=== PATIENT | male | born 1950 | race Caucasian/White ===

== ENCOUNTER 2020-05-20 09:00 | Emergency (ER) | payer MEDICARE, OTHER, SELFPAY ==
[2020-05-20 09:05] VITALS: BP 158/104; PULSE 72; RESP 18; TEMP 36.3; O2SAT 95; BMI 23.7
--- NOTE | 2020-05-20 09:24 | CT_ITS ---
WS: [id number] CT HEAD TECHNIQUE: Noncontrast CT of the head obtained from the skullbase to the vertex. CLINICAL INFORMATION: difficulty walking COMPARISON: MRI and CT DLP: 904.[address] scans at [facility] use at least one of these dose optimization techniques: automat ed exposure control; mA and/or kV adjustment per patient size (includes targeted exams where dose is matched to clinical indication); or iterative reconstruction. FINDINGS: No evidence of intracranial hemorrhage or mass effect. Ventricular system and basal cisterns are coles nt. Mild small vessel changes with moderate parenchymal volume loss. No extra-axial fluid collections . No evidence of mass or mass effect. Normal fam-white differentiation. Mild mucosal thickening ethmoid air cells. Mastoid air cells are well aerated. CT/CT head wo con* [id number] IMPRESSION: 1. No evidence of intracranial hemorrhage or mass effect. 2. Mild small vessel changes. Moderate parenchymal volume loss. 3. No acute intracranial findings. Notified Tyree Francis DO at 05/20/2020 9:55 AM.
--- NOTE | 2020-05-20 09:26 | ED_ITS ---
HPI - Neuro Symptoms/Deficit General: Chief Complaint: Neuro Symptoms/Deficit Stated Complaint: excessive drooling/stumbling/shakes Time Seen by Provider: 05/20/20 09:01 History of Present Illness: HPI Narrative: 61-year-old male with a previous history of stroke with difficulties walking and occasional difficulty with drooling from the right side of his mouth. He said this is been a residual effect of his previous stroke. He was on going to physical therapy today and he mentioned to them that he was still having difficulty with this they referred him to the emergency room. In addition to this he has had some tremor as well. At the time he presents here he has no significant deficits. Onset (ago): minute(s) Location: right face and right leg History of same: Yes Severity: mild Quality: weak Relieving factors: none Exacerbating factors: none Context: gradual onset Associated symptoms: Deny chest pain, malaise, nausea or vomiting Treatments Prior to Arrival: none Review of Systems Const: Denies: fever(s), chills, body aches, change in appetite, fatigue or malaise ENMT: Denies: throat pain, ear or mastoid pain, nasal discharge or nasal congestion Card: Denies: chest pain, edema, dyspnea on exertion or orthopnea Resp: Denies: dyspnea, productive cough or non-productive cough GI: Denies: abdominal pain, nausea, vomiting, hematemesis, coffee ground emesis, diarrhea, constipation, bloating, hematochezia or melena : Denies: flank pain, dysuria, urinary frequency or urinary urgency Skin/Breast: Denies: rash or pruritus PFS ED PFSH: Medical History (Updated 05/21/20 @ 05:31 by Tyree Francis DO) CVA (cerebral vascular accident) NIH stroke score NIHSS: Level Of Consciousness - 1a: 0 Level Of Consciousness Questions - 1b: Both Correct Level Of Consciousness Commands - 1c: Both Correct Best Gaze - 2: Normal Visual Delong - 3: No Visual Loss Facial Palsy - 4: Normal Motor Arm Right - 5: No Drift Motor Arm Left - 5: No Drift Motor Leg Right - 6: No Drift Motor Leg Left - 6: No Drift Limb Ataxia - 7: Absent Sensory - 8: Normal Best Language - 9: No Aphasia Dysarthia - 10: Normal Extinction And Inattention - 11: 0 Score: Total Score: 0 Physical Exam Const: COMMON NORMALS: no acute distress GENERAL APPEARANCE: cooperative and comfortable ORIENTATION/CONSCIOUSNESS: Yes awake, Yes oriented to person, Yes oriented to place and Yes oriented to time HENMT: COMMON NORMALS: normocephalic, atraumatic and hearing grossly normal bilaterally HEAD & SCALP: normocephalic and atraumatic Eye: COMMON NORMALS: Equal, round and reactive pupils present, EOMs intact bilaterally, conjunctivae normal and no scleral icterus CONJUNCTIVA: Yes conjunctivae normal PUPIL: Yes Equal, round and reactive pupils present Neck/C-Spine: COMMON NORMALS: full ROM, no lymphadenopathy, supple and no JVD Lymph: LYMPHATIC: no lymphadenopathy noted and no lymphedema noted Resp: COMMON NORMALS: normal respiratory effort, No retractions, No use of accessory muscles and clear to auscultation bilaterally AUSCULTATION: clear to auscultation bilaterally Cardio: COMMON NORMALS: no JVD, regular rate, regular rhythm and No murmurs present (Cardio) RATE: regular rate RHYTHM: regular rhythm GI: COMMON NORMALS: Soft to palpation and No hepatosplenomegaly present AUSCULTATION: Yes normoactive bowel sounds PALPATION: Yes Soft to palpation, No Tenderness to palpation present (GI), No Guarding due to palpation present (GI) and Yes No hepatosplenomegaly present Extremity: COMMON NORMALS: normal to inspection, capillary refill normal, no clubbing, cyanosis or edema, no calf tenderness and no pedal edema Neuro: SENSORIUM/ORIENTATION: Yes oriented to person, Yes oriented to place and Yes oriented to time Skin: COMMON NORMALS: no rashes or lesions noted GENERAL SKIN EXAM: no rashes or lesions noted Course Vital Signs: Vital signs: Vital Signs Temperature 97.3 F L 05/20/20 09:05 Pulse Rate 50 L 05/20/20 12:43 Respiratory Rate 18 05/20/20 12:43 Blood Pressure 132/88 05/20/20 12:43 Pulse Oximetry 98 05/20/20 12:43 MDM - Neuro Symptoms/Deficit MDM Narrative: Medical decision making narrative: No focal neurologic deficits at this time other than very mild right-sided deficits. Stroke score [address] is negative. His blood pressure is elevated somewhat and could be good for him to start on something else. He cannot take aspirin due to GI intolerance. We will start him on Plavix and amlodipine have him follow-up with his primary care doctor within the next week return if has further problems. Lab Data: Labs: Lab Results 05/20/20 05/20/20 Range/Units 11:35 11:35 WBC 8.3 (4.0-10.0) 10^3/ uL RBC 4.27 (4.1-5.3) 10^6/u L Hgb 13.6 (11.7-16.6) g/dL Hct 41.2 L (42.0-52.0) % MCV 96.5 H (80-94) fL MCH 31.9 (28.0-34.0) pg MCHC 33.0 (30.0-36.0) g/dL RDW 12.7 (12.1-15.1) % Plt Count 282 (130-400) 10^3/c mm MPV 9.3 (7.4-10.4) fL Neut % (Auto) 64.4 % Lymph % (Auto) 24.5 % [place] % (Auto) 7.7 % Eos % (Auto) 2.7 % Baso % (Auto) 0.5 % Neut # (Auto) 5.34 (1.8-7.7) 10^3/u L Lymph # (Auto) 2.0 (0.8-4.8) 10^3/u L [place] # (Auto) 0.6 (0.2-0.9) 10^3/u L Eos # (Auto) 0.2 (0.0-0.8) 10^3/u L Baso # (Auto) 0.0 (0.0-0.1) 10^3/u L Nucleated RBC % (a uto) 0 % Nucleated RBCs # 0.0 /100WBC Sodium 140 (136-145) mmol/L Potassium 4.5 (3.5-5.1) mmol/L Chloride 106 (98-107) mmol/L Carbon Dioxide 28 (22-29) mmol/L Anion Gap 10.5 (5-19) BUN 14 (8-23) mg/dL Creatinine 0.7 (0.7-1.2) mg/dL GFR Calculation 112.1 (90-130) mL/min Glucose 89 (65-115) mg/dL Calculated Osmolal ity 290 (285-295) mOsm/k g Calcium 9.1 (8.5-10.5) mg/dL Total Bilirubin 0.3 (0.15-1.2) mg/dL AST 19 (0-40) U/L ALT 19 (0-41) U/L Alkaline Phosphata se 64 (40-130) IU/L Total Protein 7.0 (6.6-8.7) g/dL Albumin 4.1 (3.5-5.2) g/dL Globulin 2.9 (1.3-4.6) g/dL Discharge Plan Discharge Patient Disposition: Home Clinical Impression: Transient cerebral ischemia, Benign essential HTN Condition: Stable Prescriptions: New Plavix 75 mg tablet 75 mg PO DAILY Qty: 30 RF: 0 amlodipine 2.5 mg tablet 2.5 mg PO DAILY Qty: 30 RF: 0 No Action metoprolol tartrate 50 mg Tablet 50 mg PO BID RF: 0 Discharge Orders: Discharge Order (Routine); Ordered 05/20/20 Ordered By: Tyree Francis Referrals: Loki Wells DO [Primary Care Provider] - Discharge Diet: Usual diet Discharge Activity: Increase activity as tolerated Activity Restrictions/Additional Instructions: Follow-up with your primary care doctor within a week to recheck blood pressure and review use of Plavix. Return immediately if you have any problems. Coding Level of Care Code ED Designated Broker for Khushi Fwd Exam Comprehensive
[2020-05-20 11:39] VITALS: BP 177/91; PULSE 55; RESP 14; O2SAT 95
[2020-05-20 11:43] LABS: Basophils % 0.5 %; Eosinophils # 0.2 10^3/uL (0.0-0.8); Eosinophils % 2.7 %; Hematocrit 41.2 % (42.0-52.0); Hemoglobin 13.6 g/dL (11.7-16.6); Lymphocytes % 24.5 %; Mean Corpuscular Hemoglobin 31.9 pg (28.0-34.0); Mean Corpuscular Volume 96.5 fL (80-94); Mean Platelet Volume 9.3 fL (7.4-10.4); Monocytes # 0.6 10^3/uL (0.2-0.9); Monocytes % 7.7 %; Neutrophils # 5.34 10^3/uL (1.8-7.7); Neutrophils % 64.4 %; Nucleated Red Blood Cells % 0 %; Platelet Count 282 10^3/cmm (130-400); Red Blood Count 4.27 10^6/uL (4.1-5.3); Red Cell Distribution Width 12.7 % (12.1-15.1); White Blood Count 8.3 10^3/uL (4.0-10.0)
[2020-05-20 12:00] LABS: Alanine Aminotransferase 19 U/L (0-41); Albumin Level 4.1 g/dL (3.5-5.2); Alkaline Phosphatase 64 IU/L (40-130); Anion Gap 10.5 (5-19); Aspartate Amino Transferase 19 U/L (0-40); Blood Urea Nitrogen 14 mg/dL (8-23); Calcium 9.1 mg/dL (8.5-10.5); Carbon Dioxide 28 mmol/L (22-29); Chloride 106 mmol/L (98-107); Globulin 2.9 g/dL (1.3-4.6); Glomerular Filtration Rate 112.1 mL/min (90-130); Glucose 89 mg/dL (65-115); Osmolality Calculated 290 mOsm/kg (285-295); Potassium 4.5 mmol/L (3.5-5.1); Sodium 140 mmol/L (136-145); Total Bilirubin 0.3 mg/dL (0.15-1.2)
[2020-05-20 12:43] VITALS: BP 132/88; PULSE 50; RESP 18; O2SAT 98
== END 2020-05-20 12:43 | disposition home or self-care (01) ==
PROVIDERS: Emergency Provider Family Medicine; PCP Electrodiagnostic Medicine
DX: G45.9 Transient cerebral ischemic attack, unspecified (principal); I10 Essential (primary) hypertension; Z86.73 Personal history of transient ischemic attack (TIA), and cerebral infarction without residual deficits
CPT/HCPCS: 12345; 70450; 80053; 85025; 99282; 99283

== ENCOUNTER 2020-06-18 13:59 | Outpatient (CLI) | payer MEDICARE, OTHER, SELFPAY ==
--- NOTE | 2020-06-18 14:12 | USCV_ITS ---
Lyndsay Perea Age: 70 Gender: M : 1950 Exam Date: 06/18/2020 14:26 Ordering Phys: Loki Wells DO Technologist: Moises Bajwa Exam Location: [facility] [place]_ Indication: DYSURTHRIA. HYPERTENSION Risk Factors: Previous Vascular Surgery: Right Brachial BP: / Left Brachial BP: / Right Left Velocity (cm/s) Spectral Plaque Velocity (cm/s) Spectral Plaque Syst/Diast Broadening Syst/Diast Broadening 104.70/24.30 Prox CCA 130.10/ 28.70 82.80/ 22.30 Mid CCA 93.70 / 27.60 65.80/ 17.90 Distal CCA 76.10 / 25.40 71.50/ 13.20 Prox ICA 86.20 / 12.40 50.00/ 17.90 Mid ICA 93.20 / 34.20 114.50/43.60 Distal ICA 93.20 / 37.30 101.80 ECA 137.80 0.60 ICA/CCA 0.99 Antegrade Vertebral Antegrade 36.30/ 11.20 cm/s 67.60/ 21.00 cm/s Tri Subclavian Tri 144.4 93.10 0 FINDINGS Comparison: none available. No significant elevation of systolic or diastolic velocities. Waveforms are normal. Minimal bilateral, intimal thickening with no elevation of velocity. CONCLUSIONS Bilateral ICA stenosis less than 50%. Minimal carotid atherosclerosis. Dr. Ariadna Camarena DO (Electronically Signed) Final Date: 18 June 2020 16:03 S
== END 2020-06-18 14:00 | disposition home or self-care (01) ==
PROVIDERS: PCP Electrodiagnostic Medicine; Visit Provider Electrodiagnostic Medicine
DX: R47.1 Dysarthria and anarthria (principal); I10 Essential (primary) hypertension; G60.9 Hereditary and idiopathic neuropathy, unspecified; F17.210 Nicotine dependence, cigarettes, uncomplicated; E78.5 Hyperlipidemia, unspecified; I63.50 Cerebral infarction due to unspecified occlusion or stenosis of unspecified cerebral artery; I65.23 Occlusion and stenosis of bilateral carotid arteries
CPT/HCPCS: 93880

== ENCOUNTER 2020-07-16 20:00 | Outpatient (CLI) | payer MEDICARE, OTHER, SELFPAY | END 2020-07-16 20:01 | disposition home or self-care (01) | LOC: SLEEP 07-17 09:57 | PROVIDERS: PCP Electrodiagnostic Medicine; Visit Provider Electrodiagnostic Medicine | DX: G47.33 Obstructive sleep apnea (adult) (pediatric) (principal); J44.1 Chronic obstructive pulmonary disease with (acute) exacerbation | CPT/HCPCS: 95810 ==

== ENCOUNTER 2020-07-23 09:52 | Outpatient (CLI) | payer MEDICARE, OTHER, SELFPAY ==
--- NOTE | 2020-07-23 10:03 | CT_ITS ---
WS: [id number] CTA OF THE CHEST WITH PULMONARY EMBOLISM PROTOCOL TECHNIQUE: High-resolution contrast enhanced CTA of the chest with coronal and sagittal reformatted i mages with pulmonary embolism protocol. MIP images are also reviewed. CLINICAL INFORMATION: COPD/CHEST PAIN/DYSPNEA ON EXERTION/HTN COMPARISON: CT chest November 30, 2017 DLP: 548.[address] scans at [facility] use at least one of these dose optimization techniques: automat ed exposure control; mA and/or kV adjustment per patient size (includes targeted exams where dose is matched to clinical indication); or iterative reconstruction. FINDINGS: Proximal main pulmonary arteries are normal. Normal segmental and subsegmental pulmonary arteries. No evidence of pulmonary embolus. Normal caliber thoracic aorta. No mediastinal or hilar lymphadenopath y. No axillary lymphadenopathy. Moderate chronic emphysematous changes. No acute pulmonary infiltrates. A few small hazy groundglass pulmonary nodules in the right upper lobe measuring 5 mm, left lower lobe measuring 5 mm, right lower lobe laterally measuring 6 mm with subsegmental atelectasis in the lower lobes. Additional fibrotic nodule right upper lobe measuring 4 mm. Pleural thickening and fibrosis in the right middle lobe. Adrenal glands are normal. Small esophageal hiatal hernia. CT/CT angio chest PE protcl [id number] IMPRESSION: 1. No evidence of pulmonary embolus. 2. No mediastinal or hilar lymphadenopathy. 3. Moderate chronic emphysematous changes. No acute pulmonary infiltrates. 4. A few noncalcified groundglass pulmonary nodules measuring 5 to 6 mm descri bed above. A few of these are slightly more prominent compared to 2018. Recomm end 6 month follow-up. 5. Subsegmental atelectasis in the lung bases.
--- NOTE | 2020-07-23 10:03 | USCV_ITS ---
Lyndsay Perea Age: 70 Gender: M : 1950 Exam Date: 07/23/2020 10:13 Ordering Phys: Loki Wells DO Technologist: Paula Thomas [place] [facility] [place]ication: copd, chest pain BP: 121 / 66 HR: 127 Rhythm: Sinus Technical Quality: Technically difficult study MEASUREMENTS (Male / Female) Normal Values 2D ECHO LV Diastolic Diameter PLAX 2.5 cm 4.2 - 5.9 / 3.9 - 5.3 cm LV Systolic Diameter PLAX 1.7 cm LV Chamber Size 3.6 cm IVS Diastolic Thickness 1.7 cm 0.6 - 1.0 / 0.6 - 0.9 cm IVS Systolic Thickness 2.1 cm LVPW Diastolic Thickness 2.2 cm 0.6 - 1.0 / 0.6 - 0.9 cm LVPW Systolic Thickness 1.9 cm RV Chamber Size 3.2 cm LVOT Diameter 2.0 cm LV Ejection Fraction 2D Teich 62.4 % LV Ejection Fraction MOD 2C 62.6 % LV Ejection Fraction 2C AL 61.2 % LA Width 2.9 cm LA Height 4.2 cm RA Width 4.2 cm RA Height 2.6 cm DOPPLER AV Peak Velocity 124.0 cm/s LVOT Peak Velocity 92.0 cm/s AV Area Cont Eq vti 2.3 cm squared AV Area Cont Eq pk 2.4 cm squared MV Area PHT 3.3 cm squared Mitral E to A Ratio 1.0 MV E' Velocity 42.0 cm/s Mitral E to MV E' Ratio 4.5 Mitral E to LV E' Lateral Ratio 4.3 Mitral E to LV E' Septal Ratio 4.8 TR Peak Velocity 220.0 cm/s TR Peak Gradient 19.4 mmHg TV Peak E Velocity 82.0 cm/s Right Atrial Pressure 3.0 mmHg Pulmonary Artery Systolic Pressu 22.4 mmHg PV Peak Velocity 39.0 cm/s RV Acceleration Time 0.1 s RV Ejection Time 0.3 s RV AcT/ET 0.4 FINDINGS Left Ventricle Normal left ventricular cavity size. Normal left ventricular systolic function. Left ventricular ejection fraction is estimated at 60 %. Although no diagnostic regional wall motion abnormality could be identified, this possibilty cannot be completely excluded. Normal diastolic function. Right Ventricle Normal right ventricular size and systolic function. Right ventricular systolic pressure 22.4 mmHg. Right Atrium Right atrium not well visualized. Mildly increased right atrial size. Left Atrium Normal left atrial size. Mitral Valve Structurally normal mitral valve. No mitral valve stenosis. Trace mitral valve regurgitation. Aortic Valve Aortic valve not well visualized. No aortic valve stenosis. No aortic valve regurgitation. Tricuspid Valve Structurally normal tricuspid valve. Mild tricuspid valve regurgitation. Pulmonic Valve Pulmonic valve not well visualized. Pericardium No pericardial effusion. Aorta Aorta not well visualized. CONCLUSIONS 1. This is a technically difficult study. 2. Normal left ventricular cavity size and systolic function. Left ventricular ejection fraction is estimated at 60 %. Although no diagnostic regional wall motion abnormality could be identified, this possibilty cannot be completely excluded. Normal diastolic function. 3. No significant valvular abnormality. 4. No prior similar studies to compare. Jessica Mo MD (Electronically Signed) Final Date: 27 July 2020 07:29 S
[2020-07-23 11:02] LABS: Blood Urea Nitrogen 20 mg/dL (8-23); Glomerular Filtration Rate 95.8 mL/min (90-130)
[2020-07-23] MEDS: iohexol 350 mg/mL 100 mL Btl IV (11:43)
== END 2020-07-23 09:53 | disposition home or self-care (01) ==
LOC: CT 09:53
PROVIDERS: PCP Electrodiagnostic Medicine; Visit Provider Electrodiagnostic Medicine
DX: J44.9 Chronic obstructive pulmonary disease, unspecified (principal); R07.9 Chest pain, unspecified; R06.00 Dyspnea, unspecified; I10 Essential (primary) hypertension; R91.8 Other nonspecific abnormal finding of lung field
CPT/HCPCS: 71275; 82565; 84520; 93306

== ENCOUNTER 2020-12-18 10:58 | Outpatient (CLI) | payer MEDICARE, OTHER, SELFPAY ==
--- NOTE | 2020-12-18 11:18 | FL_ITS ---
WS: [id number] Modified barium swallow, 12/18/2020 Clinical Data: Other dysphagia Comparison: None. Fluoroscopy time: 2.6 minutes. Findings: The patient had mild residue after swallowing did clear with double swallowing. There is premature sp illage with multiple consistencies. With thin barium there was aspiration. However with a chin tuck t here was only a trace of penetration. With food items there was moderate residue in the vallecula. It was occasional piriform is residue. FL/FL barium swallow modifd [id number] Impression: 1. Premature spillage with multiple consistencies. 2. Aspiration with liquids which improved with the chin tuck. 3. Mild residue in the vallecula and piriform sinus which cleared with swallowi ng.
== END 2020-12-18 10:59 | disposition home or self-care (01) ==
LOC: RAD 11:04
PROVIDERS: PCP Electrodiagnostic Medicine; Visit Provider Electrodiagnostic Medicine
DX: R13.10 Dysphagia, unspecified (principal); I63.9 Cerebral infarction, unspecified
CPT/HCPCS: 74230; 92611

== ENCOUNTER 2020-12-30 14:11 | Outpatient (RCR) | payer MEDICARE, OTHER, SELFPAY | END 2021-01-08 23:59 | disposition home or self-care (01) | LOC: SST 14:11 | PROVIDERS: PCP Electrodiagnostic Medicine; Referring Provider Electrodiagnostic Medicine; Visit Provider Electrodiagnostic Medicine | DX: I69.391 Dysphagia following cerebral infarction (principal) | CPT/HCPCS: 92526; 92610 ==

== ENCOUNTER → 2021-01-07 13:16 | Outpatient (BNVA) | payer MEDICARE, OTHER, SELFPAY | PROVIDERS: Family Provider Electrodiagnostic Medicine; PCP Electrodiagnostic Medicine; Visit Provider Electrodiagnostic Medicine | DX: Z01.812 Encounter for preprocedural laboratory examination (principal); Z20.822 Contact with and (suspected) exposure to COVID-19 | CPT/HCPCS: 87635 ==

== ENCOUNTER → 2021-01-07 13:16 | Outpatient (BNVA) | payer MEDICARE, OTHER, SELFPAY | PROVIDERS: Family Provider Electrodiagnostic Medicine; PCP Electrodiagnostic Medicine; Visit Provider Electrodiagnostic Medicine | DX: Z01.812 Encounter for preprocedural laboratory examination (principal); Z20.822 Contact with and (suspected) exposure to COVID-19 | CPT/HCPCS: 87635 ==

== ENCOUNTER 2021-01-09 06:00 | Outpatient (RCR) | payer MEDICARE, OTHER, SELFPAY | END 2021-02-08 23:59 | disposition home or self-care (01) | LOC: SST 06:00 | PROVIDERS: Family Provider Electrodiagnostic Medicine; PCP Electrodiagnostic Medicine; Referring Provider Electrodiagnostic Medicine; Visit Provider Electrodiagnostic Medicine | DX: I69.391 Dysphagia following cerebral infarction (principal) | CPT/HCPCS: 92507 ==

== ENCOUNTER 2021-01-13 07:47 | Outpatient (CLI) | payer MEDICARE, OTHER, SELFPAY ==
--- NOTE | 2021-01-13 12:36 | PFTS_ITS ---
Date of Study:01/13/21 Date of Dictation: 01/17/2021 MECHANICS: Forced vital capacity (FVC) is normal. Forced expiratory volume in one second (FEV1) is moderately reduced 56%. FEV1/FVC is reduced. Postbronchodilator study not performed.. FLOW VOLUME LOOP: Sloping of expiratory limb suggestive of airway obstruction . LUNG VOLUMES: Total lung capacity (TLC) is mildly increased. Residual volume (RV) is increased suggestive of moderate air trapping. DIFFUSING CAPACITY FOR CARBON MONOXIDE: Moderately reduced 50% . INTERPRETATION: The pulmonary function tests are consistent with moderate obstructive ventilatory defect with moderate air trapping. Prebronchodilator FVC is 3.77 L and 100%, prebronchodilator FEV1 1.61 L and 50% of predicted. Postbronchodilator study not performed. There is moderate gas transfer defect 50%. Overall study for history of COPD more likely emphysema. Clinical correlation is recommended. MTDD
== END 2021-01-13 07:48 | disposition home or self-care (01) ==
PROVIDERS: PCP Electrodiagnostic Medicine; Visit Provider Electrodiagnostic Medicine
DX: J44.9 Chronic obstructive pulmonary disease, unspecified (principal); R07.9 Chest pain, unspecified; R06.09 Other forms of dyspnea; I10 Essential (primary) hypertension
CPT/HCPCS: 94010; 94618; 94726; 94729

== ENCOUNTER 2021-02-12 06:58 | Outpatient (CLI) | payer MEDICARE, OTHER, SELFPAY ==
[2021-02-12 07:22] VITALS: BMI 23.7
--- NOTE | 2021-02-12 07:26 | ECG_ITS ---
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 Interpretive Statements NAME OF STUDY: LEXISCAN SESTAMIBI STRESS TEST INDICATION: Chest Pain PROCEDURE: At the baseline, the blood pressure was 125/86 mmHg, oxygen saturation 94% with a heart rate of 47 bpm. The electrocardiogram showed sinus bradycardia, normal axis with nonspecific ST depression. The Lexiscan was infused over a period of 20 seconds. A total of 0.4 milligrams of Lexiscan was infused. The stress phase was continued for a total of 5 minutes. Heart rate at the end of the stress phase was 65 bpm, oxygen saturation 95% with a blood pressure of 111/69 mmHg. The EKG at the peak infusion revealed sinus rhythm with no significant ST-T wave changes. The study was terminated due to protocol completion. Sestamibi was injected 20 seconds after the Lexiscan infusion. Blood pressure at the end of the recovery phase was 115/73 mmHg, oxygen saturation 93% with a heart rate of 64 beats per minute. CONCLUSION: 1. No significant EKG changes with the LexiScan infusion. 2. No LexiScan induced chest pain or cardiac arrhythmia. 3. Normal blood pressure and heart rate response. 4. Sestamibi/sestamibi perfusion scan pending; see separate report. Electronically Signed On 02-18-2021 12:49:38 CDT by Jessica Mo M.D. [id number]
--- NOTE | 2021-02-12 07:27 | NMCV_ITS ---
NM kimberly perf SPECT r/s* [id number] Lyndsay Perea Age: 70 Gender: M : 1950 Exam Date: 02/12/2021 08:19 Ordering Phys: Jessica Mo MD ([email or web address]) Technologist: PEDRO LUIS Lindquist Exam Location: [facility] Indications: CHEST PAIN STRESS TEST Please see separate stress test report in [facility] for full findings IMAGE PROTOCOL Rest/Stress 1 Lexiscan Day Radiopharmaceutical Dose (mCi) Administration Site Administered by Rest: Tc-99m 11.0 IV PEDRO LUIS Lindquist Sestamibi Stress:Tc-99m 32.7 IV PEDRO LUIS Lindquist Sestamibi Rest: 12-Feb-2021 60 Discovery 630 Stress: 12-Feb-2021 30 Discovery 630 0.4mg Lexiscan. Images obtained in supine and prone position. SPECT RESULTS Technical Quality: Excellent Raw Data Analysis: Normal, Subdiaphragmatic activity (Small hiatal hernia) Image Corrections: No attenuation or motion correction applied Summed Stress Score: 2 Summed Rest Score: 4 Summed Difference Score: 0 PERFUSION FINDINGS Small sized perfusion abnormality of mild severity of mid inferoseptal, apical septal and mid to apical inferior trujillo on rest images with improved tracer uptake in inferior wall on stress images. FUNCTIONAL RESULTS (calculated via Gated SPECT) Stress Image LV EF (%): 63 Stress EDV (mL):115 TID: 0.91 Stress ESV (mL):42 FUNCTIONAL FINDINGS: The left ventricle is normal in size. Transient Ischemia Dilatation of 0.91. There is normal left ventricular systolic function. The left ventricular ejection fraction is normal with a value of 63%. There is normal left ventricular wall thickening. IMPRESSIONS 1. Small sized perfusion abnormality of mild severity of mid inferoseptal, apical septal and mid to apical inferior trujillo with somewhat improved tracer uptake in stress images. 2. This may represent old myocardial infarction in right coronary artery territory or attenuation artifact. 3. Overall left ventricular systolic function is normal without regional wall motion abnormalities, LVEF=63%. 4. No coronary ischemia based on the study. Jessica Mo MD (Electronically Signed) Final Date: 13 February 2021 17:31 S
[2021-02-12] MEDS: regadenoson 0.4 Mg/5 ml Syringe IVP (08:58)
[2021-02-12 09:09] VITALS: BP 115/73; PULSE 61
== END 2021-02-12 06:59 | disposition home or self-care (01) ==
LOC: CDL 07:00
PROVIDERS: PCP Electrodiagnostic Medicine; Visit Provider Internal Medicine Cardiovascular Disease
DX: R07.9 Chest pain, unspecified (principal); I25.2 Old myocardial infarction
CPT/HCPCS: 78452; 93017; A9500; J2785

== ENCOUNTER 2021-06-19 08:54 | Outpatient (RCR) | payer MEDICARE, OTHER, SELFPAY | END 2021-07-11 23:59 | disposition home or self-care (01) | LOC: PULRHB 08:54 | PROVIDERS: PCP Electrodiagnostic Medicine; Visit Provider Internal Medicine Pulmonary Disease | DX: J44.9 Chronic obstructive pulmonary disease, unspecified (principal) | CPT/HCPCS: 94618 ==

== ENCOUNTER 2021-07-12 06:00 | Outpatient (RCR) | payer MEDICARE, OTHER, SELFPAY | END 2021-08-11 23:59 | disposition home or self-care (01) | LOC: PULRHB 06:00 | PROVIDERS: PCP Electrodiagnostic Medicine; Visit Provider Internal Medicine Pulmonary Disease | DX: J44.9 Chronic obstructive pulmonary disease, unspecified (principal) | CPT/HCPCS: 94626; G0424 ==

== ENCOUNTER 2021-08-12 06:00 | Outpatient (RCR) | payer MEDICARE, OTHER, SELFPAY | END 2021-09-08 23:59 | disposition home or self-care (01) | LOC: PULRHB 06:00 | PROVIDERS: PCP Electrodiagnostic Medicine; Visit Provider Internal Medicine Pulmonary Disease | DX: J44.9 Chronic obstructive pulmonary disease, unspecified (principal) | CPT/HCPCS: 94626; G0424 ==

== ENCOUNTER 2021-09-09 06:00 | Outpatient (RCR) | payer MEDICARE, OTHER, SELFPAY | END 2021-10-09 23:59 | disposition home or self-care (01) | LOC: PULRHB 06:00 | PROVIDERS: PCP Electrodiagnostic Medicine; Visit Provider Internal Medicine Pulmonary Disease | DX: J44.9 Chronic obstructive pulmonary disease, unspecified (principal) | CPT/HCPCS: 94626 ==

== ENCOUNTER 2022-01-07 12:16 | Outpatient (CLI) | payer MEDICARE, OTHER, SELFPAY ==
--- NOTE | 2022-01-07 12:25 | CT_ITS ---
WS: [id number] CT HEAD TECHNIQUE: Noncontrast CT of the head obtained from the skullbase to the vertex. CLINICAL INFORMATION: DYSEQUILIBRIUM COMPARISON: CT May 20, 2020 and MRI DLP: 1155.[address] scans at [facility] use at least one of these dose optimization techniques: automated e xposure control; mA and/or kV adjustment per patient size (includes targeted exams where dose is matc hed to clinical indication); or iterative reconstruction. FINDINGS: No evidence of intracranial hemorrhage or mass effect. Ventricular system and basal cisterns are coles nt. Mild small vessel changes with moderate parenchymal volume loss. No extra-axial fluid collections . No evidence of mass or mass effect. Paranasal sinuses and mastoid air cells are well aerated. Mild mucosal thickening ethmoid air cells. Normal posterior nasopharynx.Small LEFT parietal scalp lipoma unchanged CT/CT head wo con* [id number] IMPRESSION: 1. No evidence of intracranial hemorrhage or mass effect. 2. Mild small vessel changes. Moderate parenchymal volume loss. 3. No significant change compared to May 20, 2020 and 4. No acute intracranial findings.
== END 2022-01-07 12:17 | disposition home or self-care (01) ==
LOC: RAD 12:16
PROVIDERS: PCP Electrodiagnostic Medicine; Visit Provider Electrodiagnostic Medicine
DX: R42 Dizziness and giddiness (principal)
CPT/HCPCS: 70450

== ENCOUNTER → 2022-04-30 08:18 | Outpatient (BNVA) | payer MEDICARE, OTHER, SELFPAY | PROVIDERS: PCP Electrodiagnostic Medicine; Visit Provider Internal Medicine Pulmonary Disease | DX: R06.00 Dyspnea, unspecified (principal); R91.8 Other nonspecific abnormal finding of lung field; J44.9 Chronic obstructive pulmonary disease, unspecified; I10 Essential (primary) hypertension; Z87.891 Personal history of nicotine dependence; G47.33 Obstructive sleep apnea (adult) (pediatric) | CPT/HCPCS: 99214 ==

== ENCOUNTER 2022-05-05 06:13 | Outpatient (CLI) | payer MEDICARE, OTHER, SELFPAY ==
--- NOTE | 2022-05-05 06:30 | CT_ITS ---
WS: [id number] CT CHEST TECHNIQUE: Noncontrast CT of the chest with coronal and sagittal reformatted images. CLINICAL INFORMATION: f/u lung nodules COMPARISON: CT 07/23/20 DLP: 742.[address] scans at [facility] use at least one of these dose optimization techniques: automated e xposure control; mA and/or kV adjustment per patient size (includes targeted exams where dose is matc hed to clinical indication); or iterative reconstruction. FINDINGS: No significant change in the several scattered subcentimeter pulmonary nodules recently micah cribed. No new or progressive nodules or opacities. Subsegmental atelectasis in the lung bases. 12 mo nth follow-up. No mediastinal or hilar lymphadenopathy. Moderate chronic emphysematous changes. No acute pulmonary infiltrates. Subsegmental atelectasis in t he lung bases. No focal pneumonia or pleural fluid. Irregular calcification. Coronary calcification. No axillary lymphadenopathy. Postoperative changes GE junction. Adrenal glands are normal. RIGHT uppe r pole renal cyst measuring 2.[address]/CT chest con [id number] IMPRESSION: 1. No significant changes in the several scattered subcentimeter pulmonary nod ules since July 23, 2020. Recommend 12 month follow-up.
== END 2022-05-05 06:14 | disposition home or self-care (01) ==
LOC: RAD 06:14
PROVIDERS: PCP Electrodiagnostic Medicine; Visit Provider Internal Medicine Pulmonary Disease
DX: R91.8 Other nonspecific abnormal finding of lung field (principal)
CPT/HCPCS: 71250

== ENCOUNTER 2022-05-30 20:24 | Emergency (ER) | payer MEDICARE, OTHER, SELFPAY ==
[2022-05-30 20:34] VITALS: BP 148/89; PULSE 69; RESP 18; TEMP 36.5; O2SAT 95; BMI 23.7
[2022-05-30 20:38] VITALS: BP 146/81; PULSE 52; RESP 17; TEMP 36.5; O2SAT 96
--- NOTE | 2022-05-30 20:43 | ECG_ITS ---
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 Measurements Intervals [place] Rate: 65 P: 30 VA: 219 QRS: 43 QRSD: 97 T: 75 QT: 397 QTc: 414 Interpretive Statements SINUS RHYTHM WITH FIRST DEGREE AV BLOCK MODERATE ST DEPRESSION [0.05+ mV ST DEPRESSION] Compared to ECG 11/02/2018 19:33:37 First degree AV block now present ST (T wave) deviation now present Myocardial infarct finding no longer present Electronically Signed On 06-01-2022 18:20:02 FOOD BROKER by Darwin Carrera M.D. [id number]
--- NOTE | 2022-05-30 21:42 | PC.NURSE ---
EKG completed and reviewed by Dr. Clifford @ 2505. No acute changes noted at this time.
[2022-05-30 22:48] VITALS: PULSE 54; RESP 17; O2SAT 97
[2022-05-30 23:00] VITALS: BP 137/64; PULSE 52; RESP 22; O2SAT 93
--- NOTE | 2022-05-30 23:29 | CTR_ITS ---
PROCEDURE INFORMATION: Exam: CT Head Without Contrast Exam date and time: 05/31/2022 12:49 AM Age: 72 years old Clinical indication: Dizziness; Additional info: Dizzy TECHNIQUE: Imaging protocol: Computed tomography of the head without contrast. Radiation optimization: All CT scans at this facility use at least one of these dose optimization techniques: automated exposure control; mA and/or kV adjustment per patient size (includes targeted exams where dose is matched to clinical indication); or iterative reconstruction. COMPARISON: CT head wo con* [id number] 01/07/2022 12:32 PM RADIATION DOSE METRICS: Total DLP (mGy-cm): 1348.08 FINDINGS: Brain: Age related parenchymal volume loss noted. There is decreased attenuation of the periventricular white matter, consistent with mild chronic microangiopathic white matter disease. No parenchymal edema identified. No intracranial hemorrhage noted. Cerebral ventricles: No ventriculomegaly. Paranasal sinuses: Visualized sinuses are unremarkable. No air fluid levels. Mastoid air cells: Unremarkable as visualized. No mastoid effusion. Bones/joints: Unremarkable. No acute fracture. Soft tissues: Unremarkable. CT/CT head wo con* [id number] IMPRESSION: 1. No acute intracranial abnormality demonstrated. 2. There is no interval change from the prior CT head examination of 01/07/2022.
--- NOTE | 2022-05-30 23:29 | XRR_ITS ---
PROCEDURE INFORMATION: Exam: XR Chest Exam date and time: 05/31/2022 1:08 AM Age: 72 years old Clinical indication: Other: Dizziness TECHNIQUE: Imaging protocol: Radiologic exam of the chest. Views: 1 view. COMPARISON: CT chest con [id number] 05/05/2022 6:22 AM FINDINGS: Lungs: The lungs are hyperinflated, consistent with COPD. Mild fibrosis at the lung bases. No consolidative pulmonary infiltrates are noted. Pleural spaces: No pleural effusion. No pneumothorax. Heart/Mediastinum: No cardiomegaly. Bones/joints: Unremarkable. XR/XR chest 1V portable [id number] IMPRESSION: 1. The lungs are hyperinflated, consistent with COPD. 2. No acute abnormality demonstrated.
--- NOTE | 2022-05-30 23:29 | CTR_ITS ---
PROCEDURE INFORMATION: Exam: CTA Head With Contrast, Arteriography Exam date and time: 05/31/2022 12:52 AM Age: 72 years old Clinical indication: Dizziness and giddiness; Additional info: Dizzy TECHNIQUE: Imaging protocol: Computed tomographic angiography of the head with contrast. Exam focused on the arteries. 3D rendering (Not supervised by radiologist): MIP and/or 3D reconstructed images were created by the technologist. Radiation optimization: All CT scans at this facility use at least one of these dose optimization techniques: automated exposure control; mA and/or kV adjustment per patient size (includes targeted exams where dose is matched to clinical indication); or iterative reconstruction. Contrast material: OMNIPAQUE 350; Contrast volume: 100 ml; Contrast route: INTRAVENOUS (IV); COMPARISON: CT head wo con* [id number] 05/31/2022 12:49 AM RADIATION DOSE METRICS: Total DLP (mGy-cm): 598.53 FINDINGS: ANTERIOR CIRCULATION: Right internal carotid artery: Intracranial segment is patent with no significant stenosis. No aneurysm. Right middle cerebral artery: No occlusion or significant stenosis. No aneurysm. Right anterior cerebral artery: No occlusion or significant stenosis. No aneurysm. Left internal carotid artery: Intracranial segment is patent with no significant stenosis. No aneurysm. Left middle cerebral artery: No occlusion or significant stenosis. No aneurysm. Left anterior cerebral artery: No occlusion or significant stenosis. No aneurysm. POSTERIOR CIRCULATION: Right vertebral artery: No occlusion or significant stenosis. No aneurysm. Left vertebral artery: No occlusion or significant stenosis. No aneurysm. Basilar artery: No occlusion or significant stenosis. No aneurysm. Right posterior cerebral artery: No occlusion or significant stenosis. No aneurysm. Left posterior cerebral artery: No occlusion or significant stenosis. No aneurysm. Brain: No evidence of acute intracranial hemorrhage. The fam-white matter differentiation is maintained although evaluation is limited due to the presence of contrast. No significant mass effect or midline shift. Cerebral ventricles: Mild cerebral volume loss and ex vacuo dilation of the ventricles. Paranasal sinuses: Mild paranasal sinus disease with mild mucosal thickening of the ethmoid air cells. There is a johanna bullosa of the right middle turbinate. The nasal septum is deviated to the left with a septal spur in contact with the left inferior turbinate. There is mild hypertrophy of the right inferior turbinate Dental: The patient is edentulous. Bones/joints: Unremarkable. No acute fracture. Soft tissues: Unremarkable. PROCEDURE INFORMATION: Exam: CTA Neck With Contrast Exam date and time: 05/31/2022 12:52 AM Age: 72 years old Clinical indication: Dizziness and giddiness; Additional info: Dizzy TECHNIQUE: Imaging protocol: Computed tomographic angiography of the neck with contrast. 3D rendering (Not supervised by radiologist): MIP and/or 3D reconstructed images were created by the technologist. Radiation optimization: All CT scans at this facility use at least one of these dose optimization techniques: automated exposure control; mA and/or kV adjustment per patient size (includes targeted exams where dose is matched to clinical indication); or iterative reconstruction. Contrast material: OMNIPAQUE 350; Contrast volume: 100 ml; Contrast route: INTRAVENOUS (IV); COMPARISON: CT angio chest PE protcl [id number] 07/23/2020 11:25 AM RADIATION DOSE METRICS: Total DLP (mGy-cm): 598.53 FINDINGS: Right common carotid artery: There are atherosclerotic calcifications of the right carotid bifurcation with no significant stenosis by NASCET criteria. The right common carotid artery is patent. Right internal carotid artery: The remaining right internal carotid artery is patent. Right external carotid artery: No occlusion or stenosis of the origin. Left common carotid artery: The left common carotid artery is patent. Left internal carotid artery: There are atherosclerotic calcifications of the left carotid siphon with no significant stenosis by NASCET criteria. The remaining left internal carotid artery is patent. There are atherosclerotic calcifications of the left carotid siphon without high-grade stenosis. There are atherosclerotic calcifications of the left carotid siphon without high-grade stenosis. Left external carotid artery: No occlusion or stenosis of the origin. Right vertebral artery: No stenosis. No dissection or occlusion. Left vertebral artery: No stenosis. No dissection or occlusion. Basilar artery: Mild atherosclerotic disease of the basilar artery without significant stenosis. Brachiocephalic artery: There are atherosclerotic calcifications of the brachiocephalic trunk without significant stenosis. There are atherosclerotic calcifications of the left common carotid artery without significant stenosis. Left subclavian artery: There are atherosclerotic calcifications of the left subclavian artery without significant stenosis. Aorta: There are atherosclerotic calcifications of the aortic arch. The bifurcation of the aortic arch vessels is typical. Soft tissues: Normal. No significant soft tissue swelling. Bones/joints: No acute fracture. Lungs: Diffuse centrilobular and mild paraseptal emphysema. There is a 7 x 4 mm indeterminate nodule in the right upper lobe of the lung, (series 4, image 21). There are calcific densities in the left axilla, likely calcified lymph nodes. There are small mediastinal lymph nodes. There are nonspecific small cervical lymph nodes. Other findings: The bilateral middle cerebral arteries are patent. The bilateral anterior cerebral arteries are patent. Mild atherosclerotic disease of the vertebral arteries without significant stenosis. Mild atherosclerotic disease of the V4 segments of the vertebral arteries without significant stenosis. The posterior cerebral arteries are patent. CT/CT angio headneck* [id number] IMPRESSION: No evidence of acute intracranial hemorrhage, mass effect, or midline shift. IMPRESSION: 1. No large vessel occlusion or hemodynamically significant stenosis in the head or the neck. 2. Emphysema. 3. Indeterminate 7 mm nodule in the right upper lobe. A short-term CT of the chest within 6 -12 months is recommended for further evaluation according to Fleischner criteria. REFERENCES: NASCET CRITERIA. The degree of stenosis in the cervical segment of the internal carotid artery is based on NASCET criteria. Normal is no stenosis. Mild is less than 50% stenosis. Moderate is 50-69% stenosis. Severe is 70% to 99% stenosis. Total occlusion is no detectable patent lumen.
[2022-05-30] MEDS: sodium chloride 0.9% 500 ML IV (23:50)
[2022-05-31 00:04] LABS: Basophils % 0.3 %; Eosinophils # 0.1 10^3/uL (0.0-0.8); Eosinophils % 0.9 %; Hematocrit 42.4 % (42.0-52.0); Lymphocytes # 2.2 10^3/uL (0.8-4.8); Lymphocytes % 24.3 %; Mean Corpuscular Hemoglobin 32.2 pg (28.0-34.0); Mean Corpuscular Volume 97.5 fl (80-94); Monocytes # 0.8 10^3/uL (0.2-0.9); Monocytes % 9.1 %; Neutrophils # 5.93 10^3/uL (1.8-7.7); Neutrophils % 64.9 %; Nucleated Red Blood Cells % 0 %; Platelet Count 313 10^3/cmm (130-400); Red Blood Count 4.35 10^6/uL (4.1-5.3); Red Cell Distribution Width 12.8 % (12.1-15.1); White Blood Count 9.1 10^3/uL (4.0-10.0)
[2022-05-31 00:07] VITALS: BP 171/90; PULSE 56; RESP 23; O2SAT 97
[2022-05-31 00:21] LABS: Alanine Aminotransferase 21 U/L (0-41); Albumin Level 4.1 g/dL (3.5-5.2); Alkaline Phosphatase 54 U/L (40-130); Anion Gap 11.5 (5-19); Aspartate Amino Transferase 18 U/L (0-40); Blood Urea Nitrogen 19 mg/dL (8-23); Calcium 9.2 mg/dL (8.5-10.5); Carbon Dioxide 29 mmol/L (22-29); Chloride 103 mmol/L (98-107); Creatine Phosphokinase 67 U/L (39-308); Globulin 2.8 g/dL (1.3-4.6); Glucose 134 mg/dL (65-115); Magnesium 2.1 mg/dL (1.7-2.3); Osmolality Calculated 294 mOsm/kg (285-295); Potassium 3.5 mmol/L (3.5-5.1); Sodium 140 mmol/L (136-145); Total Bilirubin 0.4 mg/dL (0.15-1.2); Total Protein 6.9 g/dL (6.6-8.7)
[2022-05-31] MEDS: iohexol 350 mg/mL 500 mL Btl (per mL) IV (00:49)
[2022-05-31 01:00] VITALS: BP 158/91; PULSE 65; RESP 20; O2SAT 95
[2022-05-31 01:26] LABS: Add Urine Microscopic? NO; Charge for UA Resulting for Rev
--- NOTE | 2022-05-31 01:30 | ED_ITS ---
HPI - Dizziness General: Chief Complaint: Dizziness Stated Complaint: high bp Time Seen by Provider: 05/30/22 23:08 Source: patient and family History of Present Illness: HPI Narrative: 72-year-old male with a history of peripheral arterial disease. He presents after a sudden onset of dizziness tonight when getting up to walk from the living room to the kitchen to get dinner. His dizziness is improved currently. It seemed to worsen when he looks down. His blood pressure was high at home as well. He denies significant headache. He denies chest pain. MD elicited complaint: dizziness and difficulty walking Pertinent past history: other Onset (ago): hour(s) Timing: sudden onset Severity: moderate Description: room spinning , off-balance and difficulty walking Context: other History of similar symptoms: Yes Exacerbating factors: movement/ambulation and change in body position Relieving factors: remaining still Associated symptoms: Reports nausea; Denies change in hearing, chest pain, chills, cough, diaphoresis, fevers/chills, short of breath, vomiting or weakness Associated neuro symptoms: Reports gait changes; Deny confusion, difficulty speaking, dysphagia, extremity weakness, facial numbness, facial weakness, numbness in extremities or visual changes Review of Systems Const: Denies: fever(s), chills or diaphoresis Eyes: Denies: change in vision ENMT: Denies: change in hearing Card: Denies: chest pain Resp: Denies: dyspnea, productive cough or non-productive cough GI: Reports: nausea; Denies: vomiting or dysphagia Neuro: Reports: difficulty walking, dizziness and vertigo; Denies: numbness in extremities, weakness in extremities, frequent falls, confusion, behavioral changes, Slurred speech present or difficulty communicating thoughts PFS ED PFSH: Medical History CVA (cerebral vascular accident) HTN (hypertension) Hyperlipidemia PAD (peripheral artery disease) TIA (transient ischemic attack) Family History Mother Diabetes Stroke Brother Diabetes Cancer Sister Diabetes Cancer Denies family history of CAD (coronary artery disease) Clotting disorder Dementia Chronic kidney disease (CKD) Suicide Anesthesia complication Bleeding disorder Lung disease Social History Smoking and tobacco status: former smoker Quit status (tobacco): has quit using tobacco Year quit tobacco: 06/11/21 Former quit date comment: [id number] years Second hand smoke exposure: Yes Smoking risk assessment/counseling performed?: Yes Alcohol intake: never Lives independently: Yes Household members: spouse Marital status: service: No Current occupational status: employed Pets and animals: Yes History of recent travel: No Current gender identity: Male Physical Exam Const: COMMON NORMALS: no acute distress GENERAL APPEARANCE: cooperative; not ill appearing and not frail appearing HENMT: COMMON NORMALS: normocephalic, atraumatic and Normal external nose present HEAD & SCALP: normocephalic and atraumatic FACE & SINUS: normal facial exam and face symmetric NOSE: Normal external nose present Eye: COMMON NORMALS: Equal, round and reactive pupils present and EOMs intact bilaterally PUPIL: Yes Equal, round and reactive pupils present Neck/C-Spine: GENERAL: Yes trachea midline Chest: CHEST: Yes Symmetrical chest wall rise Resp: COMMON NORMALS: normal respiratory effort, No retractions, No use of accessory muscles and clear to auscultation bilaterally AUSCULTATION: clear to auscultation bilaterally Cardio: COMMON NORMALS: regular rate and regular rhythm RATE: regular rate RHYTHM: regular rhythm GI: COMMON NORMALS: Normal to inspection, nondistended, normoactive bowel sounds present Extremity: COMMON NORMALS: no pedal edema Neuro: RIMA COMA SCALE: document GCS findings Rima coma scale eye opening: Spontaneous [place] coma scale verbal response: Orientated Rima coma scale motor response: Obey commands [place] coma scale total score: 15 CRANIAL NERVES: Yes CN normal except as noted COORDINATION/BALANCE: [id number] test normal and [id number]-[id number] test normal SPEECH: speech normal GAIT: Yes Normal gait present SENSORY EXAM: Yes extremities (intact) MOTOR EXAM: Pronator motor function not present and Normal motor muscle tone present throughout COORDINATION: [id number] test normal and hayf-ei-[id number] test normal Psych: COMMON NORMALS: speech normal SPEECH: Yes normal speech Skin: COMMON NORMALS: no rashes or lesions noted GENERAL SKIN EXAM: no rashes or lesions noted Course Vital Signs: Vital signs: Vital Signs Temperature 97.7 F 05/30/22 20:38 Pulse Rate 53 L 05/31/22 02:21 Respiratory Rate 16 05/31/22 02:21 Blood Pressure 138/79 05/31/22 02:21 Pulse Oximetry 94 05/31/22 02:21 Oxygen Delivery Me thod 05/30/22 22:48 MDM - Dizziness Medical Decision Making Symptoms are resolved in the ER. The patient has walked without a problem here. His CT of the head is negative. CTA shows no significant stenosis particularly of the posterior circulation. He has been hypertensive here, but this has improved as well. His laboratory is benign. He'll be allowed home. He'll be given meclizine for symptom control period further outpatient testing may be warranted. His ekg shows sinus rhythm with only a 1st degree av block. Lab Data 05/30/22 23:50 05/30/22 23:50 Radiology Impressions Chest X-Ray 05/30/22 IMPRESSION: 1. The lungs are hyperinflated, consistent with COPD. 2. No acute abnormality demonstrated. Head CT 05/30/22 IMPRESSION: 1. No acute intracranial abnormality demonstrated. 2. There is no interval change from the prior CT head examination of 01/07/2022. Head/Neck CTA 05/30/22 IMPRESSION: No evidence of acute intracranial hemorrhage, mass effect, or midline shift. IMPRESSION: 1. No large vessel occlusion or hemodynamically significant stenosis in the head or the neck. 2. Emphysema. 3. Indeterminate 7 mm nodule in the right upper lobe. A short-term CT of the chest within 6 -12 months is recommended for further evaluation according to Fleischner criteria. REFERENCES: NASCET CRITERIA. The degree of stenosis in the cervical segment of the internal carotid artery is based on NASCET criteria. Normal is no stenosis. Mild is less than 50% stenosis. Moderate is 50-69% stenosis. Severe is 70% to 99% stenosis. Total occlusion is no detectable patent lumen. Laboratory Results WBC 9.1 10^3/uL (4.0-10.0) 05/30/22 23:50 RBC 4.35 10^6/uL (4.1-5.3) 05/30/22 23:50 Hgb 14.0 g/dL (11.7-16.6) 05/30/22 23:50 Hct 42.4 % (42.0-52.0) 05/30/22 23:50 MCV 97.5 fl (80-94) H 05/30/22 23:50 MCH 32.2 pg (28.0-34.0) 05/30/22 23:50 MCHC 33.0 g/dL (30.0-36.0) 05/30/22 23:50 RDW 12.8 % (12.1-15.1) 05/30/22 23:50 Plt Count 313 10^3/cmm (130-400) 05/30/22 23:50 MPV 9.0 fL (7.4-10.4) 05/30/22 23:50 Neut % (Auto) 64.9 % 05/30/22 23:50 Lymph % (Auto) 24.3 % 05/30/22 23:50 [place] % (Auto) 9.1 % 05/30/22 23:50 Eos % (Auto) 0.9 % 05/30/22 23:50 Baso % (Auto) 0.3 % 05/30/22 23:50 Neut # (Auto) 5.93 10^3/uL (1.8-7.7) 05/30/22 23:50 Lymph # (Auto) 2.2 10^3/uL (0.8-4.8) 05/30/22 23:50 [place] # (Auto) 0.8 10^3/uL (0.2-0.9) 05/30/22 23:50 Eos # (Auto) 0.1 10^3/uL (0.0-0.8) 05/30/22 23:50 Baso # (Auto) 0.0 10^3/uL (0.0-0.1) 05/30/22 23:50 Nucleated RBC % (auto) 0 % 05/30/22 23:50 Nucleated RBCs # 0.0 /100WBC 05/30/22 23:50 Sodium 140 mmol/L (136-145) 05/30/22 23:50 Potassium 3.5 mmol/L (3.5-5.1) 05/30/22 23:50 Chloride 103 mmol/L (98-107) 05/30/22 23:50 Carbon Dioxide 29 mmol/L (22-29) 05/30/22 23:50 Anion Gap 11.5 (5-19) 05/30/22 23:50 BUN 19 mg/dL (8-23) 05/30/22 23:50 Creatinine 0.7 mg/dL (0.7-1.2) 05/30/22 23:50 GFR Calculation Not Reportable 05/30/22 23:50 Glucose 134 mg/dL (65-115) H 05/30/22 23:50 Calculated Osmolality 294 mOsm/kg (285-295) 05/30/22 23:50 Calcium 9.2 mg/dL (8.5-10.5) 05/30/22 23:50 Magnesium 2.1 mg/dL (1.7-2.3) 05/30/22 23:50 Total Bilirubin 0.4 mg/dL (0.15-1.2) 05/30/22 23:50 AST 18 U/L (0-40) 05/30/22 23:50 ALT 21 U/L (0-41) 05/30/22 23:50 Alkaline Phosphatase 54 U/L (40-130) 05/30/22 23:50 Creatine Kinase 67 U/L (39-308) 05/30/22 23:50 Total Protein 6.9 g/dL (6.6-8.7) 05/30/22 23:50 Albumin 4.1 g/dL (3.5-5.2) 05/30/22 23:50 Globulin 2.8 g/dL (1.3-4.6) 05/30/22 23:50 Urine Color Yellow (Yellow) 05/31/22 01:16 Urine Appearance Clear (CLEAR) 05/31/22 01:16 Urine pH 6 (5-7) 05/31/22 01:16 Ur Specific [place] 1.015 (1.005-1.030) 05/31/22 01:16 Urine Protein Neg (Negative) 05/31/22 01:16 Urine Glucose (UA) Norm (Normal) 05/31/22 01:16 Urine Ketones Negative (Negative) 05/31/22 01:16 Urine Blood Neg (Negative) 05/31/22 01:16 Urine Nitrate Negative (Negative) 05/31/22 01:16 Urine Bilirubin Neg (Negative) 05/31/22 01:16 Urine Urobilinogen 1 mg/dL (Negative) H 05/31/22 01:16 Ur Leukocyte Esterase Negative (Negative) 05/31/22 01:16 Discharge Plan Discharge Patient Disposition: Home Clinical Impression: Vertigo Condition: Stable Prescriptions: New meclizine 25 mg tablet 25 mg PO TID PRN (Reason: dizziness) Qty: 20 0RF No Action amlodipine 10 mg tablet 10 mg PO DAILY Qty: 90 2RF metoprolol tartrate 100 mg tablet 100 mg PO BID Qty: 180 2RF Stiolto Respimat 2.5-2.5 mcg/actuation mist 2 puff inhalation DAILY Qty: 4 3RF pravastatin 10 mg tablet 10 mg PO DAILY Qty: 30 5RF Plavix 75 mg tablet 75 mg PO DAILY Qty: 30 0RF Rx Instructions: MUST have follow-up for further refills Discharge Orders: Discharge ED (Routine); Ordered 05/31/22 Ordered By: Edward Sotelo Referrals: Loki Wells, [Primary Care Provider] - 1-3 days Patient Instructions: Vertigo (ED) Activity Restrictions/Additional Instructions: Return for worsening dizziness despite treatment, weakness, language problems, vision problems, any other concerning symptoms follow-up with your doctor the beginning of the week. 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
[2022-05-31 01:34] LABS: Urine Appearance Clear (CLEAR); Urine Color Yellow (Yellow); pH Urine 6 (5-7)
[2022-05-31 01:35] LABS: Bilirubin Urine Neg (Negative); Blood Urine Neg (Negative); Glucose Urine UA Norm (Normal); Ketones Urine Negative (Negative); Leukocyte Esterase Urine Negative (Negative); Nitrate Urine Negative (Negative); Protein Urine Neg (Negative); Specific Gravity, Urine 1.015 (1.005-1.030); Urobilinogen Urine 1 mg/dL (Negative)
--- NOTE | 2022-05-31 01:44 | PC.NURSE ---
patient ambulated approx 50 feet with steady gait.
[2022-05-31 02:21] VITALS: BP 138/79; PULSE 53; RESP 16; O2SAT 94
== END 2022-05-31 02:19 | disposition home or self-care (01) ==
PROVIDERS: Emergency Provider Emergency Medicine; PCP Electrodiagnostic Medicine
DX: R42 Dizziness and giddiness (principal); Z79.02 Long term (current) use of antithrombotics/antiplatelets; Z87.891 Personal history of nicotine dependence; Z86.73 Personal history of transient ischemic attack (TIA), and cerebral infarction without residual deficits; I10 Essential (primary) hypertension; E78.5 Hyperlipidemia, unspecified
CPT/HCPCS: 70450; 70496; 70498; 71045; 80053; 81003; 82550; 83735; 85025; 93005; 99285; J7040; Q9967

== ENCOUNTER 2022-06-11 06:00 | Outpatient (RCR) | payer MEDICARE, OTHER, SELFPAY | END 2022-07-11 23:59 | disposition home or self-care (01) | LOC: PULRHB 06:00 | PROVIDERS: PCP Electrodiagnostic Medicine; Visit Provider Internal Medicine Pulmonary Disease | DX: J44.9 Chronic obstructive pulmonary disease, unspecified (principal) | CPT/HCPCS: 94626 ==

== ENCOUNTER 2022-07-12 06:00 | Outpatient (RCR) | payer MEDICARE, OTHER, SELFPAY | END 2022-08-11 23:59 | disposition home or self-care (01) | LOC: PULRHB 06:00 | PROVIDERS: PCP Electrodiagnostic Medicine; Visit Provider Internal Medicine Pulmonary Disease | DX: J44.9 Chronic obstructive pulmonary disease, unspecified (principal) | CPT/HCPCS: 94626 ==

== ENCOUNTER 2022-08-12 06:00 | Outpatient (RCR) | payer MEDICARE, OTHER, SELFPAY | END 2022-09-08 23:59 | disposition home or self-care (01) | LOC: PULRHB 06:00 | PROVIDERS: PCP Electrodiagnostic Medicine; Visit Provider Internal Medicine Pulmonary Disease | DX: J44.9 Chronic obstructive pulmonary disease, unspecified (principal) | CPT/HCPCS: 94626 ==

== ENCOUNTER 2022-09-09 06:00 | Outpatient (RCR) | payer MEDICARE, OTHER, SELFPAY | END 2022-10-09 23:59 | disposition home or self-care (01) | LOC: PULRHB 06:00 | PROVIDERS: PCP Electrodiagnostic Medicine; Visit Provider Internal Medicine Pulmonary Disease | DX: J44.9 Chronic obstructive pulmonary disease, unspecified (principal) | CPT/HCPCS: 94625; 94626 ==

== ENCOUNTER 2022-10-10 06:00 | Outpatient (RCR) | payer MEDICARE, OTHER, SELFPAY | END 2022-11-08 23:59 | disposition home or self-care (01) | LOC: PULRHB 06:00 | PROVIDERS: PCP Electrodiagnostic Medicine; Visit Provider Internal Medicine Pulmonary Disease | DX: J44.9 Chronic obstructive pulmonary disease, unspecified (principal) | CPT/HCPCS: 94625 ==

== ENCOUNTER → 2022-10-12 08:11 | Outpatient (BNVA) | payer MEDICARE, OTHER, SELFPAY | PROVIDERS: PCP Electrodiagnostic Medicine; Visit Provider Internal Medicine Pulmonary Disease | DX: J44.9 Chronic obstructive pulmonary disease, unspecified (principal); R06.00 Dyspnea, unspecified; I10 Essential (primary) hypertension; R91.8 Other nonspecific abnormal finding of lung field; Z87.891 Personal history of nicotine dependence; R60.0 Localized edema; G47.33 Obstructive sleep apnea (adult) (pediatric) | CPT/HCPCS: 99214 ==

== ENCOUNTER 2022-10-19 06:04 | Outpatient (CLI) | payer MEDICARE, OTHER, SELFPAY ==
--- NOTE | 2022-10-19 06:17 | USCV_ITS ---
Lyndsay Perea Age: 72 Gender: M : 1950 Exam Date: 10/19/2022 06:20 Ordering Phys: Loki Wells (ER USE) Technologist: [place] [facility] [place]: new chf BP: 125 / 75 HR: 61 Rhythm: Sinus Technical Quality: Adequate MEASUREMENTS (Male / Female) Normal Values 2D ECHO LV Ejection Fraction MOD 2C 73.3 % LV Ejection Fraction 2C AL 71.8 % DOPPLER AV Peak Velocity 108.0 cm/s LVOT Peak Velocity 65.0 cm/s MV Area PHT 2.7 cm squared Mitral E to A Ratio 1.2 MV E' Velocity 32.5 cm/s Mitral E to MV E' Ratio 6.8 Mitral E to LV E' Lateral Ratio 6.5 Mitral E to LV E' Septal Ratio 7.1 TR Peak Velocity 214.0 cm/s TR Peak Gradient 18.3 mmHg TV Peak E Velocity 62.0 cm/s Right Atrial Pressure 3.0 mmHg Pulmonary Artery Systolic Pressu 21.3 mmHg RV Acceleration Time 0.1 s FINDINGS Left Ventricle Normal left ventricular size and systolic function, EF 66 %. Mild left ventricular hypertrophy. No regional wall motion abnormalities. Right Ventricle The right ventricle is normal in size and function. Right Atrium The right atrium is normal in size. Left Atrium The left atrium is normal in size. Mitral Valve No gross abnormalities noted Aortic Valve Thickened aortic valve. Tricuspid Valve No gross abnormalities noted Pulmonic Valve Pulmonic valve not well visualized. Pericardium No pericardial effusion. Aorta Normal ascending aorta dimension. IVC The inferior vena cava appears normal. CONCLUSIONS Normal left ventricular size and systolic function, EF 66 %. Mild left ventricular hypertrophy. No regional wall motion abnormalities. Thickened aortic valve. No significant regurgitant or stenotic lesions Normal cardiac chamber sizes Comparison with the previous study from 07/23/2020 is difficult because of the difference in the technical quality. Dr Meg Lynch MD [facility] (Electronically Signed) Final Date: 19 October 2022 16:56 S
== END 2022-10-19 06:05 | disposition home or self-care (01) ==
LOC: RAD 06:06
PROVIDERS: PCP Electrodiagnostic Medicine; Visit Provider Electrodiagnostic Medicine
DX: I50.9 Heart failure, unspecified (principal); I51.7 Cardiomegaly; I35.8 Other nonrheumatic aortic valve disorders
CPT/HCPCS: 93306

== ENCOUNTER → 2022-10-29 11:46 | Outpatient (BNVA) | payer MEDICARE, OTHER, SELFPAY | PROVIDERS: PCP Electrodiagnostic Medicine; Visit Provider Internal Medicine Cardiovascular Disease | DX: R07.9 Chest pain, unspecified (principal); I10 Essential (primary) hypertension; E78.5 Hyperlipidemia, unspecified; I73.9 Peripheral vascular disease, unspecified; Z86.73 Personal history of transient ischemic attack (TIA), and cerebral infarction without residual deficits; Z87.891 Personal history of nicotine dependence | CPT/HCPCS: 99213 ==

== ENCOUNTER 2022-11-12 19:25 | Emergency (ER) | payer MEDICARE, OTHER, SELFPAY ==
[2022-11-12 19:32] VITALS: BP 166/95; PULSE 72; RESP 18; TEMP 36.3; O2SAT 98; BMI 24.4
[2022-11-12 19:40] VITALS: BP 161/91; PULSE 80; RESP 24; O2SAT 99
--- NOTE | 2022-11-12 19:59 | XRR_ITS ---
PROCEDURE INFORMATION: Exam: XR Chest Exam date and time: 11/12/2022 7:45 PM Age: 72 years old Clinical indication: Patient HX: Sent from urgent care for possible TIA; Additional info: Fatigue TECHNIQUE: Imaging protocol: Radiologic exam of the chest. Views: 1 view. COMPARISON: CR XR chest 2V* [id number] 07/30/2022 10:56 AM FINDINGS: Lungs: Changes of emphysema are stable compared with 07/30/2022. No focal infiltrate is identified. Pleural spaces: Unremarkable. No pleural effusion. No pneumothorax. Heart/Mediastinum: Heart is within normal limits of size. Bones/joints: Unremarkable. XR/XR chest 1V portable [id number] IMPRESSION: 1. Pulmonary emphysema. 2. No acute infiltrate.
--- NOTE | 2022-11-12 19:59 | ECG_ITS ---
[facility] Test Date: 2022-11-12 Pat Name: Lyndsay Perea Department: Room: Gender: Male Delivery Architect: : 1950 Requested By: Joel Medrano Order Number: [id number] Sarah MD: Meg Lynch M.D. Measurements Intervals [place] Rate: 54 P: 78 NM: 221 QRS: 55 QRSD: 92 T: 59 QT: 404 QTc: 383 Interpretive Statements SINUS BRADYCARDIA WITH FIRST DEGREE AV BLOCK Compared to ECG 05/30/2022 20:43:08 Sinus rhythm no longer present ST (T wave) deviation no longer present Electronically Signed On 11-12-2022 21:24:05 CDT by Meg Lynch M.D. [id number]
--- NOTE | 2022-11-12 19:59 | CTR_ITS ---
PROCEDURE INFORMATION: Exam: CT Head Without Contrast Exam date and time: 11/12/2022 8:16 PM Age: 72 years old Clinical indication: Stroke-like symptoms; Altered mental status/memory loss; Additional info: Symptoms of acute stroke TECHNIQUE: Imaging protocol: Computed tomography of the head without contrast. Radiation optimization: All CT scans at this facility use at least one of these dose optimization techniques: automated exposure control; mA and/or kV adjustment per patient size (includes targeted exams where dose is matched to clinical indication); or iterative reconstruction. Other technique: STROKE PROTOCOL was implemented. REPORTING DATA: Count of CT and Cardiac NM exams in prior 12 months: This patient has received 4 known CTs and 0 known cardiac nuclear medicine studies in the 12 months prior to the current study. COMPARISON: CT head wo con* [id number] 05/31/2022 12:49 AM RADIATION DOSE METRICS: Total DLP (mGy-cm): 1208 FINDINGS: Brain: There is mild cortical atrophy. Low-density changes in the white matter are consistent with nonspecific small vessel chronic ischemic change. There is no intracranial mass, hemorrhage or edema. Cerebral ventricles: No ventriculomegaly. Paranasal sinuses: Visualized sinuses are unremarkable. No fluid levels. Mastoid air cells: Visualized mastoid air cells are well aerated. Bones/joints: Unremarkable. No acute fracture. Soft tissues: Unremarkable. CT/CT head thrombolytic [id number] IMPRESSION: No acute intracranial finding. ASSESSMENT: ASPECTS ([place] Stroke Program Early CT Score) is 10.
--- NOTE | 2022-11-12 20:03 | W.ED.WEAKNES ---
HPI - Weakness General: Chief complaint: Weakness Stated complaint: Sent from [facility] for poss TIA Time Seen by Provider: 11/12/22 19:44 Source: patient and family Mode of arrival: ambulatory Limitations: no limitations History of Present Illness: This patient made his way to the emergency department from [facility]. He related to the staff there that he is seem to have some tongue twisting or thick tongue in speaking earlier today. On interview patient states that yesterday he seemed to think that he was having a bit of difficulty with some words at some time. He states that he awoke after somewhat fitful sleep and stated the symptoms still seem to be present in the seem to think that at times his left leg seem to be weak. He denied any associated headache or other neurologic symptoms. He states he felt fatigued throughout the day. He states that he thought he might have sore throat and was seen at the clinic for that reason. His who is with him states that she noticed no difficulty with his speech or change in his speech today. She states that he did act like he was tired today but that is not particularly unusual for him. He apparently has had what has been called long COVID syndrome since being infected with COVID last year and has had intermittent fatigue and decreased energy level since that time. There was a question whether he had a TIA over a year ago but was left with no deficits. He states he has been faithful to his prescribed medication. He states that he has had more shortness of breath pulmonary issues since his COVID infection and he wears oxygen at night as well as goes to pulmonary rehab. Denies any fevers or cough. Denies any exposure to infectious disease. He states he has been urinating and having normal bowel movements today. Associated symptoms: Denies chest pain, chills, confusion, dysuria, fever(s), headache(s), nausea or vomiting Review of Systems Const: Reports: fatigue; Denies: fever(s) or chills Eyes: Denies: change in vision or blurry vision ENMT: Denies: odynophagia, hoarseness, mouth pain, swelling of lips/tongue, nasal discharge or nasal congestion Card: Denies: chest pain, palpitations, irregular heart rhythm or edema Resp: Denies: productive cough, non-productive cough, wheezing or stridor GI: Denies: nausea, vomiting or diarrhea : Denies: flank pain, difficulty urinating, dysuria or urinary frequency Musc: Denies: neck pain, back pain, extremity pain or extremity swelling Skin/Breast: Denies: rash Neuro: Reports: weakness in extremities and Slurred speech present; Denies: headache(s), numbness in extremities, lack of coordination, difficulty walking, confusion or difficulty communicating thoughts Psych: Denies: anxiety or depression PFSH ED PFSH: Medical History CVA (cerebral vascular accident) HTN (hypertension) Hyperlipidemia PAD (peripheral artery disease) TIA (transient ischemic attack) Family History Mother Diabetes Stroke Brother Diabetes Cancer Sister Diabetes Cancer Denies family history of CAD (coronary artery disease) Clotting disorder Dementia Chronic kidney disease (CKD) Suicide Anesthesia complication Bleeding disorder Lung disease Social History Smoking and tobacco status: former smoker Quit status (tobacco): has quit using tobacco Year quit tobacco: 06/11/21 Former quit date comment: [id number] years Second hand smoke exposure: Yes Smoking risk assessment/counseling performed?: Yes Alcohol intake: never Substance/Drug Use: never Lives independently: Yes Household members: spouse Marital status: service: No Current occupational status: employed Pets and animals: Yes Do you think of yourself as: Straight/Heterosexual Current gender identity: Male Physical Exam Narrative: EXAM NARRATIVE: The patient makes good eye contact. His speech is goal-directed and fluent. Const: COMMON NORMALS: no acute distress, average body habitus and patient oriented x3 GENERAL APPEARANCE: cooperative and comfortable ORIENTATION/CONSCIOUSNESS: Yes awake, Yes oriented to person and Yes oriented to place HENMT: COMMON NORMALS: normocephalic, Normal nasal mucous membranes and turbinates present, moist oral mucous membranes and oropharynx normal HEAD & SCALP: normocephalic FACE & SINUS: normal facial exam and face symmetric NOSE: Normal nasal mucous membranes and turbinates present Eye: COMMON NORMALS: Equal, round and reactive pupils present, EOMs intact bilaterally and conjunctivae normal CONJUNCTIVA: Yes conjunctivae normal PUPIL: Yes Equal, round and reactive pupils present Neck/C-Spine: COMMON NORMALS: full ROM, no lymphadenopathy, no JVD and No carotid bruits Chest: COMMONS NORMALS: normal inspection of the chest Resp: COMMON NORMALS: normal respiratory effort, No retractions, No use of accessory muscles and clear to auscultation bilaterally EFFORT & INSPECTION: Yes able to speak in complete sentences AUSCULTATION: clear to auscultation bilaterally Cardio: COMMON NORMALS: no JVD, regular rate, regular rhythm, No murmurs present (Cardio) and Peripheral pulses 2+ throughout RATE: regular rate RHYTHM: regular rhythm PERIPHERAL PULSES: Peripheral pulses 2+ throughout GI: COMMON NORMALS: Normal to inspection, nondistended, normoactive bowel sounds present, Soft to palpation and non-tender PALPATION: Yes Soft to palpation : COMMON NORMALS: Yes no CVA tenderness BLADDER/KIDNEY EXAM: Yes no CVA tenderness Back/Pelvis: COMMON NORMALS: no CVA tenderness, thoracic and lumbar spine normal to inspection, no thoracic nor lumbar tenderness, thoraco-lumbar ROM normal and straight leg raise negative bilaterally Extremity: COMMON NORMALS: normal to inspection, full ROM, capillary refill normal, no calf tenderness and no pedal edema Neuro: COMMON NORMALS: patient oriented x3, moves all extremities, no focal motor deficits and no sensory deficits noted SENSORIUM/ORIENTATION: Yes oriented to person and Yes oriented to place CRANIAL NERVES: Yes CN normal except as noted COORDINATION/BALANCE: [id number]-[id number] test normal and pivr-la-[id number] test normal SPEECH: speech normal MOTOR EXAM: 5/5 motor strength present throughout COORDINATION: lhlpfw-ik-blyw test normal and etwk-hm-[id number] test normal OTHER: NIH 0 at this time Psych: COMMON NORMALS: mental status grossly normal Skin: COMMON NORMALS: no rashes or lesions noted, no wounds and turgor normal GENERAL SKIN EXAM: no rashes or lesions noted and turgor normal Course Reevaluation(s): Reevaluation #1: Patient remained stable. He has no demonstrable alteration in his speech articulation and enunciation word forming etc. at this time. No focal weakness or sensory loss noted on [id number] examination. I discussed current findings and their implications and limitations. No evidence of obvious hemorrhagic and/or ischemic changes on noncontrasted CT. All his laboratories are also reassuring at this time.We discussed that he is not on aspirin for secondary stroke prevention and he states that he had a history of bleeding ulcers and cannot take aspirin.He states that he previously took something else but he currently does not take any antiplatelets or other DOACs etc. Time: 22:01 Vital Signs: Vital signs: Vital Signs Temperature 97.4 F L 11/12/22 19:32 Pulse Rate 57 L 11/12/22 20:10 Respiratory Rate 28 H 11/12/22 20:10 Blood Pressure 134/77 11/12/22 20:10 Pulse Oximetry 96 11/12/22 20:10 Oxygen Delivery Me thod Room Air 11/12/22 19:32 MDM - Weakness Medical Decision Making Gentleman made his way to our emergency department after being referred here from [facility] [place]. The patient was there because he developed some sore throat symptoms earlier today. He wound up making his way here after some additional history taking revealed that he may or may not had some thick tongue symptoms and felt like his articulation was not normal starting last night and again today. There was some question whether he had some left leg weakness or gait issues today as well. His clinical examination here is reassuring. His NIH was 0. However a ER work-up was undertaken to ensure that there was no acute reversible issues at play. Imaging was reassuring and other laboratories were also reassuring. He was normotensive and on repeat examination had no evidence of ongoing neurologic deficits. His oropharynx did not reveal any erythema, mass effect etc. His strep screen from [facility] was negative. Clinical exam suggest possible postnasal drainage or nonbacterial pharyngitis. Also his nocturnal oxygen may be having an effect on sore throat symptoms as well given its drying nature. He had a recent work-up to include CTA, carotid studies, echocardiogram within the last 6 months all which were reassuring. He did take a statin already but did not take any antiplatelet agents. He cited a bleeding ulcer history as a reason he does not take aspirin. We recommended contacting his primary care doctor in the morning to discuss additional preventative agent such as tick lead etc. and determine whether he was a candidate for the such therapy. At this point he does not have any evidence of acute stroke or other neurologic deficits to require acute intervention. We discussed current findings their implications and limitations and the need for close follow-up and return precautions with both he and his spouse. Is not clear how his prolonged COVID condition plays into his current presentation as well with fatigue and other symptoms. Medical Records I reviewed the patient's medical records. Normal CTA of head and neck and normal echocardiogram May 2022 Lab Data I reviewed the patient's lab results. 11/12/22 20:00 11/12/22 20:00 Radiology Impressions Chest X-Ray 11/12/22 19:59 IMPRESSION: 1. Pulmonary emphysema. 2. No acute infiltrate. Head CT 11/12/22 19:59 IMPRESSION: No acute intracranial finding. ASSESSMENT: ASPECTS ([place] Stroke Program Early CT Score) is 10. Laboratory Results WBC 11.5 10^3/uL (4.0-10.0) H 11/12/22 20:00 RBC 4.59 10^6/uL (4.1-5.3) 11/12/22 20:00 Hgb 14.5 g/dL (11.7-16.6) 11/12/22 20:00 Hct 44.2 % (42.0-52.0) 11/12/22 20:00 MCV 96.3 fl (80-94) H 11/12/22 20:00 MCH 31.6 pg (28.0-34.0) 11/12/22 20:00 MCHC 32.8 g/dL (30.0-36.0) 11/12/22 20:00 RDW 12.9 % (12.1-15.1) 11/12/22 20:00 Plt Count 253 10^3/cmm (130-400) 11/12/22 20:00 MPV 9.5 fL (7.4-10.4) 11/12/22 20:00 Neut % (Auto) 72.6 % 11/12/22 20:00 Lymph % (Auto) 17.1 % 11/12/22 20:00 Terry % (Auto) 7.9 % 11/12/22 20:00 Eos % (Auto) 1.8 % 11/12/22 20:00 Baso % (Auto) 0.3 % 11/12/22 20:00 Neut # (Auto) 8.38 10^3/uL (1.8-7.7) H 11/12/22 20:00 Lymph # (Auto) 2.0 10^3/uL (0.8-4.8) 11/12/22 20:00 Terry # (Auto) 0.9 10^3/uL (0.2-0.9) 11/12/22 20:00 Eos # (Auto) 0.2 10^3/uL (0.0-0.8) 11/12/22 20:00 Baso # (Auto) 0.0 10^3/uL (0.0-0.1) 11/12/22 20:00 Nucleated RBC % (auto) 0 % 11/12/22 20:00 Nucleated RBCs # 0.0 /100WBC 11/12/22 20:00 ESR 4 mm/hr (0-10) 11/12/22 20:00 Sodium 141 mmol/L (136-145) 11/12/22 20:00 Potassium 4.2 mmol/L (3.5-5.1) 11/12/22 20:00 Chloride 104 mmol/L (98-107) 11/12/22 20:00 Carbon Dioxide 30 mmol/L (22-29) H 11/12/22 20:00 Anion Gap 11.2 (5-19) 11/12/22 20:00 BUN 18 mg/dL (8-23) 11/12/22 20:00 Creatinine 0.8 mg/dL (0.7-1.2) 11/12/22 20:00 GFR Calculation Not Reportable 11/12/22 20:00 Glucose 107 mg/dL (65-115) 11/12/22 20:00 POC Glucose 101 mg/dL (70-110) 11/12/22 19:52 Calculated Osmolality 294 mOsm/kg (285-295) 11/12/22 20:00 Calcium 9.5 mg/dL (8.5-10.5) 11/12/22 20:00 Total Bilirubin 0.6 mg/dL (0.15-1.2) 11/12/22 20:00 AST 20 U/L (0-40) 11/12/22 20:00 ALT 21 U/L (0-41) 11/12/22 20:00 Alkaline Phosphatase 66 U/L (40-130) 11/12/22 20:00 Troponin T Baseline 12 ng/L (0-15) 11/12/22 20:00 Total Protein 6.9 g/dL (6.6-8.7) 11/12/22 20:00 Albumin 4.4 g/dL (3.5-5.2) 11/12/22 20:00 Globulin 2.5 g/dL (1.3-4.6) 11/12/22 20:00 EKG Data EKG 1: Interpretation: Contemporaneous review of resting EKG reveals ventricular rate of 54 bpm. Prolonged TN interval, normal QRS duration, normal corrected QT interval. Normal axis. Consistent with first-degree AV block, sinus bradycardia, no acute ST-T wave changes. Discharge Plan Discharge Patient Disposition: Home Clinical Impression: TIA (transient ischemic attack), Pharyngitis, Long COVID Condition: Stable Prescriptions: No Action metoprolol tartrate 100 mg tablet 100 mg PO BID Qty: 180 2RF albuterol sulfate 90 mcg/actuation HFA aerosol inhaler 2 puff inhalation Q6H PRN vitamin B complex [B Complex-Vitamin B12] Tablet 1 tab PO DAILY cholecalciferol (vitamin D3) 125 mcg (5,000 unit) capsule 125 mcg PO DAILY atorvastatin 40 mg tablet 40 mg PO DAILY prednisone 10 mg tablet 10 mg PO DAILY hydrochlorothiazide 12.5 mg capsule 12.5 mg PO DAILY Bevespi Aerosphere 9-4.8 mcg HFA aerosol inhaler 2 puff inhalation BID Qty: 10.7 6RF meclizine 25 mg tablet 25 mg PO TID PRN (Reason: dizziness) Qty: 20 0RF Discharge Orders: Discharge ED (Routine); Ordered 11/12/22 Ordered By: Joel Medrano Referrals: Loki Wells, [Primary Care Provider] - 1-3 days (Follow-up regarding ER visit and consider discussion for stroke prevention) Discharge Diet: Usual diet Discharge Activity: Increase activity as tolerated Patient Instructions: Opioid Safety, Pain Management Activity Restrictions/Additional Instructions: As we discussed while you are in the emergency department your CT scan and other studies this evening did not reveal any evidence of a acute stroke or other serious condition to cause your symptoms. We do recommend that you contact your physician regarding whether you have an alternative to aspirin to take for stroke prevention. We recommend taking all your other usual medications and if you develop any focal weakness, headache, other concerning symptoms return to the emergency department immediately for reevaluation. 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
[2022-11-12 20:07] LABS: Glucose Point of Care 101 mg/dL (70-110)
[2022-11-12 20:10] VITALS: BP 134/77; PULSE 57; RESP 28; O2SAT 96
[2022-11-12 20:15] LABS: Basophils % 0.3 %; Eosinophils # 0.2 10^3/uL (0.0-0.8); Eosinophils % 1.8 %; Hematocrit 44.2 % (42.0-52.0); Hemoglobin 14.5 g/dL (11.7-16.6); Lymphocytes % 17.1 %; Mean Corpuscular HGB Conc 32.8 g/dL (30.0-36.0); Mean Corpuscular Hemoglobin 31.6 pg (28.0-34.0); Mean Corpuscular Volume 96.3 fl (80-94); Mean Platelet Volume 9.5 fL (7.4-10.4); Monocytes # 0.9 10^3/uL (0.2-0.9); Monocytes % 7.9 %; Neutrophils # 8.38 10^3/uL (1.8-7.7); Neutrophils % 72.6 %; Nucleated Red Blood Cells % 0 %; Platelet Count 253 10^3/cmm (130-400); Red Blood Count 4.59 10^6/uL (4.1-5.3); Red Cell Distribution Width 12.9 % (12.1-15.1); White Blood Count 11.5 10^3/uL (4.0-10.0)
[2022-11-12 20:20] LABS: Erythrocyte Sedimentation Rate 4 mm/hr (0-10)
[2022-11-12 20:30] VITALS: BP 134/77; PULSE 58; RESP 23; O2SAT 97
[2022-11-12 20:37] LABS: Troponin(5th) Baseline 12 ng/L (0-15)
[2022-11-12 20:38] LABS: Alanine Aminotransferase 21 U/L (0-41); Albumin Level 4.4 g/dL (3.5-5.2); Alkaline Phosphatase 66 U/L (40-130); Anion Gap 11.2 (5-19); Aspartate Amino Transferase 20 U/L (0-40); Blood Urea Nitrogen 18 mg/dL (8-23); Calcium 9.5 mg/dL (8.5-10.5); Carbon Dioxide 30 mmol/L (22-29); Chloride 104 mmol/L (98-107); Creatinine Clr Calc Pharmacy 94.8975; Globulin 2.5 g/dL (1.3-4.6); Glucose 107 mg/dL (65-115); Osmolality Calculated 294 mOsm/kg (285-295); Potassium 4.2 mmol/L (3.5-5.1); Sodium 141 mmol/L (136-145); Total Bilirubin 0.6 mg/dL (0.15-1.2); Total Protein 6.9 g/dL (6.6-8.7)
[2022-11-12 21:30] VITALS: BP 133/72; PULSE 54; RESP 22; O2SAT 95
--- NOTE | 2022-11-12 22:08 | ECG_ITS ---
[facility] Test Date: 2022-11-12 Pat Name: Lyndsay Perea Department: Room: Gender: Male Police Pilot: : 1950 Requested By: Joel Medrano Order Number: [id number] Sarah MD: Darwin Carrera M.D. Measurements Intervals [place] Rate: 54 P: 0 ID: 0 QRS: 55 QRSD: 89 T: 62 QT: 413 QTc: 394 Interpretive Statements SUPRAVENTRICULAR BRADYCARDIA Compared to ECG 11/12/2022 19:58:18 Sinus bradycardia no longer present First degree AV block no longer present Electronically Signed On 11-13-2022 11:00:49 CDT by Darwin Carrera M.D. [id number]
[2022-11-12 22:25] VITALS: BP 153/85; PULSE 53; RESP 22; O2SAT 93
== END 2022-11-12 22:27 | disposition home or self-care (01) ==
PROVIDERS: Emergency Provider Emergency Medicine; PCP Electrodiagnostic Medicine
DX: G45.9 Transient cerebral ischemic attack, unspecified (principal); J02.9 Acute pharyngitis, unspecified; U09.9 Post COVID-19 condition, unspecified; Z86.73 Personal history of transient ischemic attack (TIA), and cerebral infarction without residual deficits; I10 Essential (primary) hypertension; E78.5 Hyperlipidemia, unspecified; Z87.891 Personal history of nicotine dependence
CPT/HCPCS: 36416; 70450; 71045; 80053; 82962; 84484; 85025; 85651; 93005; 99285

== ENCOUNTER 2023-04-06 14:16 | Outpatient (CLI) | payer MEDICARE, OTHER, SELFPAY ==
--- NOTE | 2023-04-06 14:30 | CT_ITS ---
WS: [id number] CT chest wo con [id number] HISTORY: annual follow up TECHNIQUE: Axial imaging performed through the thorax. Coronal and sagittal reformats are submitted. All CT scans at [facility] use at least one of these dose optimization techniques: automated exposure control; mA and/or kV adjustment per patient size (includes targeted exams where dose is mat ched to clinical indication); or iterative reconstruction. CONTRAST: None DLP: 333.93 mGy.cm COMPARISON: 05/05/2022, 07/23/2020 Lungs and central airway: Mild centrilobular emphysema. Hyperexpanded lungs with a few small subcenti meter and noncalcified pulmonary nodules. No new nodules or increasing size of any nodules. No mass o r pneumonia. Mild thin linear atelectasis and dependent changes at the lung bases. Pleura: Normal. No pleural effusion. Heart and pericardium: Normal size heart with no pericardial effusion. Mediastinum and lucy: No mediastinum or hilar adenopathy. Vessels: Mild atherosclerosis aorta. Normal sized pulmonary artery. Chest wall and lower neck: No soft tissue masses. Upper abdomen: Surgical clips at the GE junction. No adenopathy. 3.3 cm cyst upper pole RIGHT kidney. No interval change. Osseous structures: No destructive process. IMPRESSION: 1. Stable subcentimeter noncalcified pulmonary nodules in basilar atelectasis since 07/23/2020. No pne umonia or increasing size of any nodules. 2. No mediastinal or hilar adenopathy. 3. Mild atherosclerosis aorta.
== END 2023-04-06 14:17 | disposition home or self-care (01) ==
LOC: RAD 14:18
PROVIDERS: PCP Electrodiagnostic Medicine; Visit Provider Internal Medicine Pulmonary Disease
DX: R91.8 Other nonspecific abnormal finding of lung field (principal); I70.0 Atherosclerosis of aorta
CPT/HCPCS: 71250

== ENCOUNTER 2023-04-07 09:26 | Outpatient (CLI) | payer MEDICARE, OTHER, SELFPAY ==
--- NOTE | 2023-04-07 09:32 | USCV_ITS ---
Lyndsay Perea Age: 72 Gender: M : 1950 Exam Date: 04/07/2023 10:00 Ordering Phys: Loki Wells DO Technologist: Mey Wynne [employer] Annealer Exam Location: [facility] Indication: BLE SWELLING AND NUMBNESS RIGHT LEFT Brachial 134.00 mmHg Brachial 126.00 mmHg Pressure (mmHg) Waveform Pressure (mmHg) Waveform 140.00 TAXI DRIVER 163.00 140.00 DPA 141.00 1.04 Ankle/Brachial Index 1.22 173.00 Pre-Exercise Toe Pressure 146.00 1.29 Pre-Exercise Toe/Brachial Index 1.09 FINDINGS Resting ELISEO 1.04 on the right side and 1.22 on the left side Resting TBI of 1.29 and one-point on the right and 1.09 on the left CONCLUSIONS Normal resting ABIs and TBIs bilaterally No significant arterial obstruction, based on the above findings Dr Meg Lynch MD FAC (Electronically Signed) Final Date: 08 April 2023 09:19 S
== END 2023-04-07 09:27 | disposition home or self-care (01) ==
PROVIDERS: PCP Electrodiagnostic Medicine; Visit Provider Electrodiagnostic Medicine
DX: I73.9 Peripheral vascular disease, unspecified (principal); M79.89 Other specified soft tissue disorders; R20.0 Anesthesia of skin
CPT/HCPCS: 93922

== ENCOUNTER → 2023-04-15 09:49 | Outpatient (BNVA) | payer MEDICARE, OTHER, SELFPAY | PROVIDERS: PCP Electrodiagnostic Medicine; Visit Provider Internal Medicine Pulmonary Disease | DX: J44.9 Chronic obstructive pulmonary disease, unspecified (principal); R91.8 Other nonspecific abnormal finding of lung field; Z87.891 Personal history of nicotine dependence; G47.33 Obstructive sleep apnea (adult) (pediatric); M79.89 Other specified soft tissue disorders | CPT/HCPCS: 99214 ==

== ENCOUNTER → 2023-04-22 11:39 | Outpatient (BNVA) | payer MEDICARE, OTHER, SELFPAY | PROVIDERS: PCP Electrodiagnostic Medicine; Visit Provider Internal Medicine Cardiovascular Disease | DX: R07.89 Other chest pain (principal); I10 Essential (primary) hypertension; E78.5 Hyperlipidemia, unspecified; I73.9 Peripheral vascular disease, unspecified; R91.8 Other nonspecific abnormal finding of lung field; Z86.73 Personal history of transient ischemic attack (TIA), and cerebral infarction without residual deficits; Z87.891 Personal history of nicotine dependence | CPT/HCPCS: 99213 ==

== ENCOUNTER → 2023-04-28 13:46 | Outpatient (BNVA) | payer MEDICARE, OTHER, SELFPAY | PROVIDERS: PCP Electrodiagnostic Medicine; Visit Provider Dermatology | DX: D48.5 Neoplasm of uncertain behavior of skin (principal); L82.1 Other seborrheic keratosis; D18.01 Hemangioma of skin and subcutaneous tissue; L81.4 Other melanin hyperpigmentation; L57.0 Actinic keratosis | CPT/HCPCS: 11102; 17000; 99203 ==

== ENCOUNTER → 2023-06-22 14:30 | Outpatient (BNVA) | payer MEDICARE, OTHER, SELFPAY | PROVIDERS: PCP Electrodiagnostic Medicine; Visit Provider Dermatology | DX: L81.4 Other melanin hyperpigmentation (principal); L57.0 Actinic keratosis; C44.1221 Squamous cell carcinoma of skin of right upper eyelid, including canthus; L82.1 Other seborrheic keratosis | CPT/HCPCS: 17000; 99213 ==

== ENCOUNTER → 2023-11-04 11:50 | Outpatient (BNVA) | payer MEDICARE, OTHER, SELFPAY | PROVIDERS: PCP Electrodiagnostic Medicine; Visit Provider Internal Medicine Cardiovascular Disease | DX: I10 Essential (primary) hypertension (principal); E78.5 Hyperlipidemia, unspecified; R06.00 Dyspnea, unspecified; I73.9 Peripheral vascular disease, unspecified; Z87.891 Personal history of nicotine dependence; Z86.73 Personal history of transient ischemic attack (TIA), and cerebral infarction without residual deficits | CPT/HCPCS: 99213 ==

== ENCOUNTER → 2024-02-07 10:16 | Outpatient (BNVA) | payer MEDICARE, OTHER, SELFPAY | PROVIDERS: PCP Electrodiagnostic Medicine; Visit Provider Nurse Practitioner Family | DX: D48.5 Neoplasm of uncertain behavior of skin (principal); L57.0 Actinic keratosis; L81.4 Other melanin hyperpigmentation; L82.1 Other seborrheic keratosis; D69.2 Other nonthrombocytopenic purpura; D18.01 Hemangioma of skin and subcutaneous tissue | CPT/HCPCS: 11102; 17000; 99213 ==

== ENCOUNTER → 2024-05-08 09:50 | Outpatient (BNVA) | payer MEDICARE, OTHER, SELFPAY | PROVIDERS: PCP Electrodiagnostic Medicine; Visit Provider Nurse Practitioner Family | DX: I10 Essential (primary) hypertension (principal); E78.5 Hyperlipidemia, unspecified; I73.9 Peripheral vascular disease, unspecified; Z87.891 Personal history of nicotine dependence | CPT/HCPCS: 99214 ==

== ENCOUNTER 2024-05-16 07:39 | Outpatient (CLI) | payer MEDICARE, OTHER, SELFPAY ==
[2024-05-16] MEDS: albuterol 2.5 mg/3 mL Neb INHALATION (07:53)
--- NOTE | 2024-05-16 08:38 | CT_ITS ---
WS: [id number] CT chest wo con [id number] HISTORY: ACUTE CHRONIC RESPIRATORY FAILURE TECHNIQUE: Axial imaging performed through the thorax. Coronal and sagittal reformats are submitted. All CT scans at [facility] use at least one of these dose optimization techniques: automated exposure control; mA and/or kV adjustment per patient size (includes targeted exams where dose is mat ched to clinical indication); or iterative reconstruction. CONTRAST: None DLP: 330.45 mGy.cm COMPARISON: 04/06/2023, 05/05/2022, 07/23/2020 Lungs and central airway: Moderate emphysema with pulmonary hyperexpansion. Ovoid noncalcified nodule RIGHT middle lobe is reidentified and not significantly changed in size. Consolidations and nodulari ties at the lung bases are reidentified. One nodule measures 3.7 cm. This nodule has been present on prior studies and very minimally more prominent. Bilateral lower lobe bronchiectasis. Thin areas of s carring and atelectasis. Pleura: Normal. No pleural effusion. Heart and pericardium: Normal size heart with no pericardial effusion. Mediastinum and lucy: No mediastinum or hilar adenopathy. Vessels: Mild atherosclerosis aorta. No aneurysm. Normal size pulmonary artery. Chest wall and lower neck: No soft tissue masses. Upper abdomen: Surgical clips at the GE junction. Cyst upper pole RIGHT kidney 3.2 cm. No adrenal mas s. Osseous structures: No destructive process. CT/CT chest wo con [id number] IMPRESSION: 1. Moderate emphysema with hyperexpansion. 2. Progression of bilateral lower lobe pulmonary consolidations with developin g bronchiectasis. Associated bilateral pulmonary nodules not significantly hartmann ged in size. 3. Mild atherosclerosis aorta.
== END 2024-05-16 07:40 | disposition home or self-care (01) ==
PROVIDERS: PCP Electrodiagnostic Medicine; Visit Provider Electrodiagnostic Medicine
DX: J96.22 Acute and chronic respiratory failure with hypercapnia (principal); J43.9 Emphysema, unspecified; J47.9 Bronchiectasis, uncomplicated; N28.1 Cyst of kidney, acquired; R94.2 Abnormal results of pulmonary function studies
CPT/HCPCS: 71250; 94060; 94726; 94729; J7613

== ENCOUNTER → 2024-08-07 13:37 | Outpatient (BNVA) | payer MEDICARE, OTHER, SELFPAY | PROVIDERS: PCP Electrodiagnostic Medicine; Visit Provider Nurse Practitioner Family | DX: L73.8 Other specified follicular disorders (principal); L85.3 Xerosis cutis; L81.4 Other melanin hyperpigmentation; Z08 Encounter for follow-up examination after completed treatment for malignant neoplasm; Z85.828 Personal history of other malignant neoplasm of skin; L82.0 Inflamed seborrheic keratosis; L29.89 Other pruritus; L53.8 Other specified erythematous conditions; D48.5 Neoplasm of uncertain behavior of skin; L57.0 Actinic keratosis | CPT/HCPCS: 11102; 17000; 17110; 99213 ==

== ENCOUNTER → 2024-11-09 08:01 | Outpatient (BNVA) | payer MEDICARE, OTHER, SELFPAY | PROVIDERS: PCP Electrodiagnostic Medicine; Visit Provider Nurse Practitioner Family | DX: L73.8 Other specified follicular disorders (principal); L81.4 Other melanin hyperpigmentation; L57.8 Other skin changes due to chronic exposure to nonionizing radiation; X32.XXXA Exposure to sunlight, initial encounter; L82.1 Other seborrheic keratosis; Z08 Encounter for follow-up examination after completed treatment for malignant neoplasm; Z85.828 Personal history of other malignant neoplasm of skin; Z09 Encounter for follow-up examination after completed treatment for conditions other than malignant neoplasm; Z87.2 Personal history of diseases of the skin and subcutaneous tissue | CPT/HCPCS: 99213 ==

== ENCOUNTER → 2024-11-14 14:40 | Outpatient (BNVA) | payer MEDICARE, OTHER, SELFPAY | PROVIDERS: PCP Electrodiagnostic Medicine; Visit Provider Internal Medicine Cardiovascular Disease | DX: I95.9 Hypotension, unspecified (principal); I10 Essential (primary) hypertension; I73.9 Peripheral vascular disease, unspecified; Z86.73 Personal history of transient ischemic attack (TIA), and cerebral infarction without residual deficits; J44.9 Chronic obstructive pulmonary disease, unspecified; R60.9 Edema, unspecified; F17.290 Nicotine dependence, other tobacco product, uncomplicated | CPT/HCPCS: 99204 ==

== ENCOUNTER → 2025-02-12 09:39 | Outpatient (BNVA) | payer MEDICARE, OTHER, SELFPAY | PROVIDERS: PCP Electrodiagnostic Medicine; Visit Provider Nurse Practitioner Family | DX: L21.8 Other seborrheic dermatitis (principal); L81.4 Other melanin hyperpigmentation; L57.8 Other skin changes due to chronic exposure to nonionizing radiation; X32.XXXA Exposure to sunlight, initial encounter; L82.1 Other seborrheic keratosis; B35.1 Tinea unguium; Z08 Encounter for follow-up examination after completed treatment for malignant neoplasm; Z85.828 Personal history of other malignant neoplasm of skin; L57.0 Actinic keratosis | CPT/HCPCS: 17000; 99214 ==

== ENCOUNTER → 2025-05-09 08:03 | Outpatient (BNVA) | payer MEDICARE, OTHER, SELFPAY | PROVIDERS: PCP Electrodiagnostic Medicine; Visit Provider Nurse Practitioner Family | DX: L21.8 Other seborrheic dermatitis (principal); L73.8 Other specified follicular disorders; L81.4 Other melanin hyperpigmentation; Z08 Encounter for follow-up examination after completed treatment for malignant neoplasm; Z85.828 Personal history of other malignant neoplasm of skin; L82.0 Inflamed seborrheic keratosis; L53.8 Other specified erythematous conditions; L29.89 Other pruritus; R20.8 Other disturbances of skin sensation; L57.0 Actinic keratosis | CPT/HCPCS: 17000; 17110; 99214 ==

== ENCOUNTER 2025-05-10 07:34 | Outpatient (CLI) | payer MEDICARE, OTHER, SELFPAY ==
--- NOTE | 2025-05-10 07:38 | MR_ITS ---
WS: [id number] MRI HEAD WITH CONTRAST TECHNIQUE: Sagittal T1, T2 axial, T2 axial FLAIR, axial susceptibility weighted imaging, axial diffusion weighted images, and coronal T2 images were obtained. Pre and post-T1 axial and post T1 coronal images. ADC and FSPGR images. CLINICAL INFORMATION: HX OF CVA/PERSONAL HX OF TIA COMPARISON: CT 11/12/2022, MRI 2019 FINDINGS: No evidence of restricted diffusion to suggest acute ischemia. Mild small vessel changes with mild parenchymal volume loss. No hemosiderin on the susceptibly weighted images. Normal optic chiasm and pituitary infundibulum. Temporal lobes and hippocampal formations are normal in appearance. No abnormal gadolinium enhancement. Normal dural venous sinuses. No other acute findings. MR/MR head wo/w con [id number] IMPRESSION: 1. No evidence of restricted diffusion to suggest acute ischemia. 2. Mild small vessel changes slightly progressed since the MRI 2019. Mild pare nchymal volume loss. 3. No hemosiderin on susceptibility-weighted images. 4. No abnormal gadolinium enhancement.
[2025-05-10] MEDS: gadobenate dimeglumine 20 mL vial 17 ML IV (08:48)
== END 2025-05-10 07:35 | disposition home or self-care (01) ==
LOC: RAD 07:34
PROVIDERS: PCP Electrodiagnostic Medicine; Visit Provider Electrodiagnostic Medicine
DX: Z86.73 Personal history of transient ischemic attack (TIA), and cerebral infarction without residual deficits (principal); R93.7 Abnormal findings on diagnostic imaging of other parts of musculoskeletal system
CPT/HCPCS: 70553; A9577

== ENCOUNTER 2025-06-03 11:35 | Emergency (ER) | payer MEDICARE, OTHER, SELFPAY ==
[2025-06-03 11:38] VITALS: BP 159/85; PULSE 100; TEMP 36.3; O2SAT 93; BMI 23.7
--- OUTSIDE RECORDS SUMMARY | 2025-06-03 11:41 | XMS_ITS | Data Portability ---
Author Organization [facility], [facility] Address [address] [address] Care Team Providers Care Mortar Man Name Role Phone MIRIAM GRANT Primary Care Provider [facility] [employer] PULMONOLOGY - DATAR Pulmono logist BHUPINDER SIDDIQUI Counter Stitcher Assessment Encounter Date Assessment Date Assessment LastModified by Organization Details LastModified Time 04/24/2025 04/24/2025 Document scribed by Rony Puente Multiple Effect Evaporator Operator. I was present during interview and exam. I have reviewed and agree with above documentation . Dr. Miriam Grant. [email or web address] Not available 04/24/2025 10:57:17 05/23/2025 05/23/2025 Document scribed by Rony Puente Multiple Effect Evaporator Operator. I was present during interview and exam. I have reviewed and agree with above documentation . Dr. Miriam Grant. [email or web address] Not available 05/23/2025 12:22:22 Plan of Treatment Reminders Order Date Submit Date Provider Last Modified By Organization Details Last Modified Time Details Appointments None recorded. Lab None recorded. Referral cardiologis t referral 2024 [facility], [address] [facility] [address], [place], [address], 16:44:07 Procedures None recorded. Surgeries None recorded. Imaging MRI, brain + brain stem, w/wo contrast 2024 025 [facility] [employer], [address] [place], [address], 16:52:59 nuclear stress test 2024 [facility], [address] [place], [address], 09:44:42 Medication Orders triamcinolo ne acetonide 0.5 % topical ointment 2024 [email or web address] 47 [facility], [address], [place], [address], 18:36:28 Patient TargetsNo targets recorded. Patient Instructions Encounter Date Encounter Id Patient Instructions Last Modified By Organization Details Last Modified Time 04/19/2025 [id number] physical therapy* [email or web address] Not availa ble 04/26/2025 14:00:45 Walked with patient to assess gait and steadiness. We discussed follow up with Dr Grant for concerns about his heart since his had a [place] and concerns about his memory. In the meantime, read, do memory games and puzzles. Follow up for concerns prior to appointment. [email or web address] Not available 04/19/2025 16:05:12 Reason for Referral Counter Stitcher Referral for Is chemic heart disease Referring Physician: Miriam Grant, Family Medicine, Encounter Date: 05/23/2025 Results Created Date Observation Date Name Description Value Unit Range Abnormal Flag Note LastModifiedBy Organization Detail LastModifiedTime 05/10/2005/10/2025 MRI, brain + brain stem, w/wo contr ast No observ ation record ed. [facility] [address] [place], [address], 05/21/2025 18:31:19 05/13/2005/07/2025 nucle ar stres s test No observ ation record ed. [facility] [address] [place], [address], 05/21/2025 18:33:44 05/16/20 25 05/07/2025 nucle ar stres s test No observ ation record ed. [facility] [place], [facility] [address] [place], [address], 05/24/2025 17:51:05 Result Notes None recorded. Problems Name Problem SNOMED Code Status Onset Date Resolution Date Notes Provider Name and Address Organization Details Recorded Time Edema of lower extremity 296276871 Active 2022 Miriam Grant, [address], [address], [facility], L.L.CAlexander 3 09:44:28 Essential hypertensio n 41789566 Active 2022 Miriamesthela Grant, [address], [address], [facility], L.L.CAlexander 3 09:02:27 Essential tremor 182190599 Active 2022 Miriam Grant, [address], [address], [facility] 3 09:44:30 Severe chronic obstructive pulmonary disease 664718809 Active 2022 Miriam Grant, [address], [address], [facility] 3 09:44:31 History of cerebrovasc ular accident 977226114 Active 2022 Miriam Grant [address], [address], [facility] 3 09:44:32 Muscle weakness 17692062 Active 2022 Miriam Grant [address], [address], [facility], L.L.CAlexander 3 09:44:34 Obstructive sleep apnea of adult 9206954352222 Active 2022 Miriam Grant [address], [address] [place] [address] 5, [facility] 3 09:44:35 Peripheral vascular disease 985871561 Active 2022 Miriam Grant [address], [address] [place] [address] 5, [facility] 3 09:44:37 Idiopathic peripheral neuropathy 16870709 Active 2022 Miriam Grant [address], [address] [place] [address] 5, [facility] 3 09:44:38 Acute stroke 8557596092420 04 Active 2022 Miriam Grant [address], [address] [place] [address] 5, [facility] 3 08:52:41 Inflamed seborrheic keratosis 212768004 Active 2022 Miriam Grant [address], [address] [place] [address] 5, [facility] 3 09:04:34 Allergic rhinitis 49111802 Active 2022 Miriam Grant [address], [address] [place] [address] 5, [facility] 3 09:04:37 Lesion of skin of nose 1492138691382 9103 Active 2022 Miriam Grant [place] [address] 5, [facility] 3 10:00:24 Chronic obstructive pulmonary disease 03345310 Active 2022 Miriam Grant DO [address] [place] [address], [address], [facility] 3 10:52:30 Excessive salivation 15954810 Active 2022 Miriam Grant DO [address] [place] [address], [address], [facility] 3 11:37:55 Impacted cerumen of bilateral ears 9939612890958 108 Active 2023 Miriam Grant, [address], [address] [place] [address] 5, [facility] 4 08:14:57 Acute-on-ch ronic respiratory failure 31573879 Active 2023 Miriam Grant [address], [address] [place] [address] 5, [facility] 4 08:56:36 Inflammator y dermatosis 336546812 Active 2023 Sanjay Redding MD [address] [place] [address], [address] [place] [address] 5, [facility] 4 08:24:13 Bronchiecta sis 04512429 Active [address] chest 4 Miriam Grant [address], [address] [place] [address] 5, [facility] 4 14:21:29 Atheroscler osis of aorta 29158369 Active [address] Miriam Grant [address], [address] [place] [address] 5, [facility] 4 14:20:42 Spontaneous ecchymosis 236624726 Active 2023 Miriam Grant [address], [address], [facility], LAlexanderLAlexanderCAlexander 4 13:17:03 Traumatic oral hemorrhagic bulla 006054143 Active 2024 Miriam Grant [address], [address], [facility], KumarCAlexander 16:46:06 Chronic respiratory failure 27499873 Active 2024 Miriam Grant [address], [address], [facility], LRashelCAlexander 16:57:24 Acute pharyngitis 857412344 Active 2024 Miriam Grant [address], [address], [facility], Aram 18:44:26 Dehydration 14488714 Active 2024 Miriam Grant [address], [address], [facility], FlorencioLAlexanderCAlexander 17:13:27 Problem Notes None recorded. Procedures Surgical History Date Name Laterality Status Provider Name and Address Organization Details Recorded Time 09/27/19 24 Cerumen Removal-Irrigati on completed Miriam Grant [address], [address], [facility], L.L.CAlexander 09/29/2023 08:14:03 12/02/19 23 jr cryo warts completed Miriam Grant [address], [address], [facility] 12/01/2022 09:05:31 stomach ulcer excision completed Betzaida Silvestre [facility], LAlexanderLAlexanderCAlexander 05/11/2024 08:15:54 [facility] 08:16:17 [facility] 08:16:41 [facility]24 08:16:54 [facility] of cataract [facility] 11:31:25 Imaging Results None recorded. Procedure Notes None recorded. Medical Equipment None Reported. Allergies No known drug allergies Medications Name Sig Start Date Stop Date Status Note LastModified by Organization Details LastModified Time furosemid e 40 mg tablet TAKE 1 TABLET BY MOUTH EVERY DAY 11/03 completed Not Available Not Available Not Available fluconazo le 100 mg tablet TAKE 2 TABS BY MOUTH ON DAY 1, THEN 1 TAB DAILY X 13 MORE DAYS 11/03 completed Not Available Not Available Not Available atorvasta tin 40 mg tablet TAKE 1 TABLET BY MOUTH EVERY DAY 04/12 completed Not Available Not Available Not Available nystatin 100,000 unit/mL oral suspensio n SWISH 1 TABLESPO ON IN MOUTH FOR SEVERAL SECONDS THEN SWALLOW, UP TO 4 TIMES DAILY NEEDED. 04/12 completed Not Available Not Available Not Available doxycycli ne hyclate 100 mg capsule TAKE 1 CAPSULE BY MOUTH TWICE A DAY FOR 10 DAYS 03/24 completed Not Available Not Available Not Available azithromy william 250 mg tablet TAKE 2 TABLETS (500 MG) BY ORAL ROUTE ONCE DAILY FOR 1 DAY THEN 1 TABLET (250 MG) BY ORAL ROUTE ONCE DAILY FOR 4 DAYS 12/19 completed Not Available Not Available Not Available metoprolo l tartrate 100 mg tablet Take 1 tablet every day by oral route. 12/21 completed Not Available Not Available Not Available fluconazo le 150 mg tablet TAKE 1 TABLET BY MOUTH EVERY DAY FOR 3 DAYS 04/12 completed Not Available Not Available Not Available lisinopri l 20 mg tablet Take 1 tablet every day by oral route for 90 days. 2024 active Not Available Not Available Not Avai lable prednison e 20 mg tablet TAKE 2 TABLETS BY MOUTH EVERY DAY IN THE MORNING FOR 5 DAYS 04/12 completed Not Available Not Available Not Available fluoroura cil 5 % topical cream PLEASE SEE ATTACHED FOR DETAILED DIRECTIO NS 04/12 completed Not Available Not Available Not Available triamcino lone acetonide 0.5 % topical ointment APPLY A THIN LAYER TO THE AFFECTED AREA(S) BY TOPICAL ROUTE 2 TIMES PER DAY UNTIL RESOLVED 2024 active Not Available Not Available Not Avai lable clopidogr el 75 mg tablet TAKE 1 TABLET BY MOUTH EVERY DAY 06/28 completed Not Available Not Available Not Available aspirin 81 mg tablet,de layed release Take 1 tablet every day by oral route. active Not Available Not Available No t Available acyclovir 800 mg tablet TAKE 1 TABLET BY MOUTH 5 TIMES A DAY FOR 7 DAYS. 04/12 completed Not Available Not Available Not Available betametha sone acetate and sodium phos 6 mg/mL suspensio n for injection Take 6 mg every day by injectio n route for 1 day. 12/19 completed Not Available Not Available Not Available meclizine 25 mg tablet TAKE 1 TABLET BY MOUTH THREE TIMES A DAY NEEDED 11/03 completed Not Available Not Available Not Available bumetanid e 0.5 mg tablet TAKE 1 TABLET BY MOUTH EVERY DAY IN THE MORNING. 04/12 completed Not Available Not Available Not Available triamcino lone acetonide 0.1 % topical ointment APPLY THIN COAT TO AFFECTED AREA TWICE A DAY 04/12 completed Not Available Not Available Not Available lisinopri l 10 mg tablet TAKE 1 TABLET BY MOUTH EVERY DAY 04/12 completed Not Available Not Available Not Available hydrochlo rothiazid e 12.5 mg capsule TAKE 1 CAPSULE BY MOUTH EVERY DAY IN THE MORNING FOR 90 DAYS 03/01 completed stopped d/t fatigue. Not Available Not Available Not Available furosemid e 20 mg tablet TAKE 1 TABLET DAILY FOR LEG SWELLING 06/09 completed Not Available Not Available Not Available ergocalci ferol (vitamin D2) 1,250 mcg (50,000 unit) capsule TAKE 1 CAPSULE BY MOUTH ONCE A WEEK FOR 4 MONTHS THEN RETEST LEVELS. 04/12 completed Not Available Not Available Not Available levofloxa william 500 mg tablet TAKE 1 TABLET BY MOUTH EVERY DAY FOR 10 DAYS 05/11 completed Not Available Not Available Not Available methylpre dnisolone 4 mg tablets in a dose pack TAKE 6 TABLETS ON DAY 1 DIRECTED ON PACKAGE AND DECREASE BY 1 TAB EACH DAY FOR A TOTAL OF 6 DAYS 06/28 completed Not Available Not Available Not Available albuterol sulfate HFA 90 mcg/actua tion aerosol inhaler INHALE1 puff by mouth every 6 hours as needed for wheezing 2024 active Not Available Not Available Not Avai lable doxycycli ne hyclate 100 mg tablet TAKE 1 TABLET BY MOUTH TWICE A DAY 11/03 completed Not Available Not Available Not Available loratadin e 10 mg tablet TAKE 1 TABLET BY MOUTH EVERY DAY FOR ITCH. 06/28 completed Not Available Not Available Not Available ipratropi um bromide 0.02 % solution for inhalatio n INHALE CONTENTS OF 1 VIAL PER NEBULIZE R EVERY 8 HOURS FOR CHRONIC OBSTRUCT CAMPBELL PULMONAR Y DISEASE 03/01 completed Not Available Not Available Not Available amoxicill in 875 mg-potass ium clavulana te 125 mg tablet TAKE 1 TABLET BY MOUTH TWICE A DAY FOR 10 DAYS 04/18 completed Not Available Not Available Not Available Mucinex 600 mg tablet, extended release TAKE 1 TABLET BY MOUTH TWICE A DAY FOR COUGH. 06/28 completed Not Available Not Available Not Available Ventolin 90 mcg/actua tion aerosol inhaler four times daily, as needed 03/24 completed Recorded 07/27/19 23 7:30AM by Susan Cervantes, Office Visit; Refill Quantity : 1; Each; Not Available Not Available Not Available ergocalci ferol (vitamin D2) once a week 03/24 completed DM/sd; Recorded 06/08/20 22 1:34PM by Alma Rosa Rojas, Historic al Summary; Refill Quantity : 0; Not Available Not Available Not Available ipratropi um bromide every 8 hours for chronic obstruct campbell pulmonar y disease 03/24 completed Recorded 06/22/20 22 4:31PM by Laurie English, Office Visit; Refill Quantity : 100; Each; Not Available Not Available Not Available Lasix daily for leg swelling 03/24 completed DM/sd; 44188; Recorded 08/26/19 23 2:24PM by Alma Rosa Rojas (Authori henrik through Miriam Grant DO), Annotati on/Adden dum; Refill Quantity : 0; Not Available Not Available Not Available Budesonid e (Inhalati on) 0.5mg per 2 ml. BID # 60, refill 11 06/28 completed Not Available Not Available Not Available metoprolo l succinate daily 03/24 completed 0; Recorded 09/29/19 23 2:44PM by Laurie English, Office Visit; Not Available Not Available Not Available Nystatin/ Triamcino lone AAA two times a day 03/24 completed Recorded 07/30/19 23 10:12AM by Laurie English, Office Visit; Refill Quantity : 0; Not Available Not Available Not Available hydrochlo rothiazid e 12.5 mg tablet 03/24 completed 0; Recorded 09/29/19 23 2:44PM by Laurie English, Office Visit; Not Available Not Available Not Available formotero l fumarate 20 mcg/2 mL solution for nebulizat ion Inhale 2 mL twice a day by inhalati on route. 06/28 completed Not Available Not Available Not Available Solu-Medr ol (PF) 125 mg/2 mL solution for injection Take 125 mg by injectio n route. 12/21 completed Not Available Not Available Not Available Combivent Respimat 20 mcg-100 mcg/actua tion solution for inhalatio n Inhale 1 puff 4 times a day by inhalati on route. 12/21 completed Not Available Not Available Not Available Anoro Ellipta daily 03/24 completed DM/sd; 07243; Recorded 04/20/20 22 12:36PM by Alma Rosa Rojas (Authori henrik through Miriam Grant DO), Office Visit; Refill Quantity : 1; Each; Not Available Not Available Not Available Getachewkyle Ellipta 100 mcg-62.5 mcg-25 mcg powder for inhalatio n Inhale 1 puff every day by inhalati on route as directed for 90 days. 2024 active Not Available Not Available Not Avai lable Qvar RediHaler 80 mcg/actua tion HFA breath activated aerosol Inhale 2 puffs twice a day by inhalati on route as needed. 03/01 completed Not Available Not Available Not Available Yupelri 175 mcg/3 mL solution for nebulizat ion Inhale 3 mL every day by nebuliza tion route. 06/28 completed Not Available Not Available Not Available Wixvangie Inhub 500 mcg-50 mcg/dose powder for inhalatio n one puff two times daily 04/26 completed Not Available Not Available Not Available Silvanaxela Inhub 03/24 completed 0; Recorded 09/29/19 2:44PM by Laurie English, Office Visit; Not Available Not Available Not Available Mirtha Aerospher e 160 mcg-9mcg- 4.8mcg/ac tuation HFA aerosol inhaler Inhale 2 puffs twice a day by inhalati on route. 12/21 completed Not Available Not Available Not Available Paxlovid 300 mg (150 mg x 2)-100 mg tablets in a dose pack TAKE DIRECTED TWICE DAILY FOR 5 DAYS 11/03 completed Not Available Not Available Not Available Paxlovid use as directed per instruct ions in pack 03/24 completed We do not have the updated 300/100m g dose in our system. Please give Paxlovid 300/100m g BID for 5 days. #10. Rfl 0.; Recorded 07/27/19 23 7:30AM by Susan Cervantes, Office Visit; Refill Quantity : 0; Not Available Not Available Not Available Vitals Date Recorded Body height Body mass index (BMI) Body weight Oxygen saturation Heart rate Respiratory rate Body temperature Systolic And Diastolic Provider Name and Address Organization Details Last Updated DateTime 5 182.88 cm 24.3 kg/m2 12367.8 3 g 96 % 70 /min 20 /min 98 [degF] 150/90 mm[Hg] ALMA ROSA FIDEL [facility] 12:52:13 Date Recorded Body height Body mass index (BMI) Body weight Oxygen saturation Heart rate Respiratory rate Systolic And Diastolic Provider Name and Address Organization Details Last Updated DateTime 5 182.88 cm 23.8 kg/m2 32136.0 6 g 93 % 90 /min 20 /min 164/92 mm[Hg] LAURIE ENGLISH [facility] 5 16:45:38 Date Recorded Body height Body mass index (BMI) Body weight Oxygen saturation Heart rate Body temperature Systolic And Diastolic Provider Name and Address Organization Details Last Updated DateTime 5 182.88 cm 24 kg/m2 15807.8 5 g 96 % 85 /min 98.2 [degF] 140/80 mm[Hg] Hayde Lyon [facility] 5 15:36:56 Date Recorded Body height Body mass index (BMI) Body weight Respiratory rate Oxygen saturation Heart rate Systolic And Diastolic Provider Name and Address Organization Details Last Updated DateTime 5 182.88 cm 24.1 kg/m2 31536.6 5 g 18 /min 95 % 82 /min 130/80 mm[Hg] Ludayaya Cervantese [facility] 5 10:40:33 Date Recorded Body height Body mass index (BMI) Body weight Oxygen saturation Heart rate Respiratory rate Systolic And Diastolic Provider Name and Address Organization Details Last Updated DateTime 5 182.88 cm 23.9 kg/m2 21163.9 6 g 95 % 81 /min 18 /min 122/78 mm[Hg] Ludayaya Cervantese [facility] 5 11:55:29 Social History Question Answer Notes LastModified by Organizat ion Details LastModified Time Tobacco Smoking Status Former Smoker RACHEL bunch [facility] 04/26/2023 11:31:06 What Was The Date Of Your Most Recent Tobacco Screening? 04/19/2025 outs Information not available 04/19/2025 Sex: Unknown Functional Status Question Answer Note LastModified by Organizat ion Details LastModified Time Do you use any illicit or recreational drugs? No [email or web address] Information not available 11/03/2022 Do you or have you ever used any other forms of tobacco or nicotine? No [email or web address] Information not available 11/03/2022 What is your level of alcohol consumption? None [email or web address] Information not available 11/03/2022 Mental Status None recorded. Family History Relationship Description Onset Age of this Age Resolved Age Notes LastModified by Organization Details LastModified Time Mother Diabetes mellitus brothe r and sister [email or web address] Not available 04/26/2023 11:30:03 Mother Transient cerebral ischemia [email or web address] Not available 04/11 11:30:12 Brother Malignant melanoma of skin Not available 04/11 11:30:33 Sister Malignant neoplasm of uterus [email or web address] Not available 04/11 11:30:44 Medical History Condition Response Coronary Artery Disease N Other N Gout N Kidney Stones N Blood Diseases N Hyperthyroidism N Breast Cancer N Blood Transfusion N Depression N COPD Y Lung Disease N Hypothyroidism N Developmental or Behavioral Disorders N Defects or Inherited Disease N Breast Problem N Difficulty Swallowing N Anesthesia Complications N Meniere's disease N Anxiety Disorder N Muscle, Joint, or Bone Problems N Vision or Eye Problems Y Arthritis N Polyps N Infertility N Cancer N Varicosities N Stroke Y Endometriosis N Bladder or Kidney Problems N High Cholesterol Y Liver Disease N Headaches N Fibromyalgia N Kidney Disease N Allergies/Hayfever N Heart Problems N Ear or Hearing Problems Y Fatigue Y Hospitalizations Y Thyroid Problems N GI Problems N ADD/ADHD N Skin Problems N Eating Disorder N Anemia N Constipation N Mental Illness N Ovarian Cancer N Diabetes N Bedwetting N Seizures/Epilepsy N Tuberculosis N Pain N Eczema N Diverticulitis N Abuse/Domestic Violence N Asthma N Reflux/GERD N Hepatitis N Heart Disease N Pulmonary Embolism N Pre-Eclampsia N Hypertension N Chronic Ear Infections N Osteoporosis N Chicken Pox N Autism Spectrum Disorder (ASD) N Thrombophilias N Past Encounters Encounter ID Performer Location Encounter Start Date Encounter Closed Date Diagnosis/Indication Diagnosis SNOMED-CT Code Diagnosis ICD10 Code Diagnosis IMO Codes Diagnosis Note [id number] Miriam Grant DO [facility] ([facility]) [address] [place] [address] 11/03/2022 08:10:36 11/03/2022 11:48:00 Edema of lower extremity 217500688 R60.0 much improved. reviewed and discussed normal echo and recent labs. likely 2/2 covid Essential hypertension 17812369 I10 continue HCZT and metroprolo l Essential tremor 4085413 09 G25.0 stable. no meds Severe chr onic obstructive pulmonary disease 505321889 J44.[address] Etienne pulfermín. continue inhalers and cardiopulm rehab. pt quit smoking 2020. History of cerebrovascular accident 866022709 Z86.73 around 2019 with dysarthria and hemiparesi s. weakness much improved. dysarthria nearly resolved. continue asa, bp and lipid control (atorvasta tin) Muscle weakness 37613838 M62.81 improving, but persistent since cva. counseled on daily exercise. Obstructiv e sleep apnea of adult 2017381201 103 G47.33 dx 2020, mild. Peripheral vascular disease 003070236 I73.9 followed by cardiology and with hx cva. continue bp management and lipid managment Idiopathic peripheral neuropathy 93124970 G60.9 dx 2020. followed by neurology at [facility]. stable [id number] JENNA MANTILLA [facility] ([facility]) [address] [place] [address] 11/12/2022 18:47:00 11/18/2022 10:06:35 Pain in throat 331522036 R07.0 Intermitte nt confusion 456949858 R41.0 [id number] Miriam Grant DO [facility] ([facility]) [address] [place] [address] 11/17/2022 08:10:53 11/17/2022 18:13:33 Acute stroke 6193661429 82284 I63.9 resolved in less than 24 hrs. ER workup negative. he has been on statin and bp control but did not tolerate asa with bleeding ulcers more than once in the past. will try plavix.I counseled the patient on diagnosis, treatment options, medication s, and expectatio ns. All questions were addresssed . They were instructed to call the office or come in for Follow Up with any questions, concerns, or worsening problems. will have pt fu in 10-14 days. Essential hypertension 24246994 I10 continue HCZT and metroprolo l, add lisinopril . counseledf /u 10-14 days. monitor daily. [id number] Miriam Grant DO [facility] ([facility]) [address] [place] [phone] 12/01/2022 08:11:55 12/01/2022 20:13:54 Edema of lower extremity [id number] R60.0 improved. Inflamed s eborrheic keratosis [id number] L82.0 After detailed discussion on diagnosis and treatment options, pt expressed verbal desire to proceed today with procedure and expressed verbal understand ing of options, risks, procedure, and expectatio ns.Pt tolerated the cryotherap y procedure on 3 lesions well. Aftercare instructio ns with expectatio ns and precaution s were discussed. Allergic rhinitis 142632 04 J30.9 likely cause of cough. will start claritin for 2 wks. pt not in acute copd flair, but counseled on s/s and when we need to start abx and high dose steroids. Essential hypertension 71769570 I10 continue HCZT and metoprolol , add lisinopril . counseled Miriam Grant DO [facility]) [address] [place] [address] [id number] 5 12/23/2022 08:02:25 12/23/2022 20:27:28 Severe chronic obstructive pulmonary disease 370030874 J44.[address] Etienne pulfermín. stressed again that pt needs to be on breztri or trelegy every day. given samples today. and cardiopulm rehab. pt quit smoking 2020. Acute exac erbation of chronic obstructive pulmonary disease 939887666 J44.1 I counseled pt on diagnosis of acute copd flair up. will start antibiotic s and steroids. Pt to continue to use inhalers/n ebs as prescribed . if worsening or no improvemen t in 2-3 days, pt is to f/u or go to ER. [id number] Miriam Grant DO [facility]) [address] [place] [address] [id number] 5 02/24/2023 08:02:57 02/24/2023 12:45:38 Ecchymosis 031793246 R58 [id number] Miriam Grant DO [facility]) [address] [place] [address] [phone] 5 03/24/2023 09:17:22 03/24/2023 11:52:17 Edema of lower extremity 380635787 R60.0 Concern for peripheral vascular disease. Echocardio gram done in October did not show any concerns for congestive heart failure. BNP done around that time was 200. Renal function has been adequate. Patient is to start back on his Lasix 20 mg daily for the next 1 to 2 weeks. He is to follow-up with his cardiologi st for further evaluation . Peripheral vascular disease 024437989 I73.9 Concern for, with exam and history. We will get ankle brace eluate for arterial blood flow. Also concern for possible venous insufficie ncy. We will have his cardiologi st, Dr. Lynch, evaluate further on this. Lesion of skin of nose [id number] 1169904 J34.89 Left side of bridge of nose. Growing. Appears verrucoid. Will send to dermatolog y. [id number] Miriam Grant DO [facility]) [address] [place] [address] [id number] 5 03/31/2023 09:59:46 03/31/2023 11:17:06 Chronic obstructive pulmonary disease 76160357 J44.9 I counseled pt on diagnosis of acute copd flair up. will start antibiotic s and steroids. Pt to continue to use inhalers/n ebs as prescribed . if worsening or no improvemen t in 2-3 days, pt is to f/u or go to ER. Patient has been on Breztri samples and when he is using this medication he does not have exacerbati ons. He ran out of this medication and went back to the [facility] a few weeks ago. This has resulted in another exacerbati on. This also may be the reason why he has esophageal candidiasi s. I counseled patient again on need to be on Breo strength. We will try to assist with getting medication covered by insurance. Candidiasi s of esophagus 55151615 B37.81 Presumed recurrence . Counseled patient again on use of steroid inhalers. We will give 7-day treatment as this is what it required last time the operations research scientist . [id number] Brenda Arora MD [facility]) [address] [place] [address] [id number] 5 04/26/2023 11:11:47 04/26/2023 12:31:32 Acute exacerbation of chronic obstructive pulmonary disease 945308286 J44.1 Pt feels well, just struggling with the cough. He cannot afford inhalers, sees Dr. Etienne. Pt given samples of trelegy today. Dribbling from mouth 627 32162 K11.7 unclear etiology, pt did not and does not have any other symptoms of stroke. f/u w PCP. consider med to decrease secretions . Bilateral lower limb edema 718267980 R60.0 based on his varicositi es and spider veins I suspect this will be a chronic issue for him, advised elevation and compressio n hose. he has furosemide to take.... [id number] Miriam Grant DO [facility]) [address] [place] [address] [id number] 5 05/10/2023 10:54:15 05/10/2023 17:41:01 Chronic cough 65313933 R05.3 Excessive salivation 538 38161 K11.7 Versus week mouth muscles. Patient has history of stroke with left facial weakness but he has been drooling out of the right side of his face. Counseled patient on repeat stroke as a possible etiology. He does not feel like there is a specific onset for this and it has been several weeks ago. We will work on home muscle exercises. Consider physical therapy and speech therapy as well as an MRI with worsening. Discussed starting medic patients with worsening also. Would consider amitriptyl ine. [id number] Miriam Grant DO [facility]) [address] [place] [address] [id number] 5 06/09/2023 08:01:56 06/09/2023 09:26:08 Edema of lower extremity 495603612 R60.0 Echocardio gram done in October did not show any concerns for congestive heart failure. BNP done around that time was 200. Renal function has been adequate. ABIs normal. we will repeat labs today as below, will consider peripheral venous evaluation with imaging and possible referral to vasc.we will change lasix to bumex for now for prn usage. Essential hypertension 54473408 I10 continue HCZT and metoprolol , add lisinopril . counseled History of cerebrovascular accident 048049264 Z86.73 around 2019 with dysarthria and hemiparesi s. weakness much improved. dysarthria nearly resolved. continue asa, bp and lipid control (atorvasta tin)labs today [id number] CAITLIN CHOI PA-C [facility]) [address] [place] [address] [id number] 5 08/27/2023 08:09:38 08/27/2023 09:22:33 Acute exacerbation of chronic obstructive pulmonary disease 859362190 J44.1 Gave him samples of Breztri today.Will try a combo of combivent and qvar to see if more affordable then one of the triple inhalorsMe ssage sent to [employer] to see if they can help with pt assistance for inhalors. [id number] Miriam Grant DO [facility]) [address] [place] [address] [id number] 5 09/27/2023 11:12:07 09/27/2023 13:44:14 Acute stroke [id number] 77030 I63.9 History of. Continue Plavix, blood pressure management , statin. Edema of l ower extremity 659456651 R60.0 Peers to be secondary to venous insufficie ncy with incompeten t valves of lower extremitie s. Continue with diuretics and care with vascular specialist Peripheral vascular disease 474334371 I73.9 With what appears to be venous insufficie ncy with incompeten t valves of the lower extremity veins. Continue care with vascular specialist . CT scan scheduled. Impacted c erumen of bilateral ears 2530076991 694103 H61.23 Cerumen completed removed with normal exam post procedure without complicati on as above. I counseled pt on ear care. [id number] JENNA DOOLEY [facility]) [address] [place] [address] [id number] 5 10/25/2023 08:06:17 10/25/2023 08:59:26 Acute exacerbation of chronic obstructive pulmonary disease 367004879 J44.1 IM steroid administer ed today.Will have pt start PO prednisone .If patient develops fever, worsening cough, increased sob, or feels worse then he needs to return for re-evaluat ion. [id number] Miriam Grant DO [facility]) [address] [place] [address] [id number] 5 12/15/2023 10:10:04 12/16/2023 10:35:18 Chronic obstructive pulmonary disease 09704117 J44.9 Unchanged, will write Trelegy inhaler, counseled Albuterol as needed. Provided with [employer]'s health navigator aviva olivarez, pt will contact her regarding making Trelegy affordable . Essential hypertension 94677373 I10 12/15/23- pt stopped Metoprolol concerned for side effects, BP running well off of it, continue Lisinopril and HCTZ. History of cerebrovascular accident 212615024 Z86.73 around 2019 with dysarthria and hemiparesi s. weakness much improved. dysarthria nearly resolved. continue asa, bp and lipid control (atorvasta tin)labs today Seborrheic keratosis 394 265394 L82.1 Counseled, offered procedure to SK on right back, pt declines today. Erectile dysfunction 860 296775 F52.21 Lab today. Peripheral vascular disease 209625443 I73.9 12/15/23- seeing Vascular, sonogram scheduled 12/16/23. [id number] Miriam Grant DO [facility]) [address] [place] [address] [id number] 5 12/22/2023 08:05:45 12/22/2023 09:29:20 Candidiasis of mouth 30665517 B37.0 12/22/23- counseled Fluconazol e for 3 days, Nystatin swish and swallow PRN. I counseled the patient on diagnosis, treatment options, medication s, and expectatio ns. All questions were addresssed . They were instructed to call the office or come in for Follow Up with any questions, concerns, or worsening problems. Severe chr onic obstructive pulmonary disease 573378995 J44.[address] Etienne pulm. Quit smoking in 2020. Using Trelegy and it's helping significan tly. Has been on Breztri, didn't help as much as Trelegy. [id number] Miriam Grant DO [facility]) [address] [place] [address] [id number] 03/01/2024 11:07:28 03/18/2024 07:35:44 Herpes zoster 5584634 B02.9 03/01/24- counseled Acyclovir today, Prednisone , topical steroid. Chronic ob structive pulmonary disease 33999296 J44.9 Brextri/ Trelegy neb, counseled on use. [id number] Miriam Grant DO [facility]) [address] [place] [address] [id number] 5 04/12/2024 14:01:44 04/12/2024 16:52:36 Chronic obstructive pulmonary disease 06380316 J44.9 04/12/24- acute exacerbati on, abx, steroid, counseled, pt prefers IM steroid. Continue inhalers and neb. Brextri/ Trelegy neb, counseled on use. [id number] Miriam Grant DO [facility]) [address] [place] [address] [id number] 5 04/18/2024 12:08:32 04/18/2024 14:21:02 Chronic obstructive pulmonary disease 61349314 J44.9 04/18/24- worsening, counseled will change Amoxicilli n, start Mucinex, and repeat Betamethas one injection. I am concerned for developing Pneumonia. Counseled wear home O2 at 2L at hs and during the day when SOB is increased. Expect to be feeling better within 3 days, RTC if not, consider XR, lab. 04/12/24- acute exacerbati on, abx, steroid, counseled, pt prefers IM steroid. Continue inhalers and neb.Brextr i/ Trelegy neb, counseled on use. [id number] Miriam Grant DO [facility]) [address] [place] [address] [phone] 5 05/01/2024 08:06:04 05/01/2024 09:05:32 Chronic obstructive pulmonary disease 08093500 J44.9 05/01/24: not much improvemen t with levaquin. will start guaifenesi n, given samples of Trelegy, so hold the neb version while on this. will get CT and PFTs due to concern for overall worsening of his severe COPD. continue as needed supplement al O2.04/18/24 - worsening, counseled will change Amoxicilli n, start Mucinex, and repeat Betamethas one injection. I am concerned for developing Pneumonia. Counseled wear home O2 at 2L at hs and during the day when SOB is increased. Expect to be feeling better within 3 days, RTC if not, consider XR, lab. 04/12/24- acute exacerbati on, abx, steroid, counseled, pt prefers IM steroid. Continue inhalers and neb.Brextr i/ Trelegy neb, counseled on use. Acute-on-c hronic respiratory failure 88502589 J96.22 as above [id number] Sanjay Redding MD [facility]) [address] [place] [address] [id number] 5 05/11/2024 08:03:38 05/15/2024 06:05:55 Inflammatory dermatosis 627528371 L30.9 No other symptoms suggest underlying cause. We will start Medrol Dosepak and antihistam ine to stop the itch. Follow-up with PCP if symptoms do not improve. [id number] Miriam Grant DO [facility]) [address] [place] [address] [id number] 5 06/12/2024 12:51:51 06/12/2024 15:16:18 Spontaneous ecchymosis 219761910 R23.3 unclear cause. will get labs to r/o pathology. counseled on age and thin skin. no asa or blood thinners for now. [id number] Miriam Grant DO [facility] [address] [place] [address] [id number] 5 06/28/2024 08:06:45 06/28/2024 17:54:53 Chronic obstructive pulmonary disease 05232954 J44.9 06/28/24- Samples of Trelegy provided today, pt will call to have us send to mail order pharmacy after Jul 12.05/01/24 : not much improvemen t with levaquin. will start guaifenesi n, given samples of Trelegy, so hold the neb version while on this. will get CT and PFTs due to concern for overall worsening of his severe COPD. continue as needed supplement al O2.04/18/24 - worsening, counseled will change Amoxicilli n, start Mucinex, and repeat Betamethas one injection. I am concerned for developing Pneumonia. Counseled wear home O2 at 2L at hs and during the day when SOB is increased. Expect to be feeling better within 3 days, RTC if not, consider XR, lab. 04/12/24- acute exacerbati on, abx, steroid, counseled, pt prefers IM steroid. Continue inhalers and neb.Brextr i/ Trelegy neb, counseled on use. Spontaneou s ecchymosis 491513033 R23.3 06/28/24- worsening, reviewed recent lab, Plt, PT, PTT. Discussed referral to Hematology for evaluation , pt will consider, ok with local provider. [id number] Miriam Grant DO [facility]) [address] [place] [address] [id number] 5 07/17/2024 17:03:29 08/28/2024 08:49:26 Vyptf-an-fyptafq respiratory failure 79698158 J96.22 COPD with hypoxia and hypercapne a. On eval today: Ambulating oxygen 97% RA walked without oxygen and dropped to 88% RA applied 2 liters per nc and sats came back to 94%pt requires supplement al oxgyen at 2LN.contin ue trelegy, albuterol, pt requires supplement al oxygen as per hpi above. Chronic ob structive pulmonary disease 50301272 J44.9 continue trelegy, albuterol, pt requires supplement al oxygen as per hpi above. [id number] Miriam Grant DO [facility]) [address] [place] [address] [id number] 5 08/16/2024 15:34:41 08/17/2024 11:18:55 Traumatic oral hemorrhagic bulla 184534431 K12.1 Angina bullosa haemorrhag ica. (oral blood blister) counseled on dx, benign, should resolve in less than 2 wks. if no change in 2 wks. f/u, may need to consider bx. Atheroscle rosis of aorta 05639156 I70.[address] scan, mild. pt declines statin, continue asa. Essential hypertension 75941340 I10 12/15/23- pt stopped Metoprolol concerned for side effects, BP running well off of it, continue Lisinopril and HCTZ. History of cerebrovascular accident 645727513 Z86.73 around 2019 with dysarthria and hemiparesi s. weakness much improved. dysarthria nearly resolved. continue asa, bp and lipid control (atorvasta tin)labs today Peripheral vascular disease 447964678 I73.9 continue care with vascular specialist . continue ASA. Severe chr onic obstructive pulmonary disease 514089822 J44.9 improved. continue trelegy and prn albuterol. Chronic re spiratory failure 24370851 J96.12 improved. continue trelegy and prn albuterol. [id number] Miriam Grant DO [facility]) [address] [place] [address] [id number] 5 10/02/2024 17:52:05 10/02/2024 18:45:24 Acute pharyngitis 435417868 J02.9 Symptoms worsening and pt higher risk. counseled on conservati ve home treatments . will start antibiotic s. and give IM steroids. Return to office with no improvemen t or any problems. Go to ER with severe worsening or severe problems. [id number] JENNA DOOLEY [facility] [address] [place] [address] [id number] 5 11/17/2024 12:40:16 11/22/2024 12:48:28 Abrasion of skin of left elbow region 0540078307 1492156 S50.312A 382918 Abrasion cleansed with Hibiclens. Antibiotic ointment and non adherent dressing applied. Discussed to wash daily with soap and water. If you develop redness, drainage, swelling, or concerns for infection develop return for re-evaluat ion Accidental fall 20463914 2 W19.XXXA 8684117 Contusion of scalp 38845 004 S00.03XA 253778 No laceration or hematoma found on exam today. Neurologic ally intact with no signs of intracrani al bleed. Tobacco us age screening 882444409 Z01.89 [id number] Former smoker [id number] Miriam Grant DO [facility]) [address] [place] [address] [id number] 5 12/19/2024 16:19:57 12/20/2024 16:14:13 Dehydration 77292705 E86.0 0241311830 glucose 132, pt with some cramping. pt wants to avoid ER if able. HE will go home and drink 1 large gateraid, and 2 large glasses of water in the next 2 hrs. more fluids before bed. Return to office with no improvemen t or any problems. Go to ER with severe worsening or severe problems. 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 Contact dermatitis 16290 004 L25.9 98416175 04/24/25: Unknown trigger, only on the left side of the body. Will treat with topical. Counseled on diagnosis, treatment options including medication s and possible side effects. History of cerebrovascular accident 101824134 Z86.73 153634 04/24/25: Counseled MRI Brain. Atheroscle rosis of aorta 61631794 I70.0 04/24/25: Stress test today. [id number] Miriam Grant DO [facility]) [address] [place] [address], [place] [address]-775 5 05/23/2025 10:57:25 2025 15:05:31 Ischemic heart disease 727640938 I25.9 095182 05/23/25: Reviewed and discussed recent stress test, will refer to Cardio for Angiogram. Pt ok with [facility] locally. Health Concerns Section Related Observation LastModified by Organization Detai ls LastModified Time None Recorded Concern Status LastModified by Organization Details LastModified Time None Recorded Advance Directives Directive None Recorded Payers Insurance Date Sequence Insurance Name Policy Number Policy Jenkins Covered Member ID Jenkins Member ID Guarantor Name 05/30/2025 2 [employer] (MEDICARE SUPPLEMENT) Marcel Perea [id number] Jmarleny Dacostaitt 05/22/2025 1 [place] Lyndsay Perea [id number] Jt Olesyaitt 05/22/2025 [place] - [place] - [facility]-FQ (MEDICARE) Lyndsay Perea [id number] Jt Olesyarichar Notes Date Note Type Note Provider Name and Address Organization Details Recorded Time 5 text/html ROS as noted in the HPI Patient was putting something in the back of the truck, accidentally tripped and fell out of the truck. He has a skin tear on his left elbow and he hit on the back of his head. No LOC. Denies nausea, vomiting, confusion. States his head feels a little fuzzy. This occurred about 3 hours prior to arrival. JENNA DOOLEY [address] [place], [phone], [facility], L.[place]lexander[place]lexander 11/20/2024 08:41:31 5 text/html ROS as noted in the HPI pts states pt was sitting at the desk eating lunch when she noticed pt was very shaky, unable to hold his food, kept dropping his food, she was trying to get pts attention he states he did not hear her yelling at him, he has no recollection of dropping food, yelling at him. pt admits he started having BUE pain, RLE cramping and unable to walk after having this episode . feels like he is unable to stand up and stay standing for a period of time admits to having some brain fog and confusion in office today. no vomiting, no biting tongue. no unilateral weakness or slurred speech. Miriam Grant, DO [address] [place], [phone], [facility], LAlexanderLAlexanderC. 12/19/2024 17:17:38 5 text/html walk inx 2 days discoloration to left arm without injury, unsteady gait, word searching, confusion- Hx small stroke MAGDY MINNA, ACT TUTOR [address] [place], [phone], [facility], [facility] 04/19/2025 16:07:44 5 text/html ROS as noted in the HPI Pt presents for [place] f/u He was seen on 04/19/25 walk inx 2 days discoloration to left arm without injury, unsteady gait, word searching, confusion- Hx small stroke Plan at visit:1. RpeychewF93.1: WeaknessPHYSICAL THERAPY*2. UuccezgngI37: Dizziness and giddiness3. Senile khtxucqT03.2: Other nonthrombocytopenic purpura4. Unsteady gait when rfwxtmlK69.81: Unsteadiness on feetDiscussion NotesWalked with patient to assess gait and steadiness. We discussed follow up with Dr Grant for concerns about his heart since his had a [place] and concerns about his memory. In the meantime, read, do memory games and puzzles. Follow up for concerns prior to appointment. === He admits that Wednesday 2 weeks ago ( 04/09/25) his had [place]. He is concerned that he needs checked for this since having the same sx. He has fatigue, SOB, denies cp, and does not remember any other sx.He occasionally has MARKS. Taking baby Asa sometimes .Reports he bruising real bad . He had red itchy rash on his left arm, that started last Wednesday, 6 days ago, and he went to the [place] mostly [place] now. He applies lotion to this now and then, reports the rash just comes and goes. He has been stumbling when walking. He admits that has been worse in the last 2 weeks. He has to concentrate on walking or he stumbles into trujillo and objects. He has been having difficulty with his words, he has trouble finding the right words and/or getting the words out to communicate to others No brain imaging since 2022, when he had a normal CT Head.Pt with h/o CVA. Miriam Russell, [address] [place] [address], [phone], [facility] 04/27/2025 12:53:24 5 text/html ROS as noted in the HPI Pt presents for f/u on Stress test Stress test 05/07/25:CONCLUSION: Please note due to baseline abnormality of the EKG specificityand sensitivity of the EKG portion of LexiScan MIBI stress test will be low1. EKG not suggestive of ischemia2. Lexiscan injection unremarkable.3. Perfusion scan will be documented separately.IMPRESSIONSLa rge area of old myocardial infarction surrounded by medium sized area of mildperi-infarct ischemia noted in the basal to distal inferior, inferolateralseptal and inferolateral suggestive of possible lesion in the circumflex or RCAdominant territory. ======= He c/o SOB Miriam Grant DO [address] [place] [address], [phone], [facility] 2025 11:54:16
--- OUTSIDE RECORDS SUMMARY | 2025-06-03 11:41 | XMS_ITS | Continuity of Care Document ---
Author Organization [facility] ([facility]) Address [address] [place] [address] Care Team Providers Care Physical Chemistry Professor Name Role Phone MIRIAM WELLS Primary Care Provider [facility] PULMONOLOGY - DATAR Pulmono logist BHUPINDER SIDDIQUI Cinder Pitman Assessment Encounter Date Assessment Date Assessment LastModified by Organization Details LastModified Time 05/23/2025 05/23/2025 Document scribed by Rony Puente [employer]. I was present during interview and exam. I have reviewed and agree with above documentation . Dr. Miriam Wells. [email or web address] Not available 05/23/2025 12:22:22 Plan of Treatment Reminders Order Date Submit Date Provider Last Modified By Organization Details Last Modified Time Details Appointments None recorded. Lab None recorded. Referral cardiologis t referral [address], [address] [place] [address] [address], [address], 16:44:07 Procedures None recorded. Surgeries None recorded. Imaging None recorded. Medication Orders None recorded. Patient TargetsNo targets recorded. Patient InstructionsNo instructions recorded. Reason for Referral Cinder Pitman Referral for Is chemic heart disease Referring Physician: Miriam Wells, Family Medicine, Encounter Date: 05/23/2025 Results Created Date Observation Date Name Description Value Unit Range Abnormal Flag Note LastModifiedBy Organization Detail LastModifiedTime 05/10/20 25 05/10/2025 MRI, brain + brain stem, w/wo contr ast No observ ation record ed. [facility] [address] [place], [address], 05/21/2025 18:31:19 05/13/2005/07/2025 nucle ar stres s test No observ ation record ed. [facility] [address] [place], [address], 05/21/2025 18:33:44 05/16/2005/07/2025 nucle ar stres s test No observ ation record ed. [facility] [address] [place], [address], 05/24/2025 17:51:05 Result Notes None recorded. Problems Name Problem SNOMED Code Status Onset Date Resolution Date Notes Provider Name and Address Organization Details Recorded Time Edema of lower extremity 393784457 Active 2022 Miriam Wells, [address], [address], [facility], LAlexanderLAlexanderCAleaxnder 3 09:44:28 Essential hypertensio n 35954142 Active 2022 Miriam Wells, [address], [address], [facility], L.LAlexanderCAlexander 3 09:02:27 Essential tremor 754116695 Active 2022 Miriam Wells, [address], [address], [facility], L.LAlexanderCAlexander 3 09:44:30 Severe chronic obstructive pulmonary disease 654394491 Active 2022 Miriam Wells [address], [address], [facility], LAlexanderLAlexanderCAlexander 3 09:44:31 History of cerebrovasc ular accident 533989107 Active 2022 Miriam Wells, DO [address] [place] [address], [address], [facility] 3 09:44:32 Muscle weakness 05429610 Active 2022 Miriam Wells, [address], [address], [facility] 3 09:44:34 Obstructive sleep apnea of adult 1377426636502 Active 2022 Miriam Wells, [address], [address] [place] [address] 5, [facility] 3 09:44:35 Peripheral vascular disease 519768918 Active 2022 Miriamesthela Wells [address], [address] [place] [address] 5, [facility] 3 09:44:37 Idiopathic peripheral neuropathy 77844788 Active 2022 Miriam Wells [address], [address], [facility] 3 09:44:38 Acute stroke 9556581985890 04 Active 2022 Miriamesthela Wells [address], [address], [facility] 3 08:52:41 Inflamed seborrheic keratosis 654830814 Active 2022 Miriamesthela Wells [address], [address], [facility] 3 09:04:34 Allergic rhinitis 03699534 Active 2022 Miriamesthela Wells [address], [address], [facility] 3 09:04:37 Lesion of skin of nose 0458829388691 9103 Active 2022 Miriam Wells, [address], [address], [facility] 3 10:00:24 Chronic obstructive pulmonary disease 71361457 Active 2022 Miriam Wells, [address], [address], [facility] 3 10:52:30 Excessive salivation 84246412 Active 2022 Miriam Wells, [address], [address], [facility] 3 11:37:55 Impacted cerumen of bilateral ears 1680447711490 108 Active 2023 Miriam Wells, [address], [address], [facility] 4 08:14:57 Acute-on-ch ronic respiratory failure 97727782 Active 2023 Miriam Wells [address], [address], [facility] 4 08:56:36 Inflammator y dermatosis 113794207 Active 2023 Sanjay Redding MD [address] [place] [address], [address], [facility] 4 08:24:13 Bronchiecta sis 17261665 Active [address] chest 4 Miriam Wells, [address], [address], [facility] 4 14:21:29 Atheroscler osis of aorta 53347809 Active [address] Miriam Wells DO [address] [place] [address], [address], [facility] 4 14:20:42 Spontaneous ecchymosis 224734842 Active 2023 Miriam Wells [address], [address], [facility] 4 13:17:03 Traumatic oral hemorrhagic bulla 229918103 Active 2024 Miriam Wells [address], [address], [facility] 5 16:46:06 Chronic respiratory failure 62743230 Active 2024 Miriam Wells [address], [address], [facility] 16:57:24 Acute pharyngitis 050959792 Active 2024 Miriam Wells [address], [address], [facility] 5 18:44:26 Dehydration 55853215 Active 2024 Miriam Wells [address], [address], [facility] 17:13:27 Problem Notes None recorded. Procedures Surgical History Date Name Laterality Status Provider Name and Address Organization Details Recorded Time 09/27/19 24 Cerumen Removal-Irrigati on completed Miriam Wells [address], [address], [facility], Aram 09/29/2023 08:14:03 12/02/19 23 jr luis felipe painter completed Miriam Wells DO [address] [place] [address], [address], [facility], Aram 12/01/2022 09:05:31 stomach ulcer excision completed [facility], Aram 05/11/2024 08:15:54 repair of joint of right knee completed [facility], Aram 05/11/2024 08:16:17 Shoulder joint surgery completed [facility], Aram 05/11/2024 08:16:41 appendectomy completed [facility], Aram 05/11/2024 08:16:54 extraction of cataract completed RACHEL ELLISON [facility], Florencio[place]lexanderCAlexander 04/26/2023 11:31:25 Imaging Results None recorded. Procedure [...] daily for leg swelling 03/24 completed DM/sd; 77796; Recorded 08/26/19 2:24PM by Alma Rosa Rojas (Authori zed through Miriam Wells DO), Annotati on/Adden dum; Refill Quantity : 0; Not Available Not Available Not Available Budesonid e (Inhalati on) 0.5mg per 2 ml. BID # 60, refill 11 06/28 completed Not Available Not Available Not Available metoprolo l succinate daily 03/24 completed 0; Recorded 09/29/19 23 2:44PM by Laurie Englsih, Office Visit; Not Available Not Available Not [...] Available Anoro Ellipta daily 03/24 completed DM/sd; 74843; Recorded 04/20/20 22 12:36PM by Alma Rosa Rojas (Dru chester through Miriam Wells DO), Office Visit; Refill Quantity : 1; Each; Not Available Not Available Not Available Trelegy Ellipta 100 mcg-62.5 mcg-25 mcg powder for [...] completed Not Available Not Available Not Available Wixela Inhub 500 mcg-50 mcg/dose powder for inhalatio n one puff two times daily 04/26 completed Not Available Not Available Not Available Wixela Inhub 03/24 completed 0; Recorded 09/29/19 23 2:44PM by Laurie English, Office Visit; Not Available Not Available Not Available Candiztri Aerospher e 160 mcg-9mcg- 4.8mcg/ac tuation HFA [...] Updated DateTime 5 182.88 cm 23.9 kg/m2 48504.9 6 g 95 % 81 /min 18 /min 122/78 mm[Hg] Luda Fernandez [facility] 5 11:55:29 Social History Question Answer Notes LastModified by [employer] Details LastModified Time Tobacco Smoking Status Former Smoker RACHEL bunch, [facility] 04/26/2023 11:31:06 What Was The Date Of Your Most Recent Tobacco Screening? 04/19/2025 [email or web address] Information not available 04/19/2025 Sex: Unknown Functional Status Question Answer Note LastModified by [employer] Details LastModified Time Do you use any illicit or recreational drugs? No Information not available 11/03/2022 Do you or have you ever used any other forms of tobacco or nicotine? No [email or web address] Information not available 11/03/2022 What is your level of alcohol consumption? None [email or web address] Information not available 11/03/2022 Mental Status None recorded. Family History Relationship Description Onset Age of this Age Resolved Age Notes LastModified by Organization Details LastModified Time Mother Diabetes mellitus brothe r and sister [email or web address] Not available 04/26/2023 11:30:03 Mother Transient cerebral ischemia [email or web address] Not available 04/11 11:30:12 Brother Malignant melanoma of skin [email or web address] Not available 04/11 11:30:33 Sister Malignant neoplasm of uterus [email or web address] Not available 04/11 11:30:44 Medical History Condition Response Coronary Artery Disease N Other N Gout N Kidney Stones N Blood Diseases N Hyperthyroidism N Breast Cancer N Blood Transfusion N Hypothyroidism N Lung Disease N COPD Y Depression N Defects or Inherited Disease N Developmental or Behavioral Disorders N Breast Problem N Difficulty Swallowing N [...] N Heart Disease N Pulmonary Embolism N Chronic Ear Infections N Pre-Eclampsia N Hypertension N Chicken Pox N Autism Spectrum Disorder (ASD) N Osteoporosis N Thrombophilias N Past Encounters Encounter ID Performer Location Encounter Start Date Encounter Closed Date Diagnosis/Indication Diagnosis SNOMED-CT Code Diagnosis ICD10 Code Diagnosis IMO Codes Diagnosis Note [id number] Miriam Wells DO [facility] ([facility]) [address] [place] [address] 04/24/2025 09:07:24 04/30/2025 10:46:19 Dyspnea 728440429 R06.00 [id number] 04/24/25: Counseled stress test. Contact dermatitis 25132 004 L25.9 [id number] 04/24/25: Unknown trigger, only on the left side of the body. Will treat with topical. Counseled on diagnosis, treatment options including medication s and possible side effects. History of cerebrovascular accident 295839218 Z86.73 [id number] 04/24/25: Counseled MRI Brain. Atheroscle rosis of aorta 59844564 I70.0 04/24/25: Stress test today. [id number] Miriam Wells DO [facility] ([facility]) [address] [place] [address] 05/23/2025 10:57:25 2025 15:05:31 Ischemic heart disease 359405528 I25.9 [id number] 05/23/25: Reviewed and discussed recent stress test, will refer to Cardio for Angiogram. Pt ok with [facility] locally. Health Concerns Section Related Observation LastModified by Organization Detai ls LastModified Time None Recorded Concern Status LastModified by Organization Details LastModified Time None Recorded Payers Encounter Date Sequence Insurance Name Policy Number Policy Jenkins Covered Member ID Jenkins Member ID Guarantor Name 05/23/2025 1 [place]: [employer] Lyndsay Perea [id number] Marcel Perea 05/23/2025 2 [employer] (MEDICARE SUPPLEMENT) Marcel Perea [id number] Marcel Perea Notes Date Note Type Note Provider Name and Address Organization Details Recorded Time 05/23/2025 text/html ROS as noted in the HPI Pt presents for f/u on Stress test Stress test 05/07/25:CONCLUSION: Please note due to baseline abnormality of the EKG specificityand sensitivity of the EKG portion of LexiScan MIBI stress test will be low1. EKG not suggestive of ischemia2. Lexiscan injection unremarkable.3. Perfusion scan will be documented separately.IMPRESSIO NSLarge area of old myocardial infarction surrounded by medium sized area of mildperi-infarct ischemia noted in the basal to distal inferior, inferolateralseptal and inferolateral suggestive of possible lesion in the circumflex or RCAdominant territory. He c/o SOB Miriam Wells, DO [address] [place] [address], [phone], [facility] 11:54:16
--- OUTSIDE RECORDS SUMMARY | 2025-06-03 11:41 | XMS_ITS | Continuity of Care Document ---
Author Organization [facility] - Pop Begum [facility], L.L.CAlexander, [facility] ([facility]) Address [address] [place] [address] Care Team Providers Care Java Web Architect Name Role Phone MIRIAM WELLS Primary Care Provider [facility] PULMONOLOGY - DATAR Pulmono logist BHUPINDER SIDDIQUI Oven Dauber Assessment Encounter Date Assessment Date Assessment LastModified by Organization Details LastModified Time 04/24/2025 04/24/2025 Document scribed by Rony Puente Rotary Drier Feeder. I was present during interview and exam. I have reviewed and agree with above documentation . Dr. Miriam Wells. [email or web address] Not available 04/24/2025 10:57:17 Plan of Treatment Reminders Order Date Submit Date Provider Last Modified By Organization Details Last Modified Time Details Appointments None recorded. Lab None recorded. Referral None recorded. Procedures None recorded. Surgeries None recorded. Imaging MRI, brain + brain stem, w/wo contrast 2024 [facility], [address] [place], [address], 16:52:59 nuclear stress test 2024 [facility], [address] [place], [address], 09:44:42 Medication Orders triamcinolo ne acetonide 0.5 % topical ointment 2024 [email or web address] 47 [facility], [address], [place], [address], 18:36:28 Patient TargetsNo targets recorded. Patient InstructionsNo instructions recorded. Reason for Referral None Reported. Results Created Date Observation Date Name Description Value Unit Range Abnormal Flag Note LastModifiedBy Organization Detail LastModifiedTime 05/10/2005/10/2025 MRI, brain + brain stem, w/wo contr ast No observ ation record ed. [facility] [address] [place], [address], 05/21/2025 18:31:19 05/13/2005/07/2025 nucle ar stres s test No observ ation record ed. [facility] [address] [place], [address], 05/21/2025 18:33:44 05/16/2005/07/2025 nucle ar stres s test No observ ation record ed. [facility] [address] [place], [address], 05/24/2025 17:51:05 Result Notes None recorded. Problems Name Problem SNOMED Code Status Onset Date Resolution Date Notes Provider Name and Address Organization Details Recorded Time Edema of lower extremity 164810159 Active 2022 Miriam Wells DO [address] [place] [address], [address], [facility] 3 09:44:28 Essential hypertensio n 03407693 Active 2022 Miriam Wells DO [address] [place] [address], [address], [facility] 3 09:02:27 Essential tremor 944446475 Active 2022 Miriam Wells DO [address] [place] [address], [address], [facility] 3 09:44:30 Severe chronic obstructive pulmonary disease 937009459 Active 2022 Miriam Wells, [address], [address], [facility], L.L.CAlexander 3 09:44:31 History of cerebrovasc ular accident 620110397 Active 2022 Miriam Wells, [address], [address], [facility], L.L.CAlexander 3 09:44:32 Muscle weakness 16344247 Active 2022 Miriam Wells, [address], [address], [facility], L.L.CAlexander 3 09:44:34 Obstructive sleep apnea of adult 1145185404169 Active 2022 Miriam Wells, [address], [address], [facility] 3 09:44:35 Peripheral vascular disease 836803035 Active 2022 Miriam Wells, [address], [address], [facility] 3 09:44:37 Idiopathic peripheral neuropathy 63718870 Active 2022 Miriam Wells, [address], [address], [facility] 3 09:44:38 Acute stroke 9931114715756 04 Active 2022 Miriam Wells [address], [address], [facility] 3 08:52:41 Inflamed seborrheic keratosis 876187889 Active 2022 Miriam Wells, [address], [address] [place] [address] 5, [facility] 3 09:04:34 Allergic rhinitis 58643557 Active 2022 Miriam Wells, [address], [address] [place] [address] 5, [facility] 3 09:04:37 Lesion of skin of nose 1668534467290 9103 Active 2022 Miriam Wells, [place] [address] 5, [facility] 3 10:00:24 Chronic obstructive pulmonary disease 70539284 Active 2022 Miriam Wells [address], [address] [place] [address] 5, [facility] 3 10:52:30 Excessive salivation 41295936 Active 2022 Miriam Wells [address], [address] [place] [address] 5, [facility] 3 11:37:55 Impacted cerumen of bilateral ears 4002135277713 108 Active 2023 Miriam Wells [address], [address] [place] [address] 5, [facility] 4 08:14:57 Acute-on-ch ronic respiratory failure 87148212 Active 2023 Miriam Wells [address], [address] [place] [address] 5, [facility] 4 08:56:36 Inflammator y dermatosis 223540674 Active 2023 Sanajy Redding MD [address] [place] [address], [address] [place] [address] 5, [facility] 4 08:24:13 Bronchiecta sis 64148768 Active [address] chest Miriam Wells, DO [address] [place] [address], [address] [place] [address] 5, [facility] 4 14:21:29 Atheroscler osis of aorta 68533616 Active [address] Miriam Wells [address], [address] [place] [address] 5, [facility] 4 14:20:42 Spontaneous ecchymosis 438264322 Active 2023 Miriam Wells DO [address] [place] [address], [address] [place] [address] 5, [facility] 4 13:17:03 Traumatic oral hemorrhagic bulla 224930236 Active 2024 Miriam Wells [address], [address] [place] [address] 5, [facility] 5 16:46:06 Chronic respiratory failure 91919922 Active 2024 Miriam Wells DO [address] [place] [address], [address] [place] [address] 5, [facility] 5 16:57:24 Acute pharyngitis 459202020 Active 2024 Miriam Wells DO [address] [place] [address], [address] [place] [address] 5, [facility] 5 18:44:26 Dehydration 94685453 Active 2024 Miriam Wells, [address], [address], [facility], LAlexanderLHeidi 17:13:27 Problem Notes None recorded. Procedures Surgical History Date Name Laterality Status Provider Name and Address Organization Details Recorded Time 09/27/19 24 Cerumen Removal-Irrigati on completed Miriam Wells, [address], [address], [facility], L.LAlexanderCAlexander 09/29/2023 08:14:03 12/02/19 23 jr cryo warts completed Miriam Michelon, [address], [address], [facility], L.L.CAlexander 12/01/2022 09:05:31 stomach ulcer excision completed [facility], L.LAlexanderCAlexander 05/11/2024 08:15:54 repair of joint of right knee completed [facility], L.L.CAlexander 05/11/2024 08:16:17 Shoulder joint surgery completed [facility], L.L.CAlexander 05/11/2024 08:16:41 appendectomy completed [facility], L.L.CAlexander 05/11/2024 08:16:54 extraction of cataract completed RACHEL ELLISON [facility], L.LAlexanderCAlexander 04/26/2023 11:31:25 Imaging Results None recorded. Procedure [...] daily for leg swelling 03/24 completed DM/sd; 94845; Recorded 08/26/19 23 2:24PM by Alma Rosa Rojas (Authori henrik through Miriam Wells DO), Annotati on/Adden dum; [...] Available Anoro Ellipta daily 03/24 completed DM/sd; 35543; Recorded 04/20/20 12:36PM by Alma Rosa Rojas (i henrik through Miriam Wells DO), Office Visit; Refill [...] Visit; Not Available Not Available Not Available [employer]osp[employer] e 160 mcg-9mcg- 4.8mcg/ac tuation HFA [...] and Address Organization Details Last Updated DateTime 182.88 cm 24.1 kg/m2 05979.6 5 g 18 /min 95 % 82 /min 130/80 mm[Hg] Luda Fernandez [facility] 10:40:33 Social History Question Answer Notes LastModified by Organizat Whim Details LastModified Time Tobacco Smoking Status Former Smoker RACHEL bunch [facility] 04/26/2023 11:31:06 What Was The Date Of Your Most Recent Tobacco Screening? 04/19/2025 [email or web address] Information not available 04/19/2025 Sex: Unknown Functional Status Question Answer Note LastModified by Organizat Whim Details LastModified Time Do you use any illicit or recreational drugs? No [email or web address] Information not available 11/03/2022 Do you or have you ever used any other forms of tobacco or nicotine? No [email or web address] Information not available 11/03/2022 What is your level of alcohol consumption? None [email or web address] Information not available 11/03/2022 Mental Status None recorded. Family History Relationship Description Onset Age of this Age Resolved Age Notes LastModified by Organization Details LastModified Time Mother Diabetes mellitus brothe r and sister [email or web address] Not available 04/26/2023 11:30:03 Mother Transient cerebral ischemia [email or web address] Not available 04/11 11:30:12 Brother Malignant melanoma of skin [email or web address] Not available 04/11 11:30:33 Sister Malignant neoplasm of uterus [email or web address] Not available 04/11 11:30:44 Medical History Condition Response Coronary Artery Disease N Other N Gout N Kidney Stones N Blood Diseases N Hyperthyroidism N Breast Cancer N Blood Transfusion N Hypothyroidism N Lung Disease N COPD Y Depression N Defects or Inherited Disease N Developmental or Behavioral Disorders N Breast Problem N Difficulty Swallowing N Anesthesia Complications N Anxiety Disorder N Meniere's disease N Muscle, Joint, or Bone Problems N Vision or Eye Problems Y Arthritis N Infertility N Polyps N Cancer N Stroke Y Varicosities N Endometriosis N Bladder or Kidney Problems N High Cholesterol Y Liver Disease N Fibromyalgia N Headaches N Kidney Disease N Allergies/Hayfever N Heart [...] ICD10 Code Diagnosis IMO Codes Diagnosis Note [id number] MAGDY BUITRAGO APRN [facility] ([facility]) [address] [place] [address] 04/19/2025 15:27:53 04/19/2025 16:46:45 Asthenia 70066178 R53.1 64575 Dizziness 252570140 R42 27530 Senile purpura 60310967 D69.2 97459 Unsteady when walking 22 871164 R26.81 [id number] Miriam Wells DO [facility] ([facility]) [address] [place] [address] 04/24/2025 09:07:24 04/30/2025 10:46:19 Dyspnea 068837301 R06.00 79346954 04/24/25: Counseled stress test. Contact dermatitis 81745 004 L25.9 45221298 04/24/25: Unknown trigger, only on the left side of the body. Will treat with topical. Counseled on diagnosis, treatment options including medication s and possible side effects. History of cerebrovascular accident 003602878 Z86.73 205557 04/24/25: Counseled MRI Brain. Atheroscle rosis of aorta 71472107 I70.0 04/24/25: Stress test today. Health Concerns Section Related Observation LastModified by Organization Detai ls LastModified Time None Recorded Concern Status LastModified by Organization Details LastModified Time None Recorded Payers Encounter Date Sequence Insurance Name Policy Number Policy Jenkins Covered Member ID Jenkins Member ID Guarantor Name 04/24/2025 1 [place] [employer] Lyndsay Perea [id number] Marcel Perea 04/24/2025 2 [employer] (MEDICARE SUPPLEMENT) Marcel Perea [id number] Marcel Perea Notes Date Note Type Note Provider Name and Address Organization Details Recorded Time 5 text/html ROS as noted in the HPI Pt presents for [place] f/u He was seen on 04/19/25 walk inx 2 days discoloration to left arm without injury, unsteady gait, word searching, confusion- Hx small stroke Plan at visit:1. VhdixqnoB94.1: WeaknessPHYSICAL THERAPY*2. MxcqlupypR93: Dizziness and giddiness3. Senile rxmzbzgE91.2: Other nonthrombocytopenic purpura4. Unsteady gait when tqhzziyQ20.81: Unsteadiness on feetDiscussion NotesWalked with patient to assess gait and steadiness. We discussed follow up with Dr Wells for concerns about his heart since his had a [place] and concerns about his memory. In the meantime, read, do memory games and puzzles. Follow up for concerns prior to appointment. === He admits that Wednesday 2 weeks ago ( 04/09/25) his had KS. He is concerned that he needs checked [...] normal CT Head.Pt with h/o CVA. Miriam Wells, DO [address] [place], [address], [facility], Aram 04/27/2025 12:53:24
--- OUTSIDE RECORDS SUMMARY | 2025-06-03 11:41 | XMS_ITS | Continuity of Care Document ---
Author Organization [facility] - Pop Begum [facility], L.L.CAlexander, [facility] ([facility]) Address [address] [place] [address] Care Team Providers Care Lead Pharmacy Technician Name Role Phone MIRIAM WELLS Primary Care Provider [facility] Pulmono logist BHUPINDER SIDDIQUI Tooling Manager Assessment No assessment recorded. Plan of Treatment Reminders Order Date Submit Date Provider Last Modified By Organization Details Last Modified Time Details Appointments None record ed. Lab None record ed. Referral None record ed. Procedures None record ed. Surgeries None record ed. Imaging None record ed. Medication Orders None record ed. Patient TargetsNo targets recorded. Patient Instructions Encounter Date Encounter Id Patient Instructions Last Modified By Organization Details Last Modified Time 04/19/2025 [id number] physical therapy* [email or web address] Not availa ble 04/26/2025 14:00:45 Walked with patient to assess gait and steadiness. We discussed follow up with Dr Wells for concerns about his heart since his had a [place] and concerns about his memory. In the meantime, read, do memory games and puzzles. Follow up for concerns prior to appointment. [email or web address] Not available 04/19/2025 16:05:12 Reason for Referral None Reported. Results Created Date Observation Date Name Description Value Unit Range Abnormal Flag Note LastModifiedBy Organization Detail LastModifiedTime 05/10/20 25 05/10/2025 MRI, brain + brain stem, w/wo contr ast No observ ation record ed. [facility] [address] [place], [address], 05/21/2025 18:31:19 05/13/2005/07/2025 nucle ar stres s test No observ ation record ed. [facility] [address] [place], [address], 05/21/2025 18:33:44 05/16/2005/07/2025 nucle ar stres s test No observ ation record ed. [facility] [address] [place], [address], 05/24/2025 17:51:05 Result Notes None recorded. Problems Name Problem SNOMED Code Status Onset Date Resolution Date Notes Provider Name and Address Organization Details Recorded Time Edema of lower extremity 300551932 Active 2022 Miriam Wells [address], [address], [facility], L.LAlexanderCAlexander 3 09:44:28 Essential hypertensio n 74074842 Active 2022 Miriam Wells [address], [address], [facility], L.LAlexanderC. 3 09:02:27 Essential tremor 011451478 Active 2022 Miriam Wells [address], [address], [facility], L.LAlexanderCAlexander 3 09:44:30 Severe chronic obstructive pulmonary disease 857610230 Active 2022 Miriam Wells [address], [address], [facility], L.LAlexanderC. 3 09:44:31 History of cerebrovasc ular accident 996890202 Active 2022 Miriam Wells [address], [address], [facility], Clarissa.C. 3 09:44:32 Muscle weakness 68005976 Active 2022 Miriam Wells, [address], [address] [place] [address], [facility] 3 09:44:34 Obstructive sleep apnea of adult 3649829956544 Active 2022 Miriam Wells, [address], [address] [place] [address] [address], [facility] 3 09:44:35 Peripheral vascular disease 754620997 Active 2022 Miriam Wells, [address], [address] [place] [address], [facility] 3 09:44:37 Idiopathic peripheral neuropathy 08053431 Active 2022 Miriamesthela Wells, [address], [address] [place] [address], [facility] 3 09:44:38 Acute stroke 1170333215180 04 Active 2022 Miriam Wells, [address], [address] [place] [address], [facility] 3 08:52:41 Inflamed seborrheic keratosis 026424820 Active [address], [address] [place] [address] [address], [facility] 3 09:04:34 Allergic rhinitis 19313840 Active 2022 Miriamesthela Wells, [address], [address] [place] [address], [facility] 3 09:04:37 Lesion of skin of nose 6422830362950 9103 Active 2022 Miriam Wells [address], [address] [place] [address] [address], [facility] 3 10:00:24 Chronic obstructive pulmonary disease 40758642 Active 2022 Miriam Wells [address], [address] [place] [address] [address], [facility] 3 10:52:30 Excessive salivation 28199294 Active 2022 Miriam Wells, [address], [address] [place] [address] [address], [facility] 3 11:37:55 Impacted cerumen of bilateral ears 3610794088015 108 Active 2023 Miriam Wells [address], [address] [place] [address] [address], [facility] 4 08:14:57 Acute-on-ch ronic respiratory failure 16910908 Active 2023 Miriam Wells [address], [address] [place] [address] [address], [facility] 4 08:56:36 Inflammator y dermatosis 013606509 Active 2023 Sanjay Redding MD [address] [place] [address], [address] [place] [address] [address], [facility] 4 08:24:13 Bronchiecta sis 93258262 Active [address] chest 4 Miriam Wells [address], [address] [place] [address] [address], [facility] 4 14:21:29 Atheroscler osis of aorta 23008713 Active [address] Miriam Wells DO [address] [place] [address], [address], [facility] 4 14:20:42 Spontaneous ecchymosis 497948302 Active 2023 Miriam Wells [address], [address], [facility] 4 13:17:03 Traumatic oral hemorrhagic bulla 012358460 Active 2024 Miriam Wells [address], [address], [facility] 16:46:06 Chronic respiratory failure 10648864 Active 2024 Miriam Wells [address], [address], [facility] 16:57:24 Acute pharyngitis 852688827 Active 2024 Miriam Wells [address], [address], [facility] 18:44:26 Dehydration 00577117 Active 2024 Miriam Wells [address], [address], [facility] 17:13:27 Problem Notes None recorded. Procedures Surgical History Date Name Laterality Status Provider Name and Address Organization Details Recorded Time 09/27/19 24 Cerumen Removal-Irrigati on completed Miriam Wells DO [address] [place] [address], [address], [facility] 09/29/2023 08:14:03 12/02/19 23 jr cryo warts completed Miriam Wells DO [address] [place], [address], [facility], Aram 12/01/2022 09:05:31 stomach ulcer excision completed [facility], Aram 05/11/2024 08:15:54 repair of joint of right knee completed [facility], Aram 05/11/2024 08:16:17 Shoulder joint surgery completed [facility], Aram 05/11/2024 08:16:41 appendectomy completed [facility], Aram 05/11/2024 08:16:54 [facility] 11:31:25 Imaging Results None recorded. [...] daily for leg swelling 03/24 completed DM/sd; 35733; Recorded 08/26/19 23 2:24PM by Alma Rosa Rojas (Authori stephanied through Miriam Wells DO), Annotati on/Adden dum; Refill Quantity : 0; Not Available Not Available Not Available Budesonid e (Inhalati on) 0.5mg per 2 ml. BID # 60, refill 11 06/28 completed Not Available Not Available Not Available metoprolo l succinate daily 03/24 completed 0; Recorded 09/29/19 23 2:44PM by Laurie Enlgish, Office Visit; Not Available Not Available Not [...] Available Anoro Ellipta daily 03/24 completed DM/sd; 41181; Recorded 04/20/20 12:36PM by Alma Rosa Rojas (Dru chester [...] Organization Details Last Updated DateTime 182.88 cm 24 kg/m2 73257.8 5 g 96 % 85 /min 98.2 [degF] 140/80 mm[Hg] Hayde Lyon [facility] 15:36:56 Social History Question Answer Notes LastModified by Displair Details LastModified Time Tobacco Smoking Status Former Smoker RACHEL ELLISON alivia [facility] 04/26/2023 11:31:06 What Was The Date Of Your Most Recent Tobacco Screening? 04/19/2025 [email or web address] Information not available 04/19/2025 Sex: Unknown Functional Status Question Answer Note LastModified by Displair Details LastModified Time Do you use any illicit or recreational drugs? No [email or web address] Information not available 11/03/2022 Do you or have you ever used any other forms of tobacco or nicotine? No [email or web address] Information not available 11/03/2022 What is your level of alcohol consumption? None [email or web address] Information not available 11/03/2022 Mental Status None recorded. Family History Relationship Description Onset Age of this Age Resolved Age Notes LastModified by Organization Details LastModified Time Mother Diabetes mellitus brothe r and sister [email or web address] Not available 04/26/2023 11:30:03 Mother Transient cerebral ischemia [email or web address] Not available 04/11 11:30:12 Brother Malignant melanoma of skin [email or web address] Not available 04/11 11:30:33 Sister Malignant neoplasm of uterus [email or web address] Not available 04/11 11:30:44 Medical History Condition Response Coronary Artery Disease N Other N Gout N Kidney Stones N Blood Diseases N Hyperthyroidism N Breast Cancer N Blood Transfusion N Hypothyroidism N Depression N COPD Y Lung Disease N Defects or Inherited Disease N Developmental [...] ICD10 Code Diagnosis IMO Codes Diagnosis Note [id number] MAGDY BUITRAGO APRN [facility] ([facility]) [address] [place] [address] 04/19/2025 15:27:53 04/19/2025 16:46:45 Asthenia 29222185 R53.1 79868 Dizziness 630956154 R42 78827 Senile purpura 10381020 D69.2 49230 Unsteady when walking 22 033238 R26.81 [id number] Health Concerns Section Related Observation LastModified by Organization Detai ls LastModified Time None Recorded Concern Status LastModified by Organization Details LastModified Time None Recorded Payers Encounter Date Sequence Insurance Name Policy Number Policy Jenkins Covered Member ID Jenkins Member ID Guarantor Name 04/19/2025 1 MED[place]ARE [place]: [facility] Lyndsay Perea [id number] Marcel Perea 04/19/2025 2 [employer] (MEDICARE SUPPLEMENT) Marcel Perea [id number] Marcel Perea Notes Date Note Type Note Provider Name and Address Organization Details Recorded Time 04/19/2025 text/html walk inx 2 days discoloration to left arm without injury, unsteady gait, word searching, confusion- Hx small stroke MAGDY BUITRAGO APRN [address] [place], [address], [facility] 04/19/2025 16:07:44
--- OUTSIDE RECORDS SUMMARY | 2025-06-03 11:41 | XMS_ITS | Clinical Summary ---
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
--- NOTE | 2025-06-03 11:43 | ECG_ITS ---
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 Measurements Intervals [place] Rate: 103 P: 60 DE: 180 QRS: 45 QRSD: 95 T: 59 QT: 327 QTc: 430 Interpretive Statements SINUS TACHYCARDIA WITH FREQUENT VENTRICULAR PREMATURE COMPLEXES NONSPECIFIC ST & T-WAVE ABNORMALITY ABNORMAL RHYTHM ECG Compared to ECG 11/12/2022 22:08:47 Ventricular premature complex(es) now present T-wave abnormality now present Electronically Signed On 06-03-2025 17:14:27 CIRCULATING NURSE by Meg Lynch M.D. [id number]
--- NOTE | 2025-06-03 12:11 | XRR_ITS ---
PROCEDURE INFORMATION: Exam: XR Chest Exam date and time: 06/03/2025 1:20 PM Age: 75 years old Clinical indication: Chest pain TECHNIQUE: Imaging protocol: Radiologic exam of the chest. Views: 1 view. COMPARISON: CT chest con [id number] 05/16/2024 8:38 AM FINDINGS: Lungs: Subsegmental basilar opacities, likely atelectasis. Pleural spaces: Unremarkable. No pleural effusion. No pneumothorax. Heart/Mediastinum: Unremarkable. No cardiomegaly. Bones/joints: Unremarkable. XR/XR chest 1V portable [id number] IMPRESSION: No acute cardiopulmonary abnormality.
[2025-06-03 12:48] LABS: Troponin(5th) Baseline 19 ng/L (0-15)
[2025-06-03 13:21] LABS: Hematocrit 39.7 % (37-53); Hemoglobin 13.10 g/dL (11.27-16.99); Mean Corpuscular HGB Conc 33.0 g/dL (30-55); Mean Corpuscular Hemoglobin 31.5 pg (27-33); Mean Corpuscular Volume 95.4 fl (82-101); Nucleated Red Blood Cells % 0 %; Platelet Count 232 10^3/cmm (157-399); Red Blood Count 4.16 10^6/uL (3.85-5.65); White Blood Count 6.98 10^3/uL (3.29-11.43)
[2025-06-03 13:30] VITALS: BP 138/81; PULSE 72; RESP 19; O2SAT 94
[2025-06-03 13:44] LABS: Alanine Aminotransferase 14 U/L (0-41); Albumin Level 4.0 g/dL (3.5-5.2); Alkaline Phosphatase 76 U/L (40-130); Anion Gap 13.7 (5-19); Aspartate Amino Transferase 17 U/L (0-40); Blood Urea Nitrogen 17 mg/dL (8-23); Calcium 9.0 mg/dL (8.5-10.5); Carbon Dioxide 23 mmol/L (22-29); Chloride 109 mmol/L (98-107); Creatinine Clr Calc Pharmacy 89.7320; Globulin 2.8 g/dL (1.3-4.6); Glucose 117 mg/dL (65-115); NT Pro B Type Natriuretic Pept 1215 pg/mL (0-125); Osmolality Calculated 297 mOsm/kg (285-295); Potassium 3.7 mmol/L (3.5-5.1); Sodium 142 mmol/L (136-145); Total Protein 6.8 g/dL (6.6-8.7)
--- NOTE | 2025-06-03 13:50 | ECG_ITS ---
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 Measurements Intervals [place] Rate: 70 P: 37 CT: 220 QRS: 15 QRSD: 89 T: 43 QT: 406 QTc: 439 Interpretive Statements SINUS RHYTHM WITH FIRST DEGREE AV BLOCK WITH OCCASIONAL VENTRICULAR PREMATURE COMPLEXES Compared to ECG 06/03/2025 11:43:17 First degree AV block now present Sinus tachycardia no longer present T-wave abnormality no longer present Electronically Signed On 06-03-2025 17:33:02 NURSING MANAGER by Meg Lynch M.D. [email or web address] [email or web address]
[2025-06-03 14:00] VITALS: BP 139/86; PULSE 72; RESP 11; O2SAT 95
--- NOTE | 2025-06-03 14:00 | W.ED.CHESTPA ---
HPI - Chest Pain General: Chief Complaint: Chest Pain Stated Complaint: previous cp Time Seen by Provider: 06/03/25 13:11 Source: patient Mode of arrival: ambulatory Limitations: no limitations History of Present Illness: Patient is a 75-year-old male with past medical history of TIA, hypertension, CVA, and hyperlipidemia who presents the emergency department complaining of chest pain and shortness of breath episodically occurring today. States that he was outside when it began, was left chest and nonradiating. No alleviating or exacerbating factors noted, he states it spontaneously resolved and he is asymptomatic at this time. He had no other anginal equivalent symptoms such as diaphoresis, dizziness or lightheadedness, nausea, vomiting, or palpitations or syncope. He does note that overall recently he has felt somewhat unwell. He did recently undergo catheterization at the end of April, showing large area of old ID surrounded by medium sized area of mild dinesh-infarct ischemia noted in the basal to distal inferior, inferolateral septal and inferolateral suggestive of possible lesion in the circumflex or RCA territory. States he did not have any stents placed at that time. He is hemodynamically stable at this time, calm and cooperative. As mentioned he is asymptomatic. MD complaint: chest pain and other (Shortness of breath) Pertinent past history: coronary artery disease Onset (ago): hour(s) Timing of current episode: now resolved Prior episodes: Yes Onset: during exertion Pain location: left chest Pain radiation: none Severity: moderate Quality: tightness Associated symptoms: Reports dyspnea; Deny abdominal pain, fever(s), nausea, palpitations or vomiting Related Data Home Medications ?Medication ?Instructions ?Recorded ?Confirmed albuterol sulfate 90 mcg/actuation 2 puff inhalation Q6H PRN 10/12/22 11/14/24 aerosol inhaler lisinopril 20 mg tablet 20 mg PO DAILY 11/04/23 11/14/24 aspirin 81 mg tablet,delayed 81 mg PO DAILY 05/08/24 11/14/24 release (Adult Aspirin Regimen) fluticasone fur. 100 mcg-umeclid 1 inh inhalation DAILY 11/14/24 11/14/24 62.5 mcg-vilant 25 mcg inhalat.powder (Trelegy Ellipta) Allergies Allergy/AdvReac Type Severity Reaction Status Date / Time No Known Allergies Allergy Verified 06/03/25 11:48 Review of Systems General: Reports: 10 or more systems reviewed and unremarkable except in HPI and below Const: Denies: fever(s), chills or fatigue Eyes: Denies: change in vision ENMT: Denies: throat pain, ear or mastoid pain or nasal discharge Card: Reports: chest pain; Denies: palpitations, swelling of feet/ankles or lightheadedness Resp: Reports: dyspnea; Denies: productive cough or wheezing GI: Denies: abdominal pain, nausea, vomiting, diarrhea or constipation : Denies: flank pain, difficulty urinating, dysuria or urinary frequency Musc: Denies: neck pain, back pain or joint pain Skin/Breast: Denies: rash Neuro: Denies: headache(s), numbness in extremities or weakness in extremities PFSH ED PFSH: Medical History PAD (peripheral artery disease) TIA (transient ischemic attack) Hyperlipidemia HTN (hypertension) CVA (cerebral vascular accident) Family History Mother Diabetes Stroke Brother Diabetes Cancer Sister Diabetes Cancer Denies family history of CAD (coronary artery disease) Clotting disorder Dementia Chronic kidney disease (CKD) Suicide Anesthesia complication Bleeding disorder Lung disease Social History Smoking and tobacco/nicotine status: current every day tobacco/nicotine user e-cigarettes Second hand smoke exposure: Yes Alcohol intake: never Substance/Drug Use: never Lives independently: Yes Household members: spouse Marital status: service: No Current occupational status: employed Pets and animals: Yes Do you think of yourself as: Straight/Heterosexual Current gender identity: Male Physical Exam Const: COMMON NORMALS: no acute distress, patient oriented x3 and no limitations GENERAL APPEARANCE: cooperative, comfortable and well developed ORIENTATION/CONSCIOUSNESS: Yes awake, Yes oriented to person, Yes oriented to place and Yes oriented to time HENMT: COMMON NORMALS: normocephalic, atraumatic and hearing grossly normal bilaterally HEAD & SCALP: normocephalic and atraumatic Eye: COMMON NORMALS: Equal, round and reactive pupils present, EOMs intact bilaterally and conjunctivae normal CONJUNCTIVA: Yes conjunctivae normal PUPIL: Yes Equal, round and reactive pupils present Neck/C-Spine: COMMON NORMALS: full ROM, supple and no JVD Resp: COMMON NORMALS: normal respiratory effort, No retractions, No use of accessory muscles and clear to auscultation bilaterally AUSCULTATION: clear to auscultation bilaterally Cardio: COMMON NORMALS: no JVD, regular rate, regular rhythm, No clicks present (Cardio), No murmurs present (Cardio) and No rub (Cardio) RATE: regular rate RHYTHM: regular rhythm GI: COMMON NORMALS: Normal to inspection, nondistended, normoactive bowel sounds present, Soft to palpation and non-tender AUSCULTATION: Yes normoactive bowel sounds PALPATION: Yes Soft to palpation RECTAL EXAM: Yes deferred Extremity: COMMON NORMALS: normal to inspection, full ROM and capillary refill normal Neuro: COMMON NORMALS: patient oriented x3, moves all extremities, no focal motor deficits and no sensory deficits noted SENSORIUM/ORIENTATION: Yes oriented to person, Yes oriented to place and Yes oriented to time Psych: COMMON NORMALS: mental status grossly normal and Normal thought process present THOUGHT PROCESS: Normal thought process present Skin: COMMON NORMALS: no rashes or lesions noted GENERAL SKIN EXAM: no rashes or lesions noted Course Vital Signs: Vital signs: Vital Signs Temperature 97.4 F L 06/03/25 11:38 Pulse Rate 100 06/03/25 11:38 Blood Pressure 159/85 06/03/25 11:38 Pulse Oximetry 93 06/03/25 11:38 Oxygen Delivery Me thod Room Air 06/03/25 11:38 MDM - Chest Pain Medical Decision Making Patient presented for transient chest pain and shortness of breath that began while he was outside earlier today. He recently underwent cardiac cath showing old areas of infarction, but had no stents placed as there was no active blockage. Symptom-free here, physical exam was reassuring and he is hemodynamically stable. Chest x-ray negative, baseline and delta troponin unremarkable. Rest of his lab work is reassuring. States that he is set to follow-up with sales activity manager but has not been called yet, so I will place another referral so that he is able to follow-up regards to his pain. Being that he just had workup including the stress test and coronary cath, and patient's requesting to go home, will not admit at this time but did tell him if his pain persists past episodic, if it feels different, or if he has any other anginal equivalents to return immediately to the ED and we will evaluate and likely placed on observation. Patient agrees with this plan, and he will await call to schedule outpatient cardiac follow-up. Lab Data 06/03/25 12:17 06/03/25 12:17 Radiology Impressions Chest X-Ray 06/03/25 12:11 IMPRESSION: No acute cardiopulmonary abnormality. Laboratory Results WBC 6.98 10^3/uL (3.29-11.43) 06/03/25 12:17 RBC 4.16 10^6/uL (3.85-5.65) 06/03/25 12:17 Hgb 13.10 g/dL (11.27-16.99) 06/03/25 12:17 Hct 39.7 % (37-53) 06/03/25 12:17 MCV 95.4 fl (82-101) 06/03/25 12:17 MCH 31.5 pg (27-33) 06/03/25 12:17 MCHC 33.0 g/dL (30-55) 06/03/25 12:17 RDW 13.2 % (12.1-15.1) 06/03/25 12:17 Plt Count 232 10^3/cmm (157-399) 06/03/25 12:17 MPV 10.4 fL (7.4-10.4) 06/03/25 12:17 Neut % (Auto) 77.5 % 06/03/25 12:17 Lymph % (Auto) 12.6 % 06/03/25 12:17 [place] % (Auto) 8.2 % 06/03/25 12:17 Eos % (Auto) 1.0 % 06/03/25 12:17 Baso % (Auto) 0.4 % 06/03/25 12:17 Neut # (Auto) 5.41 10^3/uL (1.8-7.7) 06/03/25 12:17 Lymph # (Auto) 0.9 10^3/uL (0.8-4.8) 06/03/25 12:17 [place] # (Auto) 0.6 10^3/uL (0.2-0.9) 06/03/25 12:17 Eos # (Auto) 0.1 10^3/uL (0.0-0.8) 06/03/25 12:17 Baso # (Auto) 0.0 10^3/uL (0.0-0.1) 06/03/25 12:17 Nucleated RBC % (auto) 0 % 06/03/25 12:17 Nucleated RBCs # 0.0 /100WBC 06/03/25 12:17 Sodium 142 mmol/L (136-145) 06/03/25 12:17 Potassium 3.7 mmol/L (3.5-5.1) 06/03/25 12:17 Chloride 109 mmol/L (98-107) H 06/03/25 12:17 Carbon Dioxide 23 mmol/L (22-29) 06/03/25 12:17 Anion Gap 13.7 (5-19) 06/03/25 12:17 BUN 17 mg/dL (8-23) 06/03/25 12:17 Creatinine 0.8 mg/dL (0.7-1.2) 06/03/25 12:17 GFR Calculation Not Reportable 06/03/25 12:17 Glucose 117 mg/dL (65-115) H 06/03/25 12:17 Calculated Osmolality 297 mOsm/kg (285-295) H 06/03/25 12:17 Calcium 9.0 mg/dL (8.5-10.5) 06/03/25 12:17 Total Bilirubin 0.7 mg/dL (0.15-1.2) 06/03/25 12:17 AST 17 U/L (0-40) 06/03/25 12:17 ALT 14 U/L (0-41) 06/03/25 12:17 Alkaline Phosphatase 76 U/L (40-130) 06/03/25 12:17 Troponin T Baseline 19 ng/L (0-15) H 06/03/25 12:17 Troponin T 120 Minute 15.69 ng/L (0-15) H 06/03/25 13:59 Delta Troponin T -3.31 ABS# (0-10) L 06/03/25 13:59 NT-Pro-B Natriuret Pep 1215 pg/mL (0-125) H 06/03/25 12:17 Total Protein 6.8 g/dL (6.6-8.7) 06/03/25 12:17 Albumin 4.0 g/dL (3.5-5.2) 06/03/25 12:17 Globulin 2.8 g/dL (1.3-4.6) 06/03/25 12:17 All radiology interpretation(s) finalized by discharge Discharge Plan Discharge Patient Disposition: Home Clinical Impression: Chest pain Qualifiers: Chest pain type: unspecified Qualified Code(s): R07.9 - Chest pain, unspecified Condition: Stable Prescriptions: No Action albuterol sulfate 90 mcg/actuation HFA aerosol inhaler 2 puff inhalation Q6H PRN aspirin [Adult Aspirin Regimen] 81 mg tablet,delayed release (DR/EC) 81 mg PO DAILY lisinopril 20 mg tablet 20 mg PO DAILY Trelegy Ellipta 100-62.5-25 mcg blister with device 1 inh inhalation DAILY Discharge Orders: Discharge ED (Routine); Ordered 06/03/25 Ordered By: Scott Saucedo Referrals: Loki Wells DO [Primary Care Provider, Family Practice] Patient Instructions: Patient Portal & Radhames Instructions Activity Restrictions/Additional Instructions: Please follow-up with cardiology. Continue taking your home medications. If you have persistence of pain, if the pain changes in intensity, if you have shortness of breath, if you have any other new or concerning symptoms please return to the emergency department immediately for reevaluation. Print Language: Urdu Coding Level of Care Code ED Ocean Fishing Guide for Khushi Palmer Heart Score HEART Score Components History: Moderately Suspicious EKG: Normal Age: 65 or more yrs Risk Factors: 1 or 2 Risk Factors Troponin: Baseline Trop 16-45 ng/L HEART Score RESULT HEART Score: 5
[2025-06-03 14:27] LABS: Troponin 5 2HR 15.69 ng/L (0-15)
[2025-06-03 14:31] LABS: Troponin 5 2HR Delta -3.31 ABS# (0-10)
[2025-06-03 15:03] VITALS: BP 131/73; PULSE 63; O2SAT 96
--- NOTE | 2025-06-04 09:20 | DCPLANNER ---
messaged heart care for er f/u
== END 2025-06-03 15:04 | disposition home or self-care (01) ==
PROVIDERS: Emergency Medicine; Emergency Provider Physician Assistant; PCP Electrodiagnostic Medicine
DX: R07.9 Chest pain, unspecified (principal); Z79.82 Long term (current) use of aspirin; I73.9 Peripheral vascular disease, unspecified; I10 Essential (primary) hypertension; E78.5 Hyperlipidemia, unspecified; Z86.73 Personal history of transient ischemic attack (TIA), and cerebral infarction without residual deficits
CPT/HCPCS: 36415; 71045; 80053; 83880; 84484; 85025; 93005; 99285

== ENCOUNTER → 2025-06-25 08:16 | Outpatient (BNVA) | payer MEDICARE, OTHER, SELFPAY | PROVIDERS: PCP Electrodiagnostic Medicine; Referring Provider Physician Assistant; Visit Provider Nurse Practitioner Family | DX: I25.10 Atherosclerotic heart disease of native coronary artery without angina pectoris (principal); I25.2 Old myocardial infarction; R07.9 Chest pain, unspecified; I73.9 Peripheral vascular disease, unspecified; R06.00 Dyspnea, unspecified; Z51.89 Encounter for other specified aftercare; I10 Essential (primary) hypertension; E78.5 Hyperlipidemia, unspecified; F17.290 Nicotine dependence, other tobacco product, uncomplicated | CPT/HCPCS: 36415; 80048; 85025; 85610; 99214 ==

== ENCOUNTER 2025-07-06 06:48 | Outpatient (CLI) | payer MEDICARE, OTHER, SELFPAY ==
--- NOTE | 2025-07-06 07:00 | USCV_ITS ---
Lyndsay Perea Age: 75 Gender: M : 1950 Exam Date: 07/06/2025 07:24 Ordering Phys: Christine Alex Technologist: Moises Bajwa [place]am Location[place] [facility] [place] Indication: worsening sob BP: 132 / 78 HR: 67 Rhythm: Sinus Technical Quality: Adequate MEASUREMENTS (Male / Female) Normal Values 2D ECHO LV Diastolic Diameter PLAX 4.9 cm 4.2 - 5.9 / 3.9 - 5.3 cm IVS Diastolic Thickness 0.8 cm 0.6 - 1.0 / 0.6 - 0.9 cm IVS Systolic Thickness 1.0 cm LVPW Diastolic Thickness 1.0 cm 0.6 - 1.0 / 0.6 - 0.9 cm LVPW Systolic Thickness 1.5 cm LVOT Diameter 2.1 cm LV Ejection Fraction 2D Teich 41.2 % LV Ejection Fraction MOD 4C 35.9 % LV Ejection Fraction MOD 2C 45.7 % LV Ejection Fraction 2C AL 46.4 % LA Diameter 3.4 cm RA Systolic Volume 4C AL 35.6 ml RA Systolic Volume 4C MOD 34.9 ml LA Sys Volume AL 57.3 cm cubed LA Sys Volume Index AL 28.2 cm cubed/m squared Aorta at Sinotubular Diameter 2.5 cm IVC Diameter 1.9 cm M-MODE LA Ao Ratio MM 1.4 AV Cusp Separation MM 1.8 cm DOPPLER AV Peak Velocity 106.0 cm/s LVOT Peak Velocity 66.0 cm/s AV Area Cont Eq vti 1.6 cm squared AV Area Cont Eq pk 2.1 cm squared MV Peak Velocity 81.0 cm/s MV Area PHT 6.1 cm squared Mitral E to A Ratio 0.7 TR Peak Velocity 190.0 cm/s TR Peak Gradient 14.4 mmHg TR Mean Velocity 129.0 cm/s TR Mean Gradient 7.7 mmHg TR Velocity Time Integral 43.4 cm PV Peak Velocity 65.0 cm/s RV Ejection Time 0.3 s FINDINGS Left Ventricle Mildly increased left ventricular cavity size. Moderately decreased left ventricular systolic function. Left ventricular ejection fraction is estimated at 40 %. There appeared to be septal bounce due to interventricular conduction delay Grade I/IV diastolic dysfunction (abnormal relaxation filling pattern), normal to mildly elevated filling pressures. Right Ventricle Normal right ventricular size and systolic function. Right Atrium Normal right atrial size. Left Atrium Normal left atrial size. IA Septum Normal appearance of the interatrial septum. Mitral Valve Mildly thickened mitral valve. No mitral valve stenosis. Mild mitral valve regurgitation. Aortic Valve Mild aortic valve calcification. No aortic valve stenosis. Trace aortic valve regurgitation. Tricuspid Valve Mild tricuspid valve regurgitation. Pulmonic Valve Normal pulmonic valve structure. No pulmonic valve stenosis or regurgitation. Pericardium No pericardial effusion. Aorta Normal diameter of the aortic root and ascending thoracic aorta. IVC Moderately dilated IVC. Dilated IVC with decreased respiratory variation. CONCLUSIONS Mildly increased left ventricular cavity size. Moderately decreased left ventricular systolic function. Left ventricular ejection fraction is estimated at 40 %. There appeared to be septal bounce due to interventricular conduction delay Grade I/IV diastolic dysfunction (abnormal relaxation filling pattern), normal to mildly elevated filling pressures. Mildly thickened mitral valve. No mitral valve stenosis. Mild mitral valve regurgitation. Mild aortic valve calcification. No aortic valve stenosis. Trace aortic valve regurgitation. Mild tricuspid valve regurgitation. There is no pericardial effusion. Right atrial pressure is around 20 mm of mercury. Paco Boyer MD (Electronically Signed) Final Date: 15 July 2025 14:53 S
== END 2025-07-06 06:49 | disposition home or self-care (01) ==
PROVIDERS: PCP Electrodiagnostic Medicine; Visit Provider Nurse Practitioner Family
DX: R07.9 Chest pain, unspecified (principal); R06.00 Dyspnea, unspecified; I51.7 Cardiomegaly; R93.1 Abnormal findings on diagnostic imaging of heart and coronary circulation; I34.0 Nonrheumatic mitral (valve) insufficiency; I35.8 Other nonrheumatic aortic valve disorders; I07.1 Rheumatic tricuspid insufficiency; I86.8 Varicose veins of other specified sites
CPT/HCPCS: 93306